=== PATIENT | female | born 1965 | race Caucasian/White ===

== ENCOUNTER 2017-09-26 12:26 | Day surgery (SDC) | payer MEDICARE, OTHER ==
[~2017-09-26 12:26] MED LIST: ACET325 PO; ALPR.25 PO; ALPR.5; ALPR.5 PO; ALPR1 PO; ARIP15; ARIP15 PO; ATEN50; ATOR10; ATOR10 PO; ATOR40TA PO; ATOR80 PO; Allegra-D 12 H1 EACH; Alprazolam0.5 MG PO; BUME2; BUME2 PO; BUTALB-ACETAMI1 EACH; CARV25 PO; CARV6.25 PO; CEFU500 PO; CETI5 PO; CLON.1 PO; CLON.2; CLON.2 PO; CLOP75 PO; CODBUTACEC PO; CROM10OPSO BOTHEYES; CRUTCH4 XX; Carisoprodol350 MG PO; Crestor20 MG; DIAZ10; DIGO.125 PO; DILT120 PO; DILT30; DILT30 PO; DOXY100 PO; DOXY100T53; Dilaudid 2 mg Ta2 MG; EDARBI40 MG; EDARBI40 MG PO; ELIQUIS5 MG PO; ESOM20 PO; Enulose 2020 G/30 ML PO; Esgic Tablet1 EACH PO; FENT100TP TOP; FENT50TP TOP; FENT75TP TOP; FIORICET 50-301 EACH PO; FLONASE ALLERG9.9 ML NS; FLUC150A PO; FLUSAL2505; FLUSAL5005; FLUSAL5005 INH; FLUT.05NI; FLUT220OIA; FURO100EL IV; FURO20; FURO40 PO; FURO80 PO; Flonase 0.05% N16 GM; HYDACE5 PO; HYDACE5325; HYDMOR4 PO; HYDPAM50; Humalog Mi100 UNIT/4; Humalog100 UNIT/1 SC; INSLI100I SC; INSUASPI; Isosorbide Mono30 MG PO; K-TAB ER20 MEQ PO; LEVA.63IS IH; LEVA.63IS INH; LIDO5TO; LISI5 PO; LORA.5 PO; Lasix 10 mg/10 MG/ML INJ; Lisinopril2.5 MG; Lisinopril2.5 MG PO; Lopressor 25 mg25 MG PO; MEDICAL MARIJUANA; METCAR500 PO; METCAR750 PO; METO10; METO10 PO; METO2.5; METO2.5 PO; METO25; METO25 PO; METO25ER PO; METO50 PO; MIGRANAL INH; Micro-K10 MEQ PO; NAC600 MG PO; NICO21TP; NITR.6SL SL; NYST100000; Nexium40 MG; Nexium40 MG PO; Nitrostat0.4 MG SL; OMEP20ER; ONDA4 PO; ONDA4ODT MM; ONDA8; ONDA8 PO; OXYACE5T PO; OXYC20ER PO; OXYC30; OXYC30 PO; OXYC30ER PO; OXYC5 PO; OXYC80ER PO; Oxycontin60 MG; PANT40 PO; PARI1 PO; PARICALCITOL2 MCG PO; PARO10; PARO20 PO; PARO25; PARO30; PIOG15; POTA10T PO; POTA8; POTCHL20ER; POTCHL20ER PO; PRED10 PO; PREG100; PREG100 PO; PREG200 PO; PROM25; PROM25 PO; PROM25S PR; PSEU120ER PO; Phenergan25 MG PR; Potassium Chlo10 ME1; RANI150; RANI150 PO; RANO500T PO; REGLAN; ROSU10TA PO; RXOXYACE PO; Ranitidine HCl300 MG; Robaxin750 MG; Roxicodone15 MG PO; SOLI5; SOLI5 PO; SOMA250 MG; SOMA350 MG PO; SPIR25 PO; SPIR50 PO; SUCR1 PO; SUMA20NI; TOPI100; TOPI100 PO; TOPI25 PO; TRIA50 PO; TRIHYD253B PO; Treximet 85-501 EACH; VALS80 PO; XARELTO15 MG PO; XARELTO20 MG PO; Xopenex Hfa15 GM INH; [UNRECOGNIZED DRUG - CODE]
[2018-01-04] MEDS ORDERED: MIDO2.5 PO (16:11)
[2018-05-13] MEDS ORDERED: ALPR.25 PO (23:34)
== END 2017-09-26 15:37 | disposition home or self-care (01) ==
LOC: ATC 12:26
DX: E87.79 Other fluid overload (principal)
CPT/HCPCS: 96374; J1940

== ENCOUNTER 2017-10-17 14:32 | Day surgery (SDC) | payer MEDICARE, OTHER ==
[2017-10-17] MEDS ORDERED: ENTRESTO 24 MG1 EACH PO (15:47)
[2018-01-04] MEDS ORDERED: MIDO2.5 PO (16:11)
[2018-05-13] MEDS ORDERED: ALPR.25 PO (23:34)
== END 2017-10-17 15:48 | disposition home or self-care (01) ==
LOC: ATC 14:32
DX: E87.79 Other fluid overload (principal)
CPT/HCPCS: 96374; J1940

== ENCOUNTER 2017-12-02 09:52 | Inpatient (IN) | payer MEDICARE, OTHER ==
[~2017-12-02] VITALS: Ht 167.6 cm; Wt 86.2 kg
[~2017-12-02 09:52] MED LIST changes: +ENTRESTO 24 MG1 EACH PO
[2017-12-02 10:36] LABS: PO2 Arterial 60.2 mmHg (80-100)
[2017-12-02 10:37] LABS: PCO2 Arterial 71.1 mmHg (35-45); pH Blood Arterial 7.12 (7.35-7.45)
[2017-12-02 10:46] LABS: BASOPHILS ABSOLUTE AUTO 0.05 K/mm3 (0.00-0.23); BASOPHILS PERCENT AUTO 0 % (0-2); EOSINOPHILS ABSOLUTE AUTO 0.11 K/mm3 (0.00-0.68); EOSINOPHILS PERCENT AUTO 1 % (0-6); Hematocrit 40.6 % (33.0-51.0); Hemoglobin 11.9 g/dL (11.5-16.0); Mean Corpuscular HGB 26.2 pg (26.0-34.0); Mean Corpuscular HGB Conc 29.3 g/dL (31.5-36.5); Mean Corpuscular Volume 89 fL (80-100); Mean Platelet Volume 10.6 fL (9.1-12.4); Platelet Count 159 K/mm3 (150-400); RDW Standard Deviation 59.3 fL (35.1-46.3); Red Blood Cell Count 4.55 M/mm3 (3.80-5.20); White Blood Cell Count 15.96 K/mm3 (4.00-11.30)
[2017-12-02 10:48] LABS: Bilirubin, Urine Neg (Neg); Blood, Urine 2+ (Neg); Glucose Qualitative, Urine 2+ (Neg); Ketones, Urine 1+ (Neg); Leukocyte Esterase, Urine Neg (Neg); Nitrite, Urine Neg (Neg); Protein, Urine 4+ (Neg); Urobilinogen, Urine NORM (Normal)
[2017-12-02 10:52] LABS: IMMATURE GRAN PERCENT AUTO 1 % (0-1); LYMPHOCYTES ABSOLUTE AUTO 2.47 K/mm3 (0.84-5.20); LYMPHOCYTES PERCENT AUTO 16 % (21-46); MONOCYTES ABSOLUTE AUTO 0.15 K/mm3 (0.16-1.47); MONOCYTES PERCENT AUTO 1 % (4-13); NEUTROPHILS ABSOLUTE AUTO 12.98 K/mm3 (1.96-9.15); NEUTROPHILS PERCENT AUTO 81 % (41-73)
[2017-12-02 11:03] LABS: Troponin I <0.015 ng/mL (0.000-0.040)
[2017-12-02 11:05] LABS: Alanine Aminotransfer (ALT/SGP 83 U/L (12-78); Albumin, Blood 2.5 g/dL (3.4-5.0); Albumin/Globulin Ratio 0.7 (0.8-1.8); Alk Phos 151 U/L (50-136); Anion Gap 9 mmol/L (6-16); Aspartate Aminotrans (AST/SGOT 105 U/L (12-37); Bilirubin, Total 0.4 mg/dL (0.1-1.0); Blood Urea Nitrogen 15 mg/dL (8-24); Bun/Creatinine Ratio 16.7 (12.0-20.0); CO2, Blood 23 mmol/L (21-32); Calcium, Blood 9.3 mg/dL (8.5-10.1); Chloride, Blood 109 mmol/L (98-108); Globulin, Blood 3.4 g/dL (2.2-4.0); Glomerular Filtration Rate >60 (60-); Glucose, Blood 414 mg/dL (70-99); Potassium, Blood 5.1 mmol/L (3.5-5.5); Sodium, Blood 141 mmol/L (136-145); Total Protein, Blood 5.9 g/dL (6.4-8.2)
[2017-12-02 11:05] LABS: U Amphetamine Screen Not Detected; U Barbituate Screen DETECTED; U Methamphetamine Screen Not Detected
[2017-12-02 11:06] LABS: Appearance, Urine Cloudy (Clear); Color, Urine Yellow (P-Yellow); U Benzodiazapine Screen DETECTED; U Buprenorphine Screen Not Detected; U Cannabinoids Screen DETECTED; U Cocaine Screen Not Detected; U Methadone Screen Not Detected; U Opiates Screen Not Detected; U Oxycodone Screen DETECTED; U Phencyclidine Screen Not Detected; U Propoxyphene Screen Not Detected
[2017-12-02 11:07] LABS: Hyaline Casts 0-2 /lpf (0-2)
[2017-12-02 11:08] LABS: Amorphous Light (0-Heavy); Bacteria Few /hpf; Squamous Epithelial Cells Few /hpf (Few)
[2017-12-02 11:08] LABS: International Normalized Ratio 1.21; Prothrombin Time Results 12.7 Sec (9.7-11.5)
[2017-12-02 12:08] LABS: pH Blood Arterial 7.25 (7.35-7.45)
[2017-12-02 14:44] LABS: Creatine Kinase MB 1.5 ng/mL (0.0-3.6); Creatine Kinase MB Index 2.5 (0.0-4.0); Magnesium, Blood 1.9 mg/dL (1.6-2.4)
[2017-12-02 14:53] LABS: Phosphorus, Blood 3.7 mg/dL (2.5-4.9); Troponin I 0.073 ng/mL (0.000-0.040)
[2017-12-03 00:47] LABS: BASOPHILS ABSOLUTE AUTO 0.01 K/mm3 (0.00-0.23); BASOPHILS PERCENT AUTO 0 % (0-2); EOSINOPHILS ABSOLUTE AUTO 0.01 K/mm3 (0.00-0.68); EOSINOPHILS PERCENT AUTO 0 % (0-6); Hemoglobin 13.2 g/dL (11.5-16.0); IMMATURE GRAN ABSOLUTE AUTO 0.04 K/mm3 (0.00-0.10); IMMATURE GRAN PERCENT AUTO 0 % (0-1); LYMPHOCYTES ABSOLUTE AUTO 1.69 K/mm3 (0.84-5.20); LYMPHOCYTES PERCENT AUTO 15 % (21-46); MONOCYTES ABSOLUTE AUTO 1.07 K/mm3 (0.16-1.47); MONOCYTES PERCENT AUTO 9 % (4-13); Mean Corpuscular HGB 26.1 pg (26.0-34.0); Mean Corpuscular HGB Conc 30.7 g/dL (31.5-36.5); Mean Platelet Volume 11.6 fL (9.1-12.4); NEUTROPHILS ABSOLUTE AUTO 8.62 K/mm3 (1.96-9.15); NEUTROPHILS PERCENT AUTO 75 % (41-73); Platelet Count 165 K/mm3 (150-400); RDW Coefficient Variation 18.4 % (11.7-14.2); RDW Standard Deviation 57.1 fL (35.1-46.3); Red Blood Cell Count 5.06 M/mm3 (3.80-5.20); White Blood Cell Count 11.44 K/mm3 (4.00-11.30)
[2017-12-03 00:49] LABS: Mean Corpuscular Volume 85 fL (80-100)
[2017-12-03 01:07] LABS: Creatine Kinase MB 2.8 ng/mL (0.0-3.6); Creatine Kinase MB Index 4.2 (0.0-4.0); Troponin I 0.145 ng/mL (0.000-0.040)
[2017-12-03 01:10] LABS: Alanine Aminotransfer (ALT/SGP 96 U/L (12-78); Albumin/Globulin Ratio 0.9 (0.8-1.8); Alk Phos 151 U/L (50-136); Anion Gap 8 mmol/L (6-16); Aspartate Aminotrans (AST/SGOT 70 U/L (12-37); Bilirubin, Total 0.7 mg/dL (0.1-1.0); Blood Urea Nitrogen 22 mg/dL (8-24); Bun/Creatinine Ratio 22.9 (12.0-20.0); CO2, Blood 22 mmol/L (21-32); Calcium, Blood 8.7 mg/dL (8.5-10.1); Chloride, Blood 113 mmol/L (98-108); Creatinine, Blood 0.96 mg/dL (0.40-1.00); Globulin, Blood 3.5 g/dL (2.2-4.0); Glomerular Filtration Rate >60 (60-); Glucose, Blood 133 mg/dL (70-99); Potassium, Blood 4.4 mmol/L (3.5-5.5); Sodium, Blood 143 mmol/L (136-145); Total Protein, Blood 6.5 g/dL (6.4-8.2)
[2017-12-03 05:33] LABS: PCO2 Arterial 32.8 mmHg (35-45); PO2 Arterial 95.1 mmHg (80-100); pH Blood Arterial 7.44 (7.35-7.45)
[2017-12-03 14:14] LABS: Hematocrit 41.3 % (33.0-51.0)
[2017-12-04 04:00] LABS: BASOPHILS ABSOLUTE AUTO 0.01 K/mm3 (0.00-0.23); BASOPHILS PERCENT AUTO 0 % (0-2); EOSINOPHILS ABSOLUTE AUTO 0.02 K/mm3 (0.00-0.68); EOSINOPHILS PERCENT AUTO 0 % (0-6); Hematocrit 37.3 % (33.0-51.0); IMMATURE GRAN ABSOLUTE AUTO 0.04 K/mm3 (0.00-0.10); IMMATURE GRAN PERCENT AUTO 0 % (0-1); LYMPHOCYTES ABSOLUTE AUTO 1.92 K/mm3 (0.84-5.20); LYMPHOCYTES PERCENT AUTO 14 % (21-46); MONOCYTES ABSOLUTE AUTO 1.09 K/mm3 (0.16-1.47); MONOCYTES PERCENT AUTO 8 % (4-13); Mean Corpuscular HGB 26.4 pg (26.0-34.0); Mean Corpuscular HGB Conc 32.2 g/dL (31.5-36.5); NEUTROPHILS ABSOLUTE AUTO 10.38 K/mm3 (1.96-9.15); NEUTROPHILS PERCENT AUTO 77 % (41-73); Platelet Count 140 K/mm3 (150-400); RDW Coefficient Variation 18.8 % (11.7-14.2); RDW Standard Deviation 56.6 fL (35.1-46.3); Red Blood Cell Count 4.55 M/mm3 (3.80-5.20); White Blood Cell Count 13.46 K/mm3 (4.00-11.30)
[2017-12-04 04:07] LABS: Mean Corpuscular Volume 82 fL (80-100)
[2017-12-04 04:19] LABS: Alanine Aminotransfer (ALT/SGP 62 U/L (12-78); Albumin, Blood 2.8 g/dL (3.4-5.0); Albumin/Globulin Ratio 0.8 (0.8-1.8); Alk Phos 115 U/L (50-136); Anion Gap 8 mmol/L (6-16); Aspartate Aminotrans (AST/SGOT 25 U/L (12-37); Bilirubin, Total 0.4 mg/dL (0.1-1.0); Blood Urea Nitrogen 20 mg/dL (8-24); Bun/Creatinine Ratio 23.7 (12.0-20.0); CO2, Blood 27 mmol/L (21-32); Chloride, Blood 108 mmol/L (98-108); Creatinine, Blood 0.84 mg/dL (0.40-1.00); Globulin, Blood 3.3 g/dL (2.2-4.0); Glomerular Filtration Rate >60 (60-); Glucose, Blood 135 mg/dL (70-99); Magnesium, Blood 1.6 mg/dL (1.6-2.4); Phosphorus, Blood 2.5 mg/dL (2.5-4.9); Sodium, Blood 143 mmol/L (136-145); Total Protein, Blood 6.1 g/dL (6.4-8.2)
[2017-12-04 06:01] LABS: PCO2 Arterial 33.6 mmHg (35-45); PO2 Arterial 58.4 mmHg (80-100); pH Blood Arterial 7.54 (7.35-7.45)
[2017-12-05 05:17] LABS: BASOPHILS ABSOLUTE AUTO 0.03 K/mm3 (0.00-0.23); BASOPHILS PERCENT AUTO 0 % (0-2); EOSINOPHILS ABSOLUTE AUTO 0.12 K/mm3 (0.00-0.68); EOSINOPHILS PERCENT AUTO 2 % (0-6); Hematocrit 32.8 % (33.0-51.0); Hemoglobin 10.2 g/dL (11.5-16.0); IMMATURE GRAN ABSOLUTE AUTO 0.03 K/mm3 (0.00-0.10); IMMATURE GRAN PERCENT AUTO 0 % (0-1); LYMPHOCYTES ABSOLUTE AUTO 2.58 K/mm3 (0.84-5.20); LYMPHOCYTES PERCENT AUTO 31 % (21-46); MONOCYTES ABSOLUTE AUTO 0.72 K/mm3 (0.16-1.47); MONOCYTES PERCENT AUTO 9 % (4-13); Mean Corpuscular HGB 26.3 pg (26.0-34.0); Mean Corpuscular HGB Conc 31.1 g/dL (31.5-36.5); Mean Platelet Volume 11.2 fL (9.1-12.4); NEUTROPHILS ABSOLUTE AUTO 4.77 K/mm3 (1.96-9.15); NEUTROPHILS PERCENT AUTO 58 % (41-73); Platelet Count 107 K/mm3 (150-400); RDW Coefficient Variation 18.6 % (11.7-14.2); RDW Standard Deviation 57.1 fL (35.1-46.3); Red Blood Cell Count 3.88 M/mm3 (3.80-5.20); White Blood Cell Count 8.25 K/mm3 (4.00-11.30)
[2017-12-05 05:24] LABS: Mean Corpuscular Volume 85 fL (80-100)
[2017-12-05 05:40] LABS: Magnesium, Blood 1.6 mg/dL (1.6-2.4)
[2017-12-05 05:41] LABS: Anion Gap 7 mmol/L (6-16); Blood Urea Nitrogen 18 mg/dL (8-24); Bun/Creatinine Ratio 23.3 (12.0-20.0); CO2, Blood 29 mmol/L (21-32); Calcium, Blood 7.8 mg/dL (8.5-10.1); Chloride, Blood 105 mmol/L (98-108); Creatinine, Blood 0.77 mg/dL (0.40-1.00); Glomerular Filtration Rate >60 (60-); Glucose, Blood 90 mg/dL (70-99); Phosphorus, Blood 3.2 mg/dL (2.5-4.9); Potassium, Blood 3.1 mmol/L (3.5-5.5); Sodium, Blood 141 mmol/L (136-145)
[2017-12-05 06:18] LABS: PCO2 Arterial 47.9 mmHg (35-45); pH Blood Arterial 7.42 (7.35-7.45)
[2017-12-06 04:40] LABS: BASOPHILS ABSOLUTE AUTO 0.03 K/mm3 (0.00-0.23); BASOPHILS PERCENT AUTO 0 % (0-2); EOSINOPHILS ABSOLUTE AUTO 0.16 K/mm3 (0.00-0.68); EOSINOPHILS PERCENT AUTO 2 % (0-6); Hematocrit 36.9 % (33.0-51.0); Hemoglobin 11.5 g/dL (11.5-16.0); IMMATURE GRAN ABSOLUTE AUTO 0.02 K/mm3 (0.00-0.10); IMMATURE GRAN PERCENT AUTO 0 % (0-1); LYMPHOCYTES ABSOLUTE AUTO 2.38 K/mm3 (0.84-5.20); LYMPHOCYTES PERCENT AUTO 30 % (21-46); MONOCYTES ABSOLUTE AUTO 0.69 K/mm3 (0.16-1.47); MONOCYTES PERCENT AUTO 9 % (4-13); Mean Corpuscular HGB 26.3 pg (26.0-34.0); Mean Corpuscular HGB Conc 31.2 g/dL (31.5-36.5); Mean Corpuscular Volume 84 fL (80-100); Mean Platelet Volume 11.3 fL (9.1-12.4); NEUTROPHILS ABSOLUTE AUTO 4.62 K/mm3 (1.96-9.15); NEUTROPHILS PERCENT AUTO 59 % (41-73); Platelet Count 124 K/mm3 (150-400); RDW Coefficient Variation 17.5 % (11.7-14.2); RDW Standard Deviation 54.1 fL (35.1-46.3); Red Blood Cell Count 4.37 M/mm3 (3.80-5.20)
[2017-12-06 04:54] LABS: Anion Gap 7 mmol/L (6-16); Blood Urea Nitrogen 15 mg/dL (8-24); CO2, Blood 31 mmol/L (21-32); Calcium, Blood 8.2 mg/dL (8.5-10.1); Chloride, Blood 100 mmol/L (98-108); Creatinine, Blood 0.83 mg/dL (0.40-1.00); Glomerular Filtration Rate >60 (60-); Glucose, Blood 88 mg/dL (70-99); Magnesium, Blood 1.6 mg/dL (1.6-2.4); Potassium, Blood 3.2 mmol/L (3.5-5.5); Sodium, Blood 138 mmol/L (136-145)
[2017-12-06] MEDS ORDERED: DOXY100 PO (12:09)
[2018-01-04] MEDS ORDERED: MIDO2.5 PO (16:11)
[2018-05-13] MEDS ORDERED: ALPR.25 PO (23:34)
== END 2017-12-06 19:48 | disposition home or self-care (01) | DRG 208 ==
LOC: ER 09:52 → ICUE 12:10 → ICUW 12:10 → PCU 12:10 → ICUE 13:26 → PCU 12-05 18:22
PROVIDERS: Family Medicine; Internal Medicine; Internal Medicine Critical Care Medicine
PROC: 5A1945Z Respiratory Ventilation, 24-96 Consecutive Hours (ICD-10-PCS; principal; 2017-12-02)
PROC: 30233N1 Transfusion of Nonautologous Red Blood Cells into Peripheral Vein, Percutaneous Approach (ICD-10-PCS; 2017-12-04)
DX: J96.01 Acute respiratory failure with hypoxia (principal); I46.9 Cardiac arrest, cause unspecified; J69.0 Pneumonitis due to inhalation of food and vomit; G92 Toxic encephalopathy; I50.23 Acute on chronic systolic (congestive) heart failure; J18.9 Pneumonia, unspecified organism; K92.2 Gastrointestinal hemorrhage, unspecified; R55 Syncope and collapse; I48.0 Paroxysmal atrial fibrillation; E11.9 Type 2 diabetes mellitus without complications; T40.605A Adverse effect of unspecified narcotics, initial encounter; J44.9 Chronic obstructive pulmonary disease, unspecified; R53.81 Other malaise; G89.29 Other chronic pain; Z79.4 Long term (current) use of insulin; Z79.01 Long term (current) use of anticoagulants; R41.89 Other symptoms and signs involving cognitive functions and awareness
CPT/HCPCS: 31720; 36415; 36600; 51702; 71045; 71046; 80048; 80053; 81001; 82550; 82553; 82803; 82947; 83605; 83735; 84100; 84484; 85014; 85018; 85025; 85610; 87040; 87070; 87086; 87205; 92950; 93005; 93010; 93306; 94002; 94003; 94640; 94667; 94760; 96365; 96375; 97116; 97162; 97530; 99291; C9113; G8978; G8979; J0696; J1815; J1940; J2060; J3010; J3475; J3480; J7030; J7060

== ENCOUNTER 2017-12-10 09:00 | Day surgery (SDC) | payer MEDICARE, OTHER ==
[2018-01-04] MEDS ORDERED: MIDO2.5 PO (16:11)
[2018-05-13] MEDS ORDERED: ALPR.25 PO (23:34)
== END 2017-12-10 11:00 | disposition home or self-care (01) ==
LOC: ATC 09:00
DX: E87.79 Other fluid overload (principal); Z88.8 Allergy status to other drugs, medicaments and biological substances
CPT/HCPCS: 96374; J1940

== ENCOUNTER 2017-12-11 15:55 | Emergency (ER) | payer MEDICARE, OTHER ==
[~2017-12-11] VITALS: Ht 160 cm; Wt 77.1 kg
[2018-01-04] MEDS ORDERED: MIDO2.5 PO (16:11)
[2018-05-13] MEDS ORDERED: ALPR.25 PO (23:34)
== END 2017-12-11 18:09 | disposition home or self-care (01) ==
LOC: ER 15:55
DX: M79.662 Pain in left lower leg (principal); I50.9 Heart failure, unspecified; J44.9 Chronic obstructive pulmonary disease, unspecified; E11.22 Type 2 diabetes mellitus with diabetic chronic kidney disease; N18.9 Chronic kidney disease, unspecified; F17.210 Nicotine dependence, cigarettes, uncomplicated; Z88.5 Allergy status to narcotic agent; Z91.013 Allergy to seafood; Z88.8 Allergy status to other drugs, medicaments and biological substances; Z88.0 Allergy status to penicillin; Z88.2 Allergy status to sulfonamides; Z88.6 Allergy status to analgesic agent; Z88.1 Allergy status to other antibiotic agents; Z91.018 Allergy to other foods; Z79.899 Other long term (current) drug therapy; Z86.73 Personal history of transient ischemic attack (TIA), and cerebral infarction without residual deficits; Z79.01 Long term (current) use of anticoagulants
CPT/HCPCS: 99282

== ENCOUNTER 2017-12-30 16:20 | Inpatient (IN) | payer MEDICARE, OTHER ==
[~2017-12-30] VITALS: Ht 162.6 cm; Wt 72.5 kg
[2017-12-30 18:33] LABS: BASOPHILS ABSOLUTE AUTO 0.03 K/mm3 (0.00-0.23); BASOPHILS PERCENT AUTO 0 % (0-2); EOSINOPHILS ABSOLUTE AUTO 0.18 K/mm3 (0.00-0.68); EOSINOPHILS PERCENT AUTO 2 % (0-6); Hematocrit 38.3 % (33.0-51.0); Hemoglobin 11.7 g/dL (11.5-16.0); IMMATURE GRAN ABSOLUTE AUTO 0.02 K/mm3 (0.00-0.10); IMMATURE GRAN PERCENT AUTO 0 % (0-1); LYMPHOCYTES ABSOLUTE AUTO 2.95 K/mm3 (0.84-5.20); LYMPHOCYTES PERCENT AUTO 29 % (21-46); MONOCYTES ABSOLUTE AUTO 0.76 K/mm3 (0.16-1.47); MONOCYTES PERCENT AUTO 7 % (4-13); Mean Corpuscular HGB 25.8 pg (26.0-34.0); Mean Corpuscular HGB Conc 30.5 g/dL (31.5-36.5); Mean Corpuscular Volume 85 fL (80-100); Mean Platelet Volume 10.4 fL (9.1-12.4); NEUTROPHILS ABSOLUTE AUTO 6.32 K/mm3 (1.96-9.15); NEUTROPHILS PERCENT AUTO 62 % (41-73); Platelet Count 224 K/mm3 (150-400); RDW Coefficient Variation 16.1 % (11.7-14.2); RDW Standard Deviation 50.4 fL (35.1-46.3); Red Blood Cell Count 4.53 M/mm3 (3.80-5.20); White Blood Cell Count 10.26 K/mm3 (4.00-11.30)
[2017-12-30 18:44] LABS: International Normalized Ratio 1.23; Prothrombin Time Results 12.9 Sec (9.7-11.5)
[2017-12-30 18:52] LABS: Alanine Aminotransfer (ALT/SGP 17 U/L (12-78); Albumin, Blood 3.1 g/dL (3.4-5.0); Albumin/Globulin Ratio 0.8 (0.8-1.8); Alk Phos 104 U/L (50-136); Anion Gap 6 mmol/L (6-16); Aspartate Aminotrans (AST/SGOT 12 U/L (12-37); Bilirubin, Total 0.3 mg/dL (0.1-1.0); Blood Urea Nitrogen 8 mg/dL (8-24); Bun/Creatinine Ratio 10.6 (12.0-20.0); CO2, Blood 30 mmol/L (21-32); Calcium, Blood 8.9 mg/dL (8.5-10.1); Chloride, Blood 106 mmol/L (98-108); Creatinine, Blood 0.76 mg/dL (0.40-1.00); Glomerular Filtration Rate >60 (60-); Glucose, Blood 114 mg/dL (70-99); Potassium, Blood 3.3 mmol/L (3.5-5.5); Sodium, Blood 142 mmol/L (136-145); Total Protein, Blood 7.1 g/dL (6.4-8.2); Troponin I <0.015 ng/mL (0.000-0.040)
[2017-12-30] MEDS ORDERED: BUME2 PO (22:52)
[2017-12-30] MEDS ORDERED: METO2.5 PO (22:53)
[2017-12-31 00:14] LABS: Source, Urine Catheter
[2017-12-31 00:17] LABS: Bilirubin, Urine Neg (Neg); Blood, Urine Neg (Neg); Glucose Qualitative, Urine Neg (Neg); Ketones, Urine 1+ (Neg); Leukocyte Esterase, Urine 1+ (Neg); Nitrite, Urine Neg (Neg); Protein, Urine 1+ (Neg); Specific Gravity, Urine 1.015 (1.003-1.022); Urobilinogen, Urine NORM (Normal); pH, Urine 6.5 (5.0-8.0)
[2017-12-31 00:22] LABS: Amorphous Light (0-Heavy); Appearance, Urine Hazy (Clear); Bacteria Few /hpf; Color, Urine Amber (P-Yellow); Mucus Light (0-Heavy); Red Blood Cells, Urine Not Seen /hpf (0-2); Squamous Epithelial Cells Few /hpf (Few)
[2017-12-31 00:23] LABS: Transitional Epithelial Cells Few /hpf (0-Rare); WBC Cast 0-2 /lpf (0)
[2017-12-31 16:23] LABS: Albumin, Blood 3.2 g/dL (3.4-5.0); Anion Gap 4 mmol/L (6-16); Blood Urea Nitrogen 15 mg/dL (8-24); Bun/Creatinine Ratio 11.7 (12.0-20.0); CO2, Blood 33 mmol/L (21-32); Chloride, Blood 99 mmol/L (98-108); Creatinine, Blood 1.28 mg/dL (0.40-1.00); Glomerular Filtration Rate 47 (60-); Glucose, Blood 111 mg/dL (70-99); Phosphorus, Blood 5.2 mg/dL (2.5-4.9); Sodium, Blood 136 mmol/L (136-145)
== END 2017-12-31 19:05 | disposition home or self-care (01) | DRG 291 ==
LOC: ER 16:20 → PCU 20:50
PROVIDERS: Internal Medicine; Physician Assistant Medical
DX: I13.0 Hypertensive heart and chronic kidney disease with heart failure and stage 1 through stage 4 chronic kidney disease, or unspecified chronic kidney disease (principal); I50.23 Acute on chronic systolic (congestive) heart failure; J96.21 Acute and chronic respiratory failure with hypoxia; J44.1 Chronic obstructive pulmonary disease with (acute) exacerbation; F11.20 Opioid dependence, uncomplicated; E11.22 Type 2 diabetes mellitus with diabetic chronic kidney disease; N18.9 Chronic kidney disease, unspecified; I48.0 Paroxysmal atrial fibrillation; E11.42 Type 2 diabetes mellitus with diabetic polyneuropathy; I25.10 Atherosclerotic heart disease of native coronary artery without angina pectoris; G47.33 Obstructive sleep apnea (adult) (pediatric); F17.210 Nicotine dependence, cigarettes, uncomplicated; E87.6 Hypokalemia; F32.9 Major depressive disorder, single episode, unspecified; F41.9 Anxiety disorder, unspecified; K21.9 Gastro-esophageal reflux disease without esophagitis; M79.7 Fibromyalgia; Z91.14 Patient's other noncompliance with medication regimen; Z79.01 Long term (current) use of anticoagulants; Z79.02 Long term (current) use of antithrombotics/antiplatelets; Z86.73 Personal history of transient ischemic attack (TIA), and cerebral infarction without residual deficits; Z79.84 Long term (current) use of oral hypoglycemic drugs; I25.2 Old myocardial infarction; Z98.1 Arthrodesis status; Z88.0 Allergy status to penicillin; Z71.6 Tobacco abuse counseling; Z88.8 Allergy status to other drugs, medicaments and biological substances
CPT/HCPCS: 36415; 51702; 71045; 80053; 80069; 81001; 82947; 83880; 84484; 85025; 85610; 93005; 93010; 94640; 96365; 96367; 96375; 99285; J0692; J1940; J2930; J3010; J3370; J7030

== ENCOUNTER → 2018-02-08 | Outpatient (CLI) | payer MEDICARE, OTHER ==
[~2018-02-08] MED LIST changes: +MIDO2.5 PO
[2018-02-08 19:31] LABS: Alanine Aminotransfer (ALT/SGP 21 U/L (12-78); Albumin, Blood 3.5 g/dL (3.4-5.0); Albumin/Globulin Ratio 1.2 (0.8-1.8); Alk Phos 97 U/L (50-136); Anion Gap 8 mmol/L (6-16); Aspartate Aminotrans (AST/SGOT 19 U/L (12-37); Bilirubin, Total 0.4 mg/dL (0.1-1.0); Blood Urea Nitrogen 13 mg/dL (8-24); Bun/Creatinine Ratio 14.1 (12.0-20.0); CO2, Blood 30 mmol/L (21-32); Calcium, Blood 8.5 mg/dL (8.5-10.1); Chloride, Blood 101 mmol/L (98-108); Creatinine, Blood 0.92 mg/dL (0.40-1.00); Glomerular Filtration Rate >60 (60-); Glucose, Blood 87 mg/dL (70-99); Magnesium, Blood 1.7 mg/dL (1.6-2.4); Sodium, Blood 139 mmol/L (136-145); Total Protein, Blood 6.5 g/dL (6.4-8.2)
== END | disposition home or self-care (01) ==
LOC: LAB 12:00 → LAB SHORT 12:00
PROVIDERS: Internal Medicine Hematology & Oncology
DX: K31.84 Gastroparesis (principal); I51.89 Other ill-defined heart diseases; R06.00 Dyspnea, unspecified
CPT/HCPCS: 80053; 83735

== ENCOUNTER 2018-02-20 06:20 | Day surgery (SDC) | payer MEDICARE, OTHER ==
[~2018-02-20] VITALS: Ht 160 cm; Wt 78.9 kg
[2018-02-20] MEDS ORDERED: METO50 PO (07:02)
[2018-02-20] MEDS ORDERED: Amiodarone HCl200 MG PO (07:09)
== END 2018-02-20 22:53 | disposition home or self-care (01) ==
LOC: ORSCMMR 06:20 → ORD 07:30 → ORSCMMR 22:53
PROVIDERS: Surgery
PROC: 0JH60WZ Insertion of Totally Implantable Vascular Access Device into Chest Subcutaneous Tissue and Fascia, Open Approach (ICD-10-PCS; principal; 2018-02-20 07:30)
PROC: 0JPV0WZ Removal of Totally Implantable Vascular Access Device from Upper Extremity Subcutaneous Tissue and Fascia, Open Approach (ICD-10-PCS; principal; 2018-02-20 07:30)
DX: T82.524A Displacement of infusion catheter, initial encounter (principal); Z45.2 Encounter for adjustment and management of vascular access device; E87.79 Other fluid overload; J81.1 Chronic pulmonary edema; Z86.74 Personal history of sudden cardiac arrest; I25.10 Atherosclerotic heart disease of native coronary artery without angina pectoris; F17.210 Nicotine dependence, cigarettes, uncomplicated; F41.8 Other specified anxiety disorders; J44.9 Chronic obstructive pulmonary disease, unspecified; K21.9 Gastro-esophageal reflux disease without esophagitis; E11.9 Type 2 diabetes mellitus without complications; I10 Essential (primary) hypertension; E78.00 Pure hypercholesterolemia, unspecified; G47.33 Obstructive sleep apnea (adult) (pediatric); Z79.01 Long term (current) use of anticoagulants; Z79.4 Long term (current) use of insulin; Z79.899 Other long term (current) drug therapy
CPT/HCPCS: 77001; 82947; C1788; J0690; J1642; J2001; J2250; J3010; J7120

== ENCOUNTER 2018-04-04 02:52 | Inpatient (IN) | payer MEDICARE, OTHER ==
[~2018-04-04] VITALS: Ht 162.6 cm; Wt 74.4 kg
[~2018-04-04 02:52] MED LIST changes: +Amiodarone HCl200 MG PO
[2018-04-04 03:06] LABS: BASOPHILS ABSOLUTE AUTO 0.06 K/mm3 (0.00-0.23); BASOPHILS PERCENT AUTO 0 % (0-2); EOSINOPHILS ABSOLUTE AUTO 0.09 K/mm3 (0.00-0.68); EOSINOPHILS PERCENT AUTO 1 % (0-6); Hematocrit 44.6 % (33.0-51.0); IMMATURE GRAN ABSOLUTE AUTO 0.08 K/mm3 (0.00-0.10); IMMATURE GRAN PERCENT AUTO 1 % (0-1); LYMPHOCYTES ABSOLUTE AUTO 3.16 K/mm3 (0.84-5.20); LYMPHOCYTES PERCENT AUTO 21 % (21-46); MONOCYTES ABSOLUTE AUTO 1.01 K/mm3 (0.16-1.47); MONOCYTES PERCENT AUTO 7 % (4-13); Mean Corpuscular HGB 22.6 pg (26.0-34.0); Mean Corpuscular HGB Conc 29.1 g/dL (31.5-36.5); Mean Corpuscular Volume 78 fL (80-100); Mean Platelet Volume 11.2 fL (9.1-12.4); NEUTROPHILS PERCENT AUTO 71 % (41-73); Platelet Count 228 K/mm3 (150-400); RDW Coefficient Variation 19.9 % (11.7-14.2); RDW Standard Deviation 53.5 fL (35.1-46.3); Red Blood Cell Count 5.74 M/mm3 (3.80-5.20)
[2018-04-04 03:24] LABS: PCO2 Venous 53.7 mmHg (38-42); PO2 Venous 38.4 mmHg (38-42); pH Blood Venous 7.27 (7.34-7.37)
[2018-04-04 03:24] LABS: Alanine Aminotransfer (ALT/SGP 22 U/L (12-78); Albumin, Blood 3.5 g/dL (3.4-5.0); Albumin/Globulin Ratio 0.9 (0.8-1.8); Alk Phos 112 U/L (50-136); Anion Gap 11 mmol/L (6-16); Aspartate Aminotrans (AST/SGOT 18 U/L (12-37); Bilirubin, Total 0.5 mg/dL (0.1-1.0); Blood Urea Nitrogen 11 mg/dL (8-24); Bun/Creatinine Ratio 13.2 (12.0-20.0); CO2, Blood 26 mmol/L (21-32); Calcium, Blood 8.9 mg/dL (8.5-10.1); Chloride, Blood 100 mmol/L (98-108); Creatinine, Blood 0.83 mg/dL (0.40-1.00); Globulin, Blood 4.1 g/dL (2.2-4.0); Glomerular Filtration Rate >60 (60-); Glucose, Blood 293 mg/dL (70-99); Potassium, Blood 4.1 mmol/L (3.5-5.5); Sodium, Blood 137 mmol/L (136-145); Total Protein, Blood 7.6 g/dL (6.4-8.2); Troponin I <0.015 ng/mL (0.000-0.040)
[2018-04-04 03:25] LABS: Base Excess Venous -1.9 mmol/L; Bicarbonate Venous 21.5 mmol/L (24.0-30.0)
[2018-04-04 04:08] LABS: Base Excess Venous -1.7 mmol/L; Bicarbonate Venous 22.2 mmol/L (24.0-30.0); PCO2 Venous 51.8 mmHg (38-42); PO2 Venous 55.1 mmHg (38-42); pH Blood Venous 7.29 (7.34-7.37)
[2018-04-04 04:22] LABS: Source, Urine Catheter
[2018-04-04 04:24] LABS: Bilirubin, Urine Neg (Neg); Blood, Urine 1+ (Neg); Glucose Qualitative, Urine 1+ (Neg); Ketones, Urine 2+ (Neg); Leukocyte Esterase, Urine 1+ (Neg); Nitrite, Urine Neg (Neg); Protein, Urine 3+ (Neg); Urobilinogen, Urine NORM (Normal)
[2018-04-04 04:31] LABS: Appearance, Urine Hazy (Clear); Color, Urine Yellow (P-Yellow)
[2018-04-04 04:32] LABS: Amorphous Mod (0-Heavy); Bacteria Few /hpf; Red Blood Cells, Urine Rare /hpf (0-2); Squamous Epithelial Cells Few /hpf (Few); WBC Cast 0-2 /lpf (0)
[2018-04-04 15:05] LABS: Hematocrit 42.5 % (33.0-51.0); Hemoglobin 12.7 g/dL (11.5-16.0); Mean Corpuscular HGB 22.2 pg (26.0-34.0); Mean Corpuscular HGB Conc 29.9 g/dL (31.5-36.5); Platelet Count 234 K/mm3 (150-400); RDW Coefficient Variation 19.9 % (11.7-14.2); Red Blood Cell Count 5.73 M/mm3 (3.80-5.20); White Blood Cell Count 16.44 K/mm3 (4.00-11.30)
[2018-04-04 15:08] LABS: Mean Corpuscular Volume 74 fL (80-100); Mean Platelet Volume 10.5 fL (9.1-12.4)
[2018-04-04 15:21] LABS: Anion Gap 13 mmol/L (6-16); Blood Urea Nitrogen 17 mg/dL (8-24); Bun/Creatinine Ratio 19.9 (12.0-20.0); CO2, Blood 25 mmol/L (21-32); Chloride, Blood 99 mmol/L (98-108); Creatinine, Blood 0.86 mg/dL (0.40-1.00); Glomerular Filtration Rate >60 (60-); Glucose, Blood 249 mg/dL (70-99); Potassium, Blood 3.2 mmol/L (3.5-5.5); Sodium, Blood 137 mmol/L (136-145)
[2018-04-06 03:56] LABS: BASOPHILS ABSOLUTE AUTO 0.01 K/mm3 (0.00-0.23); BASOPHILS PERCENT AUTO 0 % (0-2); EOSINOPHILS PERCENT AUTO 0 % (0-6); Hematocrit 35.8 % (33.0-51.0); IMMATURE GRAN ABSOLUTE AUTO 0.11 K/mm3 (0.00-0.10); IMMATURE GRAN PERCENT AUTO 1 % (0-1); LYMPHOCYTES ABSOLUTE AUTO 1.05 K/mm3 (0.84-5.20); LYMPHOCYTES PERCENT AUTO 7 % (21-46); MONOCYTES ABSOLUTE AUTO 0.32 K/mm3 (0.16-1.47); MONOCYTES PERCENT AUTO 2 % (4-13); Mean Corpuscular HGB 22.1 pg (26.0-34.0); Mean Corpuscular HGB Conc 30.7 g/dL (31.5-36.5); Mean Corpuscular Volume 72 fL (80-100); NEUTROPHILS ABSOLUTE AUTO 13.51 K/mm3 (1.96-9.15); NEUTROPHILS PERCENT AUTO 90 % (41-73); Platelet Count 154 K/mm3 (150-400); RDW Coefficient Variation 19.9 % (11.7-14.2); RDW Standard Deviation 49.9 fL (35.1-46.3); Red Blood Cell Count 4.98 M/mm3 (3.80-5.20)
[2018-04-06 04:16] LABS: Anion Gap 8 mmol/L (6-16); Blood Urea Nitrogen 23 mg/dL (8-24); Bun/Creatinine Ratio 27.8 (12.0-20.0); CO2, Blood 33 mmol/L (21-32); Calcium, Blood 8.6 mg/dL (8.5-10.1); Chloride, Blood 97 mmol/L (98-108); Creatinine, Blood 0.83 mg/dL (0.40-1.00); Glomerular Filtration Rate >60 (60-); Glucose, Blood 144 mg/dL (70-99); Magnesium, Blood 1.7 mg/dL (1.6-2.4); Potassium, Blood 3.5 mmol/L (3.5-5.5); Sodium, Blood 138 mmol/L (136-145)
[2018-04-07 04:17] LABS: BASOPHILS ABSOLUTE AUTO 0.01 K/mm3 (0.00-0.23); BASOPHILS PERCENT AUTO 0 % (0-2); EOSINOPHILS PERCENT AUTO 0 % (0-6); Hemoglobin 10.5 g/dL (11.5-16.0); IMMATURE GRAN ABSOLUTE AUTO 0.09 K/mm3 (0.00-0.10); IMMATURE GRAN PERCENT AUTO 1 % (0-1); LYMPHOCYTES ABSOLUTE AUTO 0.87 K/mm3 (0.84-5.20); LYMPHOCYTES PERCENT AUTO 6 % (21-46); MONOCYTES ABSOLUTE AUTO 0.57 K/mm3 (0.16-1.47); MONOCYTES PERCENT AUTO 4 % (4-13); Mean Corpuscular HGB 22.6 pg (26.0-34.0); Mean Corpuscular HGB Conc 30.9 g/dL (31.5-36.5); Mean Corpuscular Volume 73 fL (80-100); NEUTROPHILS ABSOLUTE AUTO 12.13 K/mm3 (1.96-9.15); NEUTROPHILS PERCENT AUTO 89 % (41-73); Platelet Count 151 K/mm3 (150-400); RDW Coefficient Variation 19.7 % (11.7-14.2); RDW Standard Deviation 51.8 fL (35.1-46.3); Red Blood Cell Count 4.65 M/mm3 (3.80-5.20); White Blood Cell Count 13.67 K/mm3 (4.00-11.30)
[2018-04-07 04:25] LABS: Mean Platelet Volume 10.6 fL (9.1-12.4)
[2018-04-07 04:38] LABS: Anion Gap 5 mmol/L (6-16); Blood Urea Nitrogen 39 mg/dL (8-24); Bun/Creatinine Ratio 39.7 (12.0-20.0); CO2, Blood 35 mmol/L (21-32); Calcium, Blood 8.5 mg/dL (8.5-10.1); Chloride, Blood 97 mmol/L (98-108); Creatinine, Blood 0.98 mg/dL (0.40-1.00); Glomerular Filtration Rate >60 (60-); Glucose, Blood 157 mg/dL (70-99); Potassium, Blood 4.2 mmol/L (3.5-5.5); Sodium, Blood 137 mmol/L (136-145)
[2018-04-07] MEDS ORDERED: SERT25 PO (12:36)
[2018-04-07] MEDS ORDERED: PRED20 (12:40)
[2018-04-07] MEDS ORDERED: ALPR.5 PO (12:45)
[2018-04-07] MEDS ORDERED: OXYC10TA19 PO (13:00)
[2018-04-07] MEDS ORDERED: K-TAB ER20 MEQ PO (13:03)
== END 2018-04-07 14:30 | disposition home or self-care (01) | DRG 291 ==
LOC: ER 02:52 → ICUW 04:33 → ICUE 04:33
PROVIDERS: Emergency Medicine; Internal Medicine
PROC: 5A09357 Assistance with Respiratory Ventilation, Less than 24 Consecutive Hours, Continuous Positive Airway Pressure (ICD-10-PCS; principal; 2018-04-04)
DX: I13.0 Hypertensive heart and chronic kidney disease with heart failure and stage 1 through stage 4 chronic kidney disease, or unspecified chronic kidney disease (principal); J96.21 Acute and chronic respiratory failure with hypoxia; I50.23 Acute on chronic systolic (congestive) heart failure; I25.5 Ischemic cardiomyopathy; I25.10 Atherosclerotic heart disease of native coronary artery without angina pectoris; E78.00 Pure hypercholesterolemia, unspecified; Z86.73 Personal history of transient ischemic attack (TIA), and cerebral infarction without residual deficits; G47.33 Obstructive sleep apnea (adult) (pediatric); J44.9 Chronic obstructive pulmonary disease, unspecified; G89.4 Chronic pain syndrome; M79.7 Fibromyalgia; M19.90 Unspecified osteoarthritis, unspecified site; G43.909 Migraine, unspecified, not intractable, without status migrainosus; Z98.1 Arthrodesis status; I48.91 Unspecified atrial fibrillation; E11.9 Type 2 diabetes mellitus without complications; E87.6 Hypokalemia; Z99.81 Dependence on supplemental oxygen; Z91.89 Other specified personal risk factors, not elsewhere classified; F11.10 Opioid abuse, uncomplicated; F41.9 Anxiety disorder, unspecified; F60.3 Borderline personality disorder; N18.9 Chronic kidney disease, unspecified
CPT/HCPCS: 51702; 71045; 80048; 80053; 81001; 82803; 82947; 83735; 83880; 84484; 85025; 85027; 87086; 93005; 93010; 94640; 94660; 96365; 96366; 96372; 96375; 99291-25; 99292; J0696; J1815; J1940; J2060; J2405; J2550; J2920; J2930; J3010; J3105; J3475

== ENCOUNTER 2018-04-23 09:45 | Day surgery (SDC) | payer MEDICARE, OTHER ==
[~2018-04-23 09:45] MED LIST changes: +OXYC10TA19 PO; +PRED20; +SERT25 PO
== END 2018-04-23 14:55 | disposition home or self-care (01) ==
LOC: ATC 09:45
DX: E87.79 Other fluid overload (principal); I25.5 Ischemic cardiomyopathy; J44.9 Chronic obstructive pulmonary disease, unspecified; E11.9 Type 2 diabetes mellitus without complications; F17.210 Nicotine dependence, cigarettes, uncomplicated; I50.40 Unspecified combined systolic (congestive) and diastolic (congestive) heart failure; I25.10 Atherosclerotic heart disease of native coronary artery without angina pectoris; E87.5 Hyperkalemia
CPT/HCPCS: 96374; J1940

== ENCOUNTER 2018-04-25 00:10 | Day surgery (SDC) | payer MEDICARE, OTHER | END 2018-04-25 16:25 | disposition home or self-care (01) | LOC: ATC 00:10 | DX: E87.79 Other fluid overload (principal); I50.40 Unspecified combined systolic (congestive) and diastolic (congestive) heart failure; Z82.49 Family history of ischemic heart disease and other diseases of the circulatory system; E87.5 Hyperkalemia; E11.9 Type 2 diabetes mellitus without complications; I25.10 Atherosclerotic heart disease of native coronary artery without angina pectoris | CPT/HCPCS: 96374; J1940 ==

== ENCOUNTER 2018-04-27 00:24 | Day surgery (SDC) | payer MEDICARE, OTHER | END 2018-04-28 22:43 | disposition home or self-care (01) | LOC: ATC 00:24 | DX: E87.79 Other fluid overload (principal); I50.40 Unspecified combined systolic (congestive) and diastolic (congestive) heart failure; I25.5 Ischemic cardiomyopathy; F17.210 Nicotine dependence, cigarettes, uncomplicated; Z82.49 Family history of ischemic heart disease and other diseases of the circulatory system; E87.5 Hyperkalemia; E11.9 Type 2 diabetes mellitus without complications | CPT/HCPCS: J1940 ==

== ENCOUNTER 2018-05-06 10:20 | Day surgery (SDC) | payer MEDICARE, OTHER ==
[2018-05-06] MEDS ORDERED: CLIN300 PO (15:52)
== END 2018-05-06 15:42 | disposition home or self-care (01) ==
LOC: ATC 10:20
DX: E87.79 Other fluid overload (principal); I25.5 Ischemic cardiomyopathy; E11.22 Type 2 diabetes mellitus with diabetic chronic kidney disease; Z82.49 Family history of ischemic heart disease and other diseases of the circulatory system; N18.9 Chronic kidney disease, unspecified
CPT/HCPCS: 96374; J1940

== ENCOUNTER 2018-05-09 07:26 | Day surgery (SDC) | payer MEDICARE, OTHER ==
[~2018-05-09 07:26] MED LIST changes: +CLIN300 PO
== END 2018-05-09 16:20 | disposition home or self-care (01) ==
LOC: ATC 07:26
DX: E87.79 Other fluid overload (principal); I25.5 Ischemic cardiomyopathy; F17.210 Nicotine dependence, cigarettes, uncomplicated; E11.9 Type 2 diabetes mellitus without complications; I50.9 Heart failure, unspecified; E87.5 Hyperkalemia
CPT/HCPCS: 36593; 96374; J1940; J2997

== ENCOUNTER 2018-05-12 04:26 | Inpatient (IN) | payer MEDICARE, OTHER ==
[~2018-05-12] VITALS: Ht 160 cm; Wt 78.1 kg
[2018-05-12 04:47] LABS: Source, Urine Catheter
[2018-05-12 04:50] LABS: Appearance, Urine Hazy (Clear); Bilirubin, Urine Neg (Neg); Blood, Urine 1+ (Neg); Color, Urine Yellow (P-Yellow); Glucose Qualitative, Urine Neg (Neg); Ketones, Urine Neg (Neg); Leukocyte Esterase, Urine 1+ (Neg); Nitrite, Urine Neg (Neg); Protein, Urine 3+ (Neg); Specific Gravity, Urine 1.025 (1.003-1.022); Urobilinogen, Urine NORM (Normal)
[2018-05-12 04:51] LABS: PCO2 Arterial 68.9 mmHg (35-45); PO2 Arterial 166 mmHg (80-100)
[2018-05-12 04:52] LABS: pH Blood Arterial 7.24 (7.35-7.45)
[2018-05-12 04:57] LABS: Bacteria Few /hpf; Red Blood Cells, Urine 0-2 /hpf (0-2); Squamous Epithelial Cells Few /hpf (Few)
[2018-05-12 04:57] LABS: BASOPHILS ABSOLUTE AUTO 0.09 K/mm3 (0.00-0.23); BASOPHILS PERCENT AUTO 1 % (0-2); EOSINOPHILS ABSOLUTE AUTO 0.19 K/mm3 (0.00-0.68); EOSINOPHILS PERCENT AUTO 1 % (0-6); Hematocrit 38.9 % (33.0-51.0); IMMATURE GRAN ABSOLUTE AUTO 0.07 K/mm3 (0.00-0.10); IMMATURE GRAN PERCENT AUTO 1 % (0-1); LYMPHOCYTES ABSOLUTE AUTO 3.65 K/mm3 (0.84-5.20); LYMPHOCYTES PERCENT AUTO 27 % (21-46); MONOCYTES PERCENT AUTO 8 % (4-13); Mean Corpuscular HGB Conc 28.3 g/dL (31.5-36.5); Mean Corpuscular Volume 78 fL (80-100); Mean Platelet Volume 10.4 fL (9.1-12.4); NEUTROPHILS ABSOLUTE AUTO 8.54 K/mm3 (1.96-9.15); NEUTROPHILS PERCENT AUTO 63 % (41-73); NRBC ABSOLUTE 0.03 K/mm3 (0.00-0.02); NRBC Auto 0.2 /100 WBC (0.0-0.2); Platelet Count 282 K/mm3 (150-400); RDW Coefficient Variation 23.1 % (11.7-14.2); RDW Standard Deviation 64.3 fL (35.1-46.3); Red Blood Cell Count 5.01 M/mm3 (3.80-5.20); White Blood Cell Count 13.64 K/mm3 (4.00-11.30)
[2018-05-12 04:58] LABS: Amorphous Light ([, 0-Heavy]); Mucus Mod ([, 0-Heavy])
[2018-05-12 04:59] LABS: U Amphetamine Screen Not Detected; U Barbituate Screen Not Detected; U Benzodiazapine Screen DETECTED; U Buprenorphine Screen Not Detected; U Cannabinoids Screen DETECTED; U Cocaine Screen Not Detected; U Methadone Screen Not Detected; U Methamphetamine Screen DETECTED; U Opiates Screen Not Detected; U Oxycodone Screen DETECTED; U Phencyclidine Screen Not Detected; U Propoxyphene Screen Not Detected
[2018-05-12 05:11] LABS: International Normalized Ratio 1.26; Prothrombin Time Results 12.8 Sec (9.7-11.5)
[2018-05-12 05:17] LABS: Alanine Aminotransfer (ALT/SGP 24 U/L (12-78); Albumin, Blood 2.9 g/dL (3.4-5.0); Albumin/Globulin Ratio 0.8 (0.8-1.8); Alk Phos 107 U/L (50-136); Anion Gap 7 mmol/L (6-16); Aspartate Aminotrans (AST/SGOT 22 U/L (12-37); Bilirubin, Total 0.2 mg/dL (0.1-1.0); Blood Urea Nitrogen 28 mg/dL (8-24); Bun/Creatinine Ratio 23.3 (12.0-20.0); CO2, Blood 29 mmol/L (21-32); Calcium, Blood 8.3 mg/dL (8.5-10.1); Chloride, Blood 107 mmol/L (98-108); Ethanol (Alcohol), Blood, Med <3 mg/dL; Globulin, Blood 3.5 g/dL (2.2-4.0); Glomerular Filtration Rate 42 (60-); Glucose, Blood 166 mg/dL (70-99); Potassium, Blood 3.4 mmol/L (3.5-5.5); Sodium, Blood 143 mmol/L (136-145); Total Protein, Blood 6.4 g/dL (6.4-8.2); Troponin I <0.015 ng/mL (0.000-0.040)
[2018-05-12 13:39] LABS: Troponin I 0.208 ng/mL (0.000-0.040)
[2018-05-12] MEDS ORDERED: ELIQUIS5 MG PO (14:31)
[2018-05-12] MEDS ORDERED: Amiodarone HCl200 MG PO (14:31)
[2018-05-12] MEDS ORDERED: FURO80 PO (14:32)
[2018-05-12] MEDS ORDERED: CLOP75 PO (14:32)
[2018-05-12] MEDS ORDERED: LEVA.63IS INH (14:33)
[2018-05-12] MEDS ORDERED: METO50ER PO (14:42)
[2018-05-12] MEDS ORDERED: PREG200 PO (14:43)
[2018-05-12] MEDS ORDERED: OXYC10TA19 PO (14:43)
[2018-05-12] MEDS ORDERED: RANO500T PO (14:44)
[2018-05-12] MEDS ORDERED: PROM25 PO (14:44)
[2018-05-12] MEDS ORDERED: ROSU10TA PO (14:44)
[2018-05-12] MEDS ORDERED: SERT25 PO (14:44)
[2018-05-12] MEDS ORDERED: SPIR25 PO (14:45)
[2018-05-12 16:13] LABS: Hematocrit 36.7 % (33.0-51.0); Hemoglobin 10.9 g/dL (11.5-16.0)
[2018-05-12 16:25] LABS: Magnesium, Blood 1.5 mg/dL (1.6-2.4); Phosphorus, Blood 2.7 mg/dL (2.5-4.9)
[2018-05-13 04:47] LABS: Hematocrit 36.2 % (33.0-51.0); Hemoglobin 10.8 g/dL (11.5-16.0); Mean Corpuscular HGB 21.8 pg (26.0-34.0); Mean Corpuscular HGB Conc 29.8 g/dL (31.5-36.5); Mean Corpuscular Volume 73 fL (80-100); Mean Platelet Volume 9.7 fL (9.1-12.4); Platelet Count 241 K/mm3 (150-400); RDW Coefficient Variation 23.1 % (11.7-14.2); RDW Standard Deviation 59.2 fL (35.1-46.3); Red Blood Cell Count 4.96 M/mm3 (3.80-5.20); White Blood Cell Count 14.59 K/mm3 (4.00-11.30)
[2018-05-13 05:08] LABS: Alanine Aminotransfer (ALT/SGP 17 U/L (12-78); Albumin, Blood 2.8 g/dL (3.4-5.0); Albumin/Globulin Ratio 0.8 (0.8-1.8); Alk Phos 73 U/L (50-136); Anion Gap 6 mmol/L (6-16); Aspartate Aminotrans (AST/SGOT 12 U/L (12-37); Bilirubin, Total 0.6 mg/dL (0.1-1.0); Blood Urea Nitrogen 18 mg/dL (8-24); Bun/Creatinine Ratio 25.4 (12.0-20.0); CO2, Blood 37 mmol/L (21-32); Calcium, Blood 8.1 mg/dL (8.5-10.1); Chloride, Blood 102 mmol/L (98-108); Creatinine, Blood 0.71 mg/dL (0.40-1.00); Globulin, Blood 3.4 g/dL (2.2-4.0); Glomerular Filtration Rate >60 (60-); Glucose, Blood 138 mg/dL (70-99); Magnesium, Blood 2.2 mg/dL (1.6-2.4); Phosphorus, Blood 2.3 mg/dL (2.5-4.9); Potassium, Blood 2.8 mmol/L (3.5-5.5); Sodium, Blood 145 mmol/L (136-145); Total Protein, Blood 6.2 g/dL (6.4-8.2); Troponin I 0.158 ng/mL (0.000-0.040)
[2018-05-13 05:57] LABS: PCO2 Arterial 52 mmHg (35-45); PO2 Arterial 54.8 mmHg (80-100); pH Blood Arterial 7.48 (7.35-7.45)
[2018-05-13] MEDS ORDERED: RANI150EL PO (23:28)
[2018-05-13] MEDS ORDERED: BUME2 PO (23:30)
[2018-05-13] MEDS ORDERED: ALPR1 PO (23:34)
[2018-05-13] MEDS ORDERED: CARV25 PO (23:39)
[2018-05-14 03:50] LABS: BASOPHILS ABSOLUTE AUTO 0.07 K/mm3 (0.00-0.23); BASOPHILS PERCENT AUTO 0 % (0-2); EOSINOPHILS ABSOLUTE AUTO 0.02 K/mm3 (0.00-0.68); EOSINOPHILS PERCENT AUTO 0 % (0-6); Hematocrit 29.9 % (33.0-51.0); IMMATURE GRAN ABSOLUTE AUTO 0.09 K/mm3 (0.00-0.10); IMMATURE GRAN PERCENT AUTO 1 % (0-1); LYMPHOCYTES PERCENT AUTO 16 % (21-46); MONOCYTES ABSOLUTE AUTO 1.42 K/mm3 (0.16-1.47); MONOCYTES PERCENT AUTO 8 % (4-13); Mean Corpuscular HGB 22.2 pg (26.0-34.0); Mean Corpuscular HGB Conc 30.1 g/dL (31.5-36.5); Mean Corpuscular Volume 74 fL (80-100); Mean Platelet Volume 9.8 fL (9.1-12.4); NEUTROPHILS ABSOLUTE AUTO 13.24 K/mm3 (1.96-9.15); NEUTROPHILS PERCENT AUTO 75 % (41-73); Platelet Count 181 K/mm3 (150-400); RDW Coefficient Variation 22.6 % (11.7-14.2); RDW Standard Deviation 59.5 fL (35.1-46.3); Red Blood Cell Count 4.06 M/mm3 (3.80-5.20); White Blood Cell Count 17.64 K/mm3 (4.00-11.30)
[2018-05-14 04:07] LABS: Alanine Aminotransfer (ALT/SGP 15 U/L (12-78); Albumin, Blood 2.6 g/dL (3.4-5.0); Albumin/Globulin Ratio 0.8 (0.8-1.8); Alk Phos 63 U/L (50-136); Anion Gap 6 mmol/L (6-16); Aspartate Aminotrans (AST/SGOT 16 U/L (12-37); Bilirubin, Total 0.8 mg/dL (0.1-1.0); Blood Urea Nitrogen 15 mg/dL (8-24); Bun/Creatinine Ratio 21.6 (12.0-20.0); CO2, Blood 37 mmol/L (21-32); Calcium, Blood 7.7 mg/dL (8.5-10.1); Chloride, Blood 101 mmol/L (98-108); Globulin, Blood 3.4 g/dL (2.2-4.0); Glomerular Filtration Rate >60 (60-); Glucose, Blood 136 mg/dL (70-99); Magnesium, Blood 1.7 mg/dL (1.6-2.4); Phosphorus, Blood 2.8 mg/dL (2.5-4.9); Potassium, Blood 2.8 mmol/L (3.5-5.5); Sodium, Blood 144 mmol/L (136-145)
[2018-05-14 05:13] LABS: PCO2 Arterial 51.1 mmHg (35-45); PO2 Arterial 89.5 mmHg (80-100); pH Blood Arterial 7.49 (7.35-7.45)
[2018-05-14] MEDS ORDERED: METO50 PO (11:25)
[2018-05-14] MEDS ORDERED: Robaxin750 MG PO (11:32)
[2018-05-14] MEDS ORDERED: SPIR50 PO (11:37)
[2018-05-14] MEDS ORDERED: Potassium Chlo20 ME1 PO (11:39)
[2018-05-14] MEDS ORDERED: Esgic Tablet1 EACH PO (12:18)
[2018-05-14 21:18] LABS: Vancomycin, Trough 11.6 ug/mL (5.0-10.0)
[2018-05-15 04:35] LABS: BASOPHILS ABSOLUTE AUTO 0.07 K/mm3 (0.00-0.23); BASOPHILS PERCENT AUTO 1 % (0-2); EOSINOPHILS ABSOLUTE AUTO 0.18 K/mm3 (0.00-0.68); EOSINOPHILS PERCENT AUTO 2 % (0-6); Hematocrit 26.8 % (33.0-51.0); Hemoglobin 7.8 g/dL (11.5-16.0); IMMATURE GRAN ABSOLUTE AUTO 0.06 K/mm3 (0.00-0.10); IMMATURE GRAN PERCENT AUTO 1 % (0-1); LYMPHOCYTES ABSOLUTE AUTO 2.39 K/mm3 (0.84-5.20); LYMPHOCYTES PERCENT AUTO 22 % (21-46); MONOCYTES ABSOLUTE AUTO 0.85 K/mm3 (0.16-1.47); MONOCYTES PERCENT AUTO 8 % (4-13); Mean Corpuscular HGB 21.9 pg (26.0-34.0); Mean Corpuscular HGB Conc 29.1 g/dL (31.5-36.5); Mean Corpuscular Volume 75 fL (80-100); NEUTROPHILS ABSOLUTE AUTO 7.56 K/mm3 (1.96-9.15); NEUTROPHILS PERCENT AUTO 68 % (41-73); Platelet Count 135 K/mm3 (150-400); RDW Coefficient Variation 22.5 % (11.7-14.2); RDW Standard Deviation 60.4 fL (35.1-46.3); Red Blood Cell Count 3.56 M/mm3 (3.80-5.20); White Blood Cell Count 11.11 K/mm3 (4.00-11.30)
[2018-05-15 04:37] LABS: Mean Platelet Volume 10.7 fL (9.1-12.4)
[2018-05-15 04:49] LABS: Anion Gap 6 mmol/L (6-16); Blood Urea Nitrogen 13 mg/dL (8-24); Bun/Creatinine Ratio 17.7 (12.0-20.0); CO2, Blood 36 mmol/L (21-32); Calcium, Blood 7.9 mg/dL (8.5-10.1); Chloride, Blood 100 mmol/L (98-108); Creatinine, Blood 0.74 mg/dL (0.40-1.00); Glomerular Filtration Rate >60 (60-); Glucose, Blood 96 mg/dL (70-99); Potassium, Blood 3.1 mmol/L (3.5-5.5); Sodium, Blood 142 mmol/L (136-145)
[2018-05-15 10:38] LABS: Hematocrit 29.2 % (33.0-51.0); Hemoglobin 8.4 g/dL (11.5-16.0)
[2018-05-15 10:49] LABS: Percent Saturation 5.8 % (15.0-50.0)
[2018-05-15 15:34] LABS: Hematocrit 27.4 % (33.0-51.0)
[2018-05-15 21:30] LABS: Hematocrit 26.7 % (33.0-51.0); Hemoglobin 7.7 g/dL (11.5-16.0)
[2018-05-16 05:32] LABS: BASOPHILS ABSOLUTE AUTO 0.07 K/mm3 (0.00-0.23); BASOPHILS PERCENT AUTO 1 % (0-2); EOSINOPHILS PERCENT AUTO 2 % (0-6); Hematocrit 27.2 % (33.0-51.0); Hemoglobin 7.8 g/dL (11.5-16.0); IMMATURE GRAN ABSOLUTE AUTO 0.04 K/mm3 (0.00-0.10); IMMATURE GRAN PERCENT AUTO 1 % (0-1); LYMPHOCYTES ABSOLUTE AUTO 2.53 K/mm3 (0.84-5.20); LYMPHOCYTES PERCENT AUTO 29 % (21-46); MONOCYTES ABSOLUTE AUTO 0.58 K/mm3 (0.16-1.47); MONOCYTES PERCENT AUTO 7 % (4-13); Mean Corpuscular HGB 21.5 pg (26.0-34.0); Mean Corpuscular HGB Conc 28.7 g/dL (31.5-36.5); Mean Corpuscular Volume 75 fL (80-100); NEUTROPHILS ABSOLUTE AUTO 5.41 K/mm3 (1.96-9.15); NEUTROPHILS PERCENT AUTO 61 % (41-73); Platelet Count 139 K/mm3 (150-400); RDW Coefficient Variation 22.8 % (11.7-14.2); RDW Standard Deviation 61.2 fL (35.1-46.3); Red Blood Cell Count 3.62 M/mm3 (3.80-5.20); White Blood Cell Count 8.83 K/mm3 (4.00-11.30)
[2018-05-16 05:50] LABS: Alanine Aminotransfer (ALT/SGP 17 U/L (12-78); Albumin, Blood 2.4 g/dL (3.4-5.0); Albumin/Globulin Ratio 0.7 (0.8-1.8); Alk Phos 56 U/L (50-136); Anion Gap 3 mmol/L (6-16); Aspartate Aminotrans (AST/SGOT 15 U/L (12-37); Bilirubin, Total 0.5 mg/dL (0.1-1.0); Blood Urea Nitrogen 16 mg/dL (8-24); Bun/Creatinine Ratio 19.4 (12.0-20.0); CO2, Blood 36 mmol/L (21-32); Chloride, Blood 102 mmol/L (98-108); Creatinine, Blood 0.82 mg/dL (0.40-1.00); Globulin, Blood 3.3 g/dL (2.2-4.0); Glomerular Filtration Rate >60 (60-); Glucose, Blood 96 mg/dL (70-99); Potassium, Blood 3.6 mmol/L (3.5-5.5); Sodium, Blood 141 mmol/L (136-145); Total Protein, Blood 5.7 g/dL (6.4-8.2)
[2018-05-16 21:47] LABS: Vancomycin, Trough 18.2 ug/mL (5.0-10.0)
[2018-05-17 06:34] LABS: Anion Gap 4 mmol/L (6-16); Blood Urea Nitrogen 13 mg/dL (8-24); CO2, Blood 33 mmol/L (21-32); Chloride, Blood 103 mmol/L (98-108); Creatinine, Blood 0.77 mg/dL (0.40-1.00); Glomerular Filtration Rate >60 (60-); Glucose, Blood 93 mg/dL (70-99); Potassium, Blood 3.6 mmol/L (3.5-5.5); Sodium, Blood 140 mmol/L (136-145)
[2018-05-17 12:13] LABS: BASOPHILS ABSOLUTE AUTO 0.06 K/mm3 (0.00-0.23); BASOPHILS PERCENT AUTO 1 % (0-2); EOSINOPHILS ABSOLUTE AUTO 0.18 K/mm3 (0.00-0.68); EOSINOPHILS PERCENT AUTO 2 % (0-6); Hematocrit 27.5 % (33.0-51.0); IMMATURE GRAN ABSOLUTE AUTO 0.06 K/mm3 (0.00-0.10); IMMATURE GRAN PERCENT AUTO 1 % (0-1); LYMPHOCYTES ABSOLUTE AUTO 2.03 K/mm3 (0.84-5.20); LYMPHOCYTES PERCENT AUTO 21 % (21-46); MONOCYTES ABSOLUTE AUTO 0.69 K/mm3 (0.16-1.47); MONOCYTES PERCENT AUTO 7 % (4-13); Mean Corpuscular HGB 22.3 pg (26.0-34.0); Mean Corpuscular HGB Conc 29.1 g/dL (31.5-36.5); Mean Corpuscular Volume 77 fL (80-100); NEUTROPHILS ABSOLUTE AUTO 6.73 K/mm3 (1.96-9.15); NEUTROPHILS PERCENT AUTO 69 % (41-73); Platelet Count 145 K/mm3 (150-400); RDW Coefficient Variation 23.3 % (11.7-14.2); RDW Standard Deviation 63.3 fL (35.1-46.3); Red Blood Cell Count 3.59 M/mm3 (3.80-5.20); White Blood Cell Count 9.75 K/mm3 (4.00-11.30)
[2018-05-18 07:13] LABS: Alanine Aminotransfer (ALT/SGP 18 U/L (12-78); Albumin, Blood 2.4 g/dL (3.4-5.0); Albumin/Globulin Ratio 0.8 (0.8-1.8); Alk Phos 61 U/L (50-136); Anion Gap 4 mmol/L (6-16); Aspartate Aminotrans (AST/SGOT 11 U/L (12-37); Bilirubin, Total 0.3 mg/dL (0.1-1.0); Blood Urea Nitrogen 13 mg/dL (8-24); Bun/Creatinine Ratio 13.2 (12.0-20.0); CO2, Blood 31 mmol/L (21-32); Chloride, Blood 105 mmol/L (98-108); Creatinine, Blood 0.98 mg/dL (0.40-1.00); Globulin, Blood 3.2 g/dL (2.2-4.0); Glomerular Filtration Rate >60 (60-); Glucose, Blood 90 mg/dL (70-99); Potassium, Blood 4.1 mmol/L (3.5-5.5); Sodium, Blood 140 mmol/L (136-145); Total Protein, Blood 5.6 g/dL (6.4-8.2)
[2018-05-18 07:16] LABS: BASOPHILS ABSOLUTE AUTO 0.04 K/mm3 (0.00-0.23); BASOPHILS PERCENT AUTO 0 % (0-2); EOSINOPHILS ABSOLUTE AUTO 0.17 K/mm3 (0.00-0.68); EOSINOPHILS PERCENT AUTO 2 % (0-6); Hematocrit 25.7 % (33.0-51.0); Hemoglobin 7.6 g/dL (11.5-16.0); IMMATURE GRAN ABSOLUTE AUTO 0.05 K/mm3 (0.00-0.10); IMMATURE GRAN PERCENT AUTO 1 % (0-1); LYMPHOCYTES ABSOLUTE AUTO 2.38 K/mm3 (0.84-5.20); LYMPHOCYTES PERCENT AUTO 22 % (21-46); MONOCYTES ABSOLUTE AUTO 0.74 K/mm3 (0.16-1.47); MONOCYTES PERCENT AUTO 7 % (4-13); Mean Corpuscular HGB 22.4 pg (26.0-34.0); Mean Corpuscular HGB Conc 29.6 g/dL (31.5-36.5); Mean Corpuscular Volume 76 fL (80-100); NEUTROPHILS ABSOLUTE AUTO 7.38 K/mm3 (1.96-9.15); NEUTROPHILS PERCENT AUTO 69 % (41-73); NRBC ABSOLUTE 0.02 K/mm3 (0.00-0.02); NRBC Auto 0.2 /100 WBC (0.0-0.2); Platelet Count 144 K/mm3 (150-400); RDW Coefficient Variation 23.9 % (11.7-14.2); Red Blood Cell Count 3.39 M/mm3 (3.80-5.20); White Blood Cell Count 10.76 K/mm3 (4.00-11.30)
[2018-05-19 05:42] LABS: Hematocrit 27.7 % (33.0-51.0); Hemoglobin 7.9 g/dL (11.5-16.0)
[2018-05-19 06:03] LABS: Anion Gap 7 mmol/L (6-16); Blood Urea Nitrogen 11 mg/dL (8-24); Bun/Creatinine Ratio 12.3 (12.0-20.0); CO2, Blood 28 mmol/L (21-32); Calcium, Blood 8.5 mg/dL (8.5-10.1); Chloride, Blood 103 mmol/L (98-108); Creatinine, Blood 0.89 mg/dL (0.40-1.00); Glomerular Filtration Rate >60 (60-); Glucose, Blood 102 mg/dL (70-99); Potassium, Blood 4.4 mmol/L (3.5-5.5); Sodium, Blood 138 mmol/L (136-145)
[2018-05-19] MEDS ORDERED: BENZ100A PO (11:37)
[2018-05-19] MEDS ORDERED: DEXT30SU PO (11:40)
[2018-05-19] MEDS ORDERED: DOCU100 PO (11:41)
[2018-05-19] MEDS ORDERED: BUDESONIDE1 MG/2 ML INH (11:41)
[2018-05-19] MEDS ORDERED: Mucinex600 MG PO (11:42)
[2018-05-19] MEDS ORDERED: Ferrous Sulfat325 MG PO (11:43)
[2018-05-19] MEDS ORDERED: PANT40 PO (11:44)
[2018-05-19 13:16] LABS: PCO2 Arterial 69.3 mmHg (35-45); PO2 Arterial 189 mmHg (80-100)
[2018-05-19 14:11] LABS: U Amphetamine Screen Not Detected; U Barbituate Screen DETECTED; U Benzodiazapine Screen DETECTED; U Buprenorphine Screen Not Detected; U Cannabinoids Screen DETECTED; U Cocaine Screen Not Detected; U Methadone Screen Not Detected; U Methamphetamine Screen Not Detected; U Opiates Screen Not Detected; U Oxycodone Screen DETECTED; U Phencyclidine Screen Not Detected; U Propoxyphene Screen Not Detected
[2018-05-19 15:17] LABS: Hematocrit 35.3 % (33.0-51.0); Hemoglobin 9.9 g/dL (11.5-16.0)
[2018-05-19 15:31] LABS: CPK Creatine Kinase 37 U/L (26-193); Troponin I <0.015 ng/mL (0.000-0.040)
[2018-05-19 15:43] LABS: Creatine Kinase MB < 1.0 ng/mL (0.0-3.6); Creatine Kinase MB Index 2.7 (0.0-4.0)
[2018-05-19 18:08] LABS: Source, Urine Catheter
[2018-05-19 18:13] LABS: Appearance, Urine Hazy (Clear); Bilirubin, Urine Neg (Neg); Blood, Urine 5+ (Neg); Color, Urine Yellow (P-Yellow); Glucose Qualitative, Urine Neg (Neg); Ketones, Urine Neg (Neg); Leukocyte Esterase, Urine 3+ (Neg); Nitrite, Urine Neg (Neg); Protein, Urine Neg (Neg); Urobilinogen, Urine NORM (Normal)
[2018-05-19 18:30] LABS: Red Blood Cells, Urine 50-100 /hpf (0-2); White Blood Cells, Urine 25-50 /hpf (0-5)
[2018-05-19 18:31] LABS: Bacteria Many /hpf; Squamous Epithelial Cells Rare /hpf (Few)
[2018-05-20 04:03] LABS: BASOPHILS ABSOLUTE AUTO 0.07 K/mm3 (0.00-0.23); BASOPHILS PERCENT AUTO 1 % (0-2); EOSINOPHILS PERCENT AUTO 1 % (0-6); Hematocrit 30.4 % (33.0-51.0); Hemoglobin 8.9 g/dL (11.5-16.0); IMMATURE GRAN ABSOLUTE AUTO 0.07 K/mm3 (0.00-0.10); IMMATURE GRAN PERCENT AUTO 1 % (0-1); LYMPHOCYTES ABSOLUTE AUTO 2.26 K/mm3 (0.84-5.20); LYMPHOCYTES PERCENT AUTO 15 % (21-46); MONOCYTES ABSOLUTE AUTO 1.02 K/mm3 (0.16-1.47); MONOCYTES PERCENT AUTO 7 % (4-13); Mean Corpuscular HGB 22.6 pg (26.0-34.0); Mean Corpuscular HGB Conc 29.3 g/dL (31.5-36.5); Mean Corpuscular Volume 77 fL (80-100); NEUTROPHILS ABSOLUTE AUTO 11.88 K/mm3 (1.96-9.15); NEUTROPHILS PERCENT AUTO 77 % (41-73); Platelet Count 169 K/mm3 (150-400); RDW Coefficient Variation 24.9 % (11.7-14.2); RDW Standard Deviation 64.1 fL (35.1-46.3); Red Blood Cell Count 3.93 M/mm3 (3.80-5.20)
[2018-05-20 04:19] LABS: PCO2 Arterial 41.1 mmHg (35-45); PO2 Arterial 55.3 mmHg (80-100)
[2018-05-20 04:37] LABS: Anion Gap 8 mmol/L (6-16); Blood Urea Nitrogen 12 mg/dL (8-24); Bun/Creatinine Ratio 14.5 (12.0-20.0); CO2, Blood 31 mmol/L (21-32); Calcium, Blood 8.4 mg/dL (8.5-10.1); Chloride, Blood 103 mmol/L (98-108); Creatinine, Blood 0.83 mg/dL (0.40-1.00); Glomerular Filtration Rate >60 (60-); Glucose, Blood 89 mg/dL (70-99); Magnesium, Blood 1.6 mg/dL (1.6-2.4); Potassium, Blood 3.4 mmol/L (3.5-5.5); Sodium, Blood 142 mmol/L (136-145)
[2018-05-21 05:28] LABS: BASOPHILS ABSOLUTE AUTO 0.06 K/mm3 (0.00-0.23); BASOPHILS PERCENT AUTO 1 % (0-2); EOSINOPHILS ABSOLUTE AUTO 0.22 K/mm3 (0.00-0.68); EOSINOPHILS PERCENT AUTO 2 % (0-6); Hematocrit 30.9 % (33.0-51.0); IMMATURE GRAN ABSOLUTE AUTO 0.06 K/mm3 (0.00-0.10); IMMATURE GRAN PERCENT AUTO 1 % (0-1); LYMPHOCYTES ABSOLUTE AUTO 2.74 K/mm3 (0.84-5.20); LYMPHOCYTES PERCENT AUTO 24 % (21-46); MONOCYTES ABSOLUTE AUTO 1.04 K/mm3 (0.16-1.47); MONOCYTES PERCENT AUTO 9 % (4-13); Mean Corpuscular HGB 21.9 pg (26.0-34.0); Mean Corpuscular HGB Conc 29.1 g/dL (31.5-36.5); Mean Corpuscular Volume 75 fL (80-100); NEUTROPHILS ABSOLUTE AUTO 7.37 K/mm3 (1.96-9.15); NEUTROPHILS PERCENT AUTO 64 % (41-73); Platelet Count 183 K/mm3 (150-400); RDW Coefficient Variation 25.6 % (11.7-14.2); Red Blood Cell Count 4.11 M/mm3 (3.80-5.20); White Blood Cell Count 11.49 K/mm3 (4.00-11.30)
[2018-05-21 05:47] LABS: Albumin, Blood 2.4 g/dL (3.4-5.0); Anion Gap 5 mmol/L (6-16); Blood Urea Nitrogen 12 mg/dL (8-24); Bun/Creatinine Ratio 13.5 (12.0-20.0); CO2, Blood 32 mmol/L (21-32); Chloride, Blood 102 mmol/L (98-108); Creatinine, Blood 0.89 mg/dL (0.40-1.00); Glomerular Filtration Rate >60 (60-); Glucose, Blood 92 mg/dL (70-99); Magnesium, Blood 1.7 mg/dL (1.6-2.4); Potassium, Blood 3.4 mmol/L (3.5-5.5); Sodium, Blood 139 mmol/L (136-145)
[2018-05-22 05:43] LABS: BASOPHILS ABSOLUTE AUTO 0.05 K/mm3 (0.00-0.23); BASOPHILS PERCENT AUTO 1 % (0-2); EOSINOPHILS ABSOLUTE AUTO 0.19 K/mm3 (0.00-0.68); EOSINOPHILS PERCENT AUTO 2 % (0-6); Hematocrit 30.7 % (33.0-51.0); Hemoglobin 8.9 g/dL (11.5-16.0); IMMATURE GRAN ABSOLUTE AUTO 0.04 K/mm3 (0.00-0.10); IMMATURE GRAN PERCENT AUTO 1 % (0-1); LYMPHOCYTES ABSOLUTE AUTO 1.93 K/mm3 (0.84-5.20); LYMPHOCYTES PERCENT AUTO 23 % (21-46); MONOCYTES ABSOLUTE AUTO 0.78 K/mm3 (0.16-1.47); MONOCYTES PERCENT AUTO 9 % (4-13); Mean Corpuscular HGB 22.5 pg (26.0-34.0); NEUTROPHILS ABSOLUTE AUTO 5.59 K/mm3 (1.96-9.15); NEUTROPHILS PERCENT AUTO 65 % (41-73); Platelet Count 187 K/mm3 (150-400); RDW Coefficient Variation 25.7 % (11.7-14.2); RDW Standard Deviation 71.5 fL (35.1-46.3); Red Blood Cell Count 3.96 M/mm3 (3.80-5.20); White Blood Cell Count 8.58 K/mm3 (4.00-11.30)
[2018-05-22 05:52] LABS: Mean Corpuscular Volume 78 fL (80-100)
[2018-05-22 06:01] LABS: Anion Gap 5 mmol/L (6-16); Blood Urea Nitrogen 11 mg/dL (8-24); Bun/Creatinine Ratio 11.2 (12.0-20.0); CO2, Blood 30 mmol/L (21-32); Calcium, Blood 8.2 mg/dL (8.5-10.1); Chloride, Blood 103 mmol/L (98-108); Creatinine, Blood 0.98 mg/dL (0.40-1.00); Glomerular Filtration Rate >60 (60-); Glucose, Blood 98 mg/dL (70-99); Sodium, Blood 138 mmol/L (136-145)
[2018-05-22] MEDS ORDERED: LIDO700A20 TOP (11:31)
[2018-05-22] MEDS ORDERED: METO25ER PO (11:35)
[2018-05-22] MEDS ORDERED: TORSE20 PO (11:39)
[2018-05-22] MEDS ORDERED: XARELTO20 MG PO (11:47)
== END 2018-05-22 14:46 | disposition home or self-care (01) | DRG 291 ==
LOC: ICUE → ER 04:26 → MEDS 05:32 → ICUW 05:32 → EDBD 05:32 → ICUE 05:32 → PCU 05-14 16:00 → MEDS 05-16 15:59 → ENPENDDIS 05-19 08:24 → ICUE 05-19 13:02 → MEDS 05-20 11:04 → EDPENDDISDT 05-22 10:14 → EDPENDDISTM 05-22 10:14 → MEDS 05-22 14:46
PROVIDERS: Emergency Medicine; Internal Medicine; Internal Medicine Cardiovascular Disease; Internal Medicine Critical Care Medicine
DX: I13.0 Hypertensive heart and chronic kidney disease with heart failure and stage 1 through stage 4 chronic kidney disease, or unspecified chronic kidney disease (principal); J69.0 Pneumonitis due to inhalation of food and vomit; I50.23 Acute on chronic systolic (congestive) heart failure; G93.40 Encephalopathy, unspecified; J15.211 Pneumonia due to Methicillin susceptible Staphylococcus aureus; N17.9 Acute kidney failure, unspecified; N39.0 Urinary tract infection, site not specified; N18.9 Chronic kidney disease, unspecified; I25.5 Ischemic cardiomyopathy; J44.9 Chronic obstructive pulmonary disease, unspecified; I48.91 Unspecified atrial fibrillation; Z79.01 Long term (current) use of anticoagulants; G47.33 Obstructive sleep apnea (adult) (pediatric); M79.7 Fibromyalgia; M54.9 Dorsalgia, unspecified; B96.1 Klebsiella pneumoniae [K. pneumoniae] as the cause of diseases classified elsewhere; I48.0 Paroxysmal atrial fibrillation; I25.10 Atherosclerotic heart disease of native coronary artery without angina pectoris; E11.22 Type 2 diabetes mellitus with diabetic chronic kidney disease; F19.10 Other psychoactive substance abuse, uncomplicated; D50.9 Iron deficiency anemia, unspecified; F17.210 Nicotine dependence, cigarettes, uncomplicated; E78.5 Hyperlipidemia, unspecified
CPT/HCPCS: 31720; 36415; 36569; 36593; 36600; 51702; 70450; 71045; 74230; 80048; 80053; 80069; 80202; 81001; 82330; 82550; 82553; 82728; 82803; 82947; 83540; 83550; 83605; 83735; 83880; 84100; 84484; 85014; 85018; 85025; 85027; 85610; 86850; 86900; 86901; 87040; 87070; 87077; 87086; 87186; 87205; 92610; 92611; 93005; 93010; 93306; 93975; 94002; 94003; 94640; 94660; 94760; 94762; 97110; 97116; 97162; 97530; 99291-25; 99292; C1751; C9113; G0480; G8978; G8979; G8996; G8997; G8998; J1650; J1815; J1940; J2060; J2405; J2765; J2916; J2997; J3010; J3370; J3475; J3480; J7030; J7060; J7626

== ENCOUNTER 2018-06-04 13:50 | Inpatient (IN) | payer MEDICARE, OTHER ==
[~2018-06-04] VITALS: Ht 160 cm; Wt 77.7 kg
[~2018-06-04 13:50] MED LIST changes: +BENZ100A PO; +BUDESONIDE1 MG/2 ML INH; +DEXT30SU PO; +DOCU100 PO; +Ferrous Sulfat325 MG PO; +LIDO700A20 TOP; +METO50ER PO; +Mucinex600 MG PO; +Potassium Chlo20 ME1 PO; +RANI150EL PO; +Robaxin750 MG PO; +TORSE20 PO
[2018-06-04 14:23] LABS: PCO2 Arterial 62.4 mmHg (35-45); PO2 Arterial 70.6 mmHg (80-100); pH Blood Arterial 7.21 (7.35-7.45)
[2018-06-04 15:15] LABS: Source, Urine Catheter
[2018-06-04 15:21] LABS: Appearance, Urine Clear (Clear); Bilirubin, Urine Neg (Neg); Blood, Urine 2+ (Neg); Color, Urine Yellow (P-Yellow); Glucose Qualitative, Urine Neg (Neg); Ketones, Urine Neg (Neg); Leukocyte Esterase, Urine 1+ (Neg); Nitrite, Urine Neg (Neg); Protein, Urine 2+ (Neg); Urobilinogen, Urine NORM (Normal)
[2018-06-04 15:22] LABS: BASOPHILS ABSOLUTE AUTO 0.05 K/mm3 (0.00-0.23); BASOPHILS PERCENT AUTO 0 % (0-2); EOSINOPHILS ABSOLUTE AUTO 0.03 K/mm3 (0.00-0.68); EOSINOPHILS PERCENT AUTO 0 % (0-6); Hematocrit 31.7 % (33.0-51.0); Hemoglobin 8.7 g/dL (11.5-16.0); IMMATURE GRAN ABSOLUTE AUTO 0.55 K/mm3 (0.00-0.10); IMMATURE GRAN PERCENT AUTO 3 % (0-1); LYMPHOCYTES ABSOLUTE AUTO 1.67 K/mm3 (0.84-5.20); LYMPHOCYTES PERCENT AUTO 9 % (21-46); MONOCYTES ABSOLUTE AUTO 0.88 K/mm3 (0.16-1.47); MONOCYTES PERCENT AUTO 5 % (4-13); Mean Corpuscular HGB 22.3 pg (26.0-34.0); Mean Corpuscular HGB Conc 27.4 g/dL (31.5-36.5); NEUTROPHILS ABSOLUTE AUTO 15.28 K/mm3 (1.96-9.15); NEUTROPHILS PERCENT AUTO 83 % (41-73); NRBC ABSOLUTE 0.16 K/mm3 (0.00-0.02); NRBC Auto 0.9 /100 WBC (0.0-0.2); Platelet Count 195 K/mm3 (150-400); RDW Coefficient Variation 25.1 % (11.7-14.2); RDW Standard Deviation 73.1 fL (35.1-46.3); Red Blood Cell Count 3.91 M/mm3 (3.80-5.20); White Blood Cell Count 18.46 K/mm3 (4.00-11.30)
[2018-06-04 15:37] LABS: Mean Corpuscular Volume 81 fL (80-100); Mean Platelet Volume 10.9 fL (9.1-12.4)
[2018-06-04 15:46] LABS: Alanine Aminotransfer (ALT/SGP 190 U/L (12-78); Albumin, Blood 2.8 g/dL (3.4-5.0); Albumin/Globulin Ratio 0.6 (0.8-1.8); Alk Phos 132 U/L (50-136); Anion Gap 8 mmol/L (6-16); Aspartate Aminotrans (AST/SGOT 34 U/L (12-37); Bilirubin, Total 0.4 mg/dL (0.1-1.0); Blood Urea Nitrogen 27 mg/dL (8-24); Bun/Creatinine Ratio 18.1 (12.0-20.0); CO2, Blood 24 mmol/L (21-32); Calcium, Blood 8.6 mg/dL (8.5-10.1); Chloride, Blood 98 mmol/L (98-108); Creatinine, Blood 1.49 mg/dL (0.40-1.00); Globulin, Blood 4.5 g/dL (2.2-4.0); Glomerular Filtration Rate 39 (60-); Glucose, Blood 105 mg/dL (70-99); Magnesium, Blood 1.7 mg/dL (1.6-2.4); Sodium, Blood 130 mmol/L (136-145); Total Protein, Blood 7.3 g/dL (6.4-8.2); Troponin I <0.015 ng/mL (0.000-0.040)
[2018-06-04 15:48] LABS: Bacteria Many /hpf; Squamous Epithelial Cells Few /hpf (Few); Transitional Epithelial Cells Few /hpf (0-Rare)
[2018-06-04 16:34] LABS: PO2 Arterial 96.5 mmHg (80-100); pH Blood Arterial 7.21 (7.35-7.45)
[2018-06-04 20:16] LABS: PCO2 Arterial 56.9 mmHg (35-45); PO2 Arterial 75.1 mmHg (80-100)
[2018-06-04 20:17] LABS: pH Blood Arterial 7.27 (7.35-7.45)
[2018-06-04 23:15] LABS: U Amphetamine Screen Not Detected; U Barbituate Screen DETECTED; U Benzodiazapine Screen DETECTED; U Buprenorphine Screen Not Detected; U Cannabinoids Screen Not Detected; U Cocaine Screen Not Detected; U Methadone Screen Not Detected; U Methamphetamine Screen Not Detected; U Opiates Screen Not Detected; U Oxycodone Screen DETECTED; U Phencyclidine Screen Not Detected; U Propoxyphene Screen Not Detected
[2018-06-05 04:49] LABS: BASOPHILS ABSOLUTE AUTO 0.06 K/mm3 (0.00-0.23); BASOPHILS PERCENT AUTO 1 % (0-2); EOSINOPHILS ABSOLUTE AUTO 0.08 K/mm3 (0.00-0.68); EOSINOPHILS PERCENT AUTO 1 % (0-6); Hematocrit 28.8 % (33.0-51.0); Hemoglobin 8.2 g/dL (11.5-16.0); IMMATURE GRAN ABSOLUTE AUTO 0.12 K/mm3 (0.00-0.10); IMMATURE GRAN PERCENT AUTO 1 % (0-1); LYMPHOCYTES PERCENT AUTO 10 % (21-46); MONOCYTES ABSOLUTE AUTO 0.52 K/mm3 (0.16-1.47); MONOCYTES PERCENT AUTO 4 % (4-13); Mean Corpuscular HGB Conc 28.5 g/dL (31.5-36.5); NEUTROPHILS ABSOLUTE AUTO 9.78 K/mm3 (1.96-9.15); NEUTROPHILS PERCENT AUTO 83 % (41-73); NRBC ABSOLUTE 0.05 K/mm3 (0.00-0.02); NRBC Auto 0.4 /100 WBC (0.0-0.2); Platelet Count 170 K/mm3 (150-400); RDW Coefficient Variation 25.2 % (11.7-14.2); RDW Standard Deviation 70.3 fL (35.1-46.3); Red Blood Cell Count 3.72 M/mm3 (3.80-5.20); White Blood Cell Count 11.76 K/mm3 (4.00-11.30)
[2018-06-05 04:53] LABS: PCO2 Arterial 46.6 mmHg (35-45); PO2 Arterial 86.4 mmHg (80-100); pH Blood Arterial 7.41 (7.35-7.45)
[2018-06-05 04:54] LABS: Mean Corpuscular Volume 77 fL (80-100); Mean Platelet Volume 10.7 fL (9.1-12.4)
[2018-06-05 05:03] LABS: Anion Gap 8 mmol/L (6-16); Blood Urea Nitrogen 19 mg/dL (8-24); Bun/Creatinine Ratio 19.1 (12.0-20.0); CO2, Blood 29 mmol/L (21-32); Calcium, Blood 8.3 mg/dL (8.5-10.1); Chloride, Blood 102 mmol/L (98-108); Glomerular Filtration Rate >60 (60-); Glucose, Blood 96 mg/dL (70-99); Potassium, Blood 3.4 mmol/L (3.5-5.5); Sodium, Blood 139 mmol/L (136-145)
[2018-06-06 04:39] LABS: BASOPHILS ABSOLUTE AUTO 0.05 K/mm3 (0.00-0.23); BASOPHILS PERCENT AUTO 1 % (0-2); EOSINOPHILS ABSOLUTE AUTO 0.09 K/mm3 (0.00-0.68); EOSINOPHILS PERCENT AUTO 1 % (0-6); Hematocrit 26.8 % (33.0-51.0); Hemoglobin 7.8 g/dL (11.5-16.0); IMMATURE GRAN ABSOLUTE AUTO 0.05 K/mm3 (0.00-0.10); IMMATURE GRAN PERCENT AUTO 1 % (0-1); LYMPHOCYTES ABSOLUTE AUTO 1.76 K/mm3 (0.84-5.20); LYMPHOCYTES PERCENT AUTO 17 % (21-46); MONOCYTES ABSOLUTE AUTO 0.66 K/mm3 (0.16-1.47); MONOCYTES PERCENT AUTO 6 % (4-13); Mean Corpuscular HGB 22.2 pg (26.0-34.0); Mean Corpuscular HGB Conc 29.1 g/dL (31.5-36.5); Mean Corpuscular Volume 76 fL (80-100); NEUTROPHILS ABSOLUTE AUTO 7.68 K/mm3 (1.96-9.15); NEUTROPHILS PERCENT AUTO 75 % (41-73); NRBC ABSOLUTE 0.02 K/mm3 (0.00-0.02); NRBC Auto 0.2 /100 WBC (0.0-0.2); Platelet Count 153 K/mm3 (150-400); RDW Coefficient Variation 25.1 % (11.7-14.2); RDW Standard Deviation 68.7 fL (35.1-46.3); Red Blood Cell Count 3.51 M/mm3 (3.80-5.20); White Blood Cell Count 10.29 K/mm3 (4.00-11.30)
[2018-06-06 04:41] LABS: Mean Platelet Volume 10.1 fL (9.1-12.4)
[2018-06-06 04:56] LABS: Anion Gap 7 mmol/L (6-16); Blood Urea Nitrogen 8 mg/dL (8-24); Bun/Creatinine Ratio 10.9 (12.0-20.0); CO2, Blood 33 mmol/L (21-32); Calcium, Blood 7.5 mg/dL (8.5-10.1); Chloride, Blood 102 mmol/L (98-108); Creatinine, Blood 0.74 mg/dL (0.40-1.00); Glomerular Filtration Rate >60 (60-); Glucose, Blood 94 mg/dL (70-99); Potassium, Blood 2.6 mmol/L (3.5-5.5); Sodium, Blood 142 mmol/L (136-145)
[2018-06-06 04:57] LABS: Vancomycin, Trough 18.4 ug/mL (5.0-10.0)
[2018-06-06 05:47] LABS: PCO2 Arterial 44.3 mmHg (35-45); PO2 Arterial 78.9 mmHg (80-100); pH Blood Arterial 7.51 (7.35-7.45)
[2018-06-07 05:45] LABS: Hematocrit 29.6 % (33.0-51.0); Hemoglobin 8.6 g/dL (11.5-16.0); Mean Corpuscular HGB 22.4 pg (26.0-34.0); Mean Corpuscular HGB Conc 29.1 g/dL (31.5-36.5); Mean Corpuscular Volume 77 fL (80-100); Platelet Count 176 K/mm3 (150-400); RDW Coefficient Variation 25.2 % (11.7-14.2); RDW Standard Deviation 70.3 fL (35.1-46.3); Red Blood Cell Count 3.84 M/mm3 (3.80-5.20); White Blood Cell Count 10.06 K/mm3 (4.00-11.30)
[2018-06-07 05:59] LABS: Albumin, Blood 2.3 g/dL (3.4-5.0); Anion Gap 8 mmol/L (6-16); Blood Urea Nitrogen 8 mg/dL (8-24); Bun/Creatinine Ratio 11.6 (12.0-20.0); CO2, Blood 29 mmol/L (21-32); Calcium, Blood 7.7 mg/dL (8.5-10.1); Chloride, Blood 104 mmol/L (98-108); Creatinine, Blood 0.69 mg/dL (0.40-1.00); Glomerular Filtration Rate >60 (60-); Glucose, Blood 101 mg/dL (70-99); Magnesium, Blood 1.3 mg/dL (1.6-2.4); Phosphorus, Blood 2.3 mg/dL (2.5-4.9); Potassium, Blood 3.2 mmol/L (3.5-5.5); Sodium, Blood 141 mmol/L (136-145)
[2018-06-09 05:39] LABS: Hematocrit 32.3 % (33.0-51.0); Hemoglobin 9.2 g/dL (11.5-16.0); Mean Corpuscular HGB 22.2 pg (26.0-34.0); Mean Corpuscular HGB Conc 28.5 g/dL (31.5-36.5); Mean Corpuscular Volume 78 fL (80-100); Platelet Count 190 K/mm3 (150-400); RDW Coefficient Variation 24.7 % (11.7-14.2); RDW Standard Deviation 69.6 fL (35.1-46.3); Red Blood Cell Count 4.15 M/mm3 (3.80-5.20); White Blood Cell Count 7.92 K/mm3 (4.00-11.30)
[2018-06-09 05:41] LABS: Mean Platelet Volume 10.5 fL (9.1-12.4)
[2018-06-09 05:50] LABS: Albumin, Blood 2.2 g/dL (3.4-5.0); Anion Gap 9 mmol/L (6-16); Blood Urea Nitrogen 11 mg/dL (8-24); Bun/Creatinine Ratio 16.7 (12.0-20.0); CO2, Blood 27 mmol/L (21-32); Calcium, Blood 8.1 mg/dL (8.5-10.1); Chloride, Blood 103 mmol/L (98-108); Creatinine, Blood 0.66 mg/dL (0.40-1.00); Glomerular Filtration Rate >60 (60-); Glucose, Blood 90 mg/dL (70-99); Magnesium, Blood 1.6 mg/dL (1.6-2.4); Phosphorus, Blood 4.2 mg/dL (2.5-4.9); Potassium, Blood 3.4 mmol/L (3.5-5.5); Sodium, Blood 139 mmol/L (136-145)
[2018-06-10 06:35] LABS: Hematocrit 30.2 % (33.0-51.0); Hemoglobin 8.6 g/dL (11.5-16.0); Mean Corpuscular HGB 22.3 pg (26.0-34.0); Mean Corpuscular HGB Conc 28.5 g/dL (31.5-36.5); Mean Corpuscular Volume 78 fL (80-100); Platelet Count 167 K/mm3 (150-400); RDW Coefficient Variation 24.5 % (11.7-14.2); RDW Standard Deviation 69.8 fL (35.1-46.3); Red Blood Cell Count 3.85 M/mm3 (3.80-5.20); White Blood Cell Count 7.42 K/mm3 (4.00-11.30)
[2018-06-10 06:54] LABS: Albumin, Blood 2.2 g/dL (3.4-5.0); Anion Gap 7 mmol/L (6-16); Blood Urea Nitrogen 15 mg/dL (8-24); Bun/Creatinine Ratio 20.1 (12.0-20.0); CO2, Blood 28 mmol/L (21-32); Calcium, Blood 7.8 mg/dL (8.5-10.1); Chloride, Blood 104 mmol/L (98-108); Creatinine, Blood 0.75 mg/dL (0.40-1.00); Glomerular Filtration Rate >60 (60-); Glucose, Blood 80 mg/dL (70-99); Magnesium, Blood 1.7 mg/dL (1.6-2.4); Phosphorus, Blood 4.2 mg/dL (2.5-4.9); Potassium, Blood 3.7 mmol/L (3.5-5.5); Sodium, Blood 139 mmol/L (136-145)
[2018-06-11 05:43] LABS: Hematocrit 29.5 % (33.0-51.0); Hemoglobin 8.3 g/dL (11.5-16.0); Mean Corpuscular HGB 21.9 pg (26.0-34.0); Mean Corpuscular HGB Conc 28.1 g/dL (31.5-36.5); Mean Corpuscular Volume 78 fL (80-100); Platelet Count 194 K/mm3 (150-400); RDW Coefficient Variation 24.4 % (11.7-14.2); RDW Standard Deviation 69.4 fL (35.1-46.3); Red Blood Cell Count 3.79 M/mm3 (3.80-5.20); White Blood Cell Count 6.73 K/mm3 (4.00-11.30)
[2018-06-11 05:47] LABS: Anion Gap 7 mmol/L (6-16); Blood Urea Nitrogen 11 mg/dL (8-24); CO2, Blood 28 mmol/L (21-32); Calcium, Blood 8.1 mg/dL (8.5-10.1); Chloride, Blood 106 mmol/L (98-108); Creatinine, Blood 0.79 mg/dL (0.40-1.00); Glomerular Filtration Rate >60 (60-); Glucose, Blood 80 mg/dL (70-99); Sodium, Blood 141 mmol/L (136-145)
[2018-06-12 06:51] LABS: Hematocrit 29.7 % (33.0-51.0); Hemoglobin 8.5 g/dL (11.5-16.0); Mean Corpuscular HGB 22.3 pg (26.0-34.0); Mean Corpuscular HGB Conc 28.6 g/dL (31.5-36.5); Mean Corpuscular Volume 78 fL (80-100); Platelet Count 187 K/mm3 (150-400); RDW Coefficient Variation 23.8 % (11.7-14.2); RDW Standard Deviation 67.7 fL (35.1-46.3); Red Blood Cell Count 3.81 M/mm3 (3.80-5.20); White Blood Cell Count 6.15 K/mm3 (4.00-11.30)
[2018-06-12 07:03] LABS: Albumin, Blood 2.5 g/dL (3.4-5.0); Anion Gap 6 mmol/L (6-16); Blood Urea Nitrogen 13 mg/dL (8-24); Bun/Creatinine Ratio 15.7 (12.0-20.0); CO2, Blood 26 mmol/L (21-32); Calcium, Blood 8.1 mg/dL (8.5-10.1); Chloride, Blood 106 mmol/L (98-108); Creatinine, Blood 0.83 mg/dL (0.40-1.00); Glomerular Filtration Rate >60 (60-); Glucose, Blood 75 mg/dL (70-99); Phosphorus, Blood 3.4 mg/dL (2.5-4.9); Potassium, Blood 4.3 mmol/L (3.5-5.5); Sodium, Blood 138 mmol/L (136-145)
[2018-06-12 07:09] LABS: Mean Platelet Volume 10.6 fL (9.1-12.4)
[2018-06-13 05:46] LABS: BASOPHILS ABSOLUTE AUTO 0.09 K/mm3 (0.00-0.23); BASOPHILS PERCENT AUTO 2 % (0-2); EOSINOPHILS ABSOLUTE AUTO 0.17 K/mm3 (0.00-0.68); EOSINOPHILS PERCENT AUTO 3 % (0-6); Hematocrit 31.2 % (33.0-51.0); IMMATURE GRAN ABSOLUTE AUTO 0.01 K/mm3 (0.00-0.10); IMMATURE GRAN PERCENT AUTO 0 % (0-1); LYMPHOCYTES ABSOLUTE AUTO 2.14 K/mm3 (0.84-5.20); LYMPHOCYTES PERCENT AUTO 36 % (21-46); MONOCYTES ABSOLUTE AUTO 0.45 K/mm3 (0.16-1.47); MONOCYTES PERCENT AUTO 8 % (4-13); Mean Corpuscular HGB 22.4 pg (26.0-34.0); Mean Corpuscular HGB Conc 28.8 g/dL (31.5-36.5); Mean Corpuscular Volume 78 fL (80-100); NEUTROPHILS ABSOLUTE AUTO 3.12 K/mm3 (1.96-9.15); NEUTROPHILS PERCENT AUTO 52 % (41-73); Platelet Count 193 K/mm3 (150-400); RDW Coefficient Variation 23.9 % (11.7-14.2); RDW Standard Deviation 66.8 fL (35.1-46.3); Red Blood Cell Count 4.01 M/mm3 (3.80-5.20); White Blood Cell Count 5.98 K/mm3 (4.00-11.30)
[2018-06-13 06:17] LABS: Anion Gap 7 mmol/L (6-16); Blood Urea Nitrogen 17 mg/dL (8-24); Bun/Creatinine Ratio 21.1 (12.0-20.0); C-REACTIVE PROTEIN, EXT RANGE 0.495 mg/dL (0.000-0.300); CO2, Blood 26 mmol/L (21-32); Calcium, Blood 8.2 mg/dL (8.5-10.1); Chloride, Blood 105 mmol/L (98-108); Creatinine, Blood 0.81 mg/dL (0.40-1.00); Glomerular Filtration Rate >60 (60-); Glucose, Blood 80 mg/dL (70-99); Potassium, Blood 4.4 mmol/L (3.5-5.5); Sodium, Blood 138 mmol/L (136-145)
[2018-06-14 05:10] LABS: BASOPHILS ABSOLUTE AUTO 0.07 K/mm3 (0.00-0.23); BASOPHILS PERCENT AUTO 1 % (0-2); EOSINOPHILS ABSOLUTE AUTO 0.17 K/mm3 (0.00-0.68); EOSINOPHILS PERCENT AUTO 3 % (0-6); Hematocrit 27.8 % (33.0-51.0); Hemoglobin 7.9 g/dL (11.5-16.0); IMMATURE GRAN ABSOLUTE AUTO 0.01 K/mm3 (0.00-0.10); IMMATURE GRAN PERCENT AUTO 0 % (0-1); LYMPHOCYTES ABSOLUTE AUTO 2.11 K/mm3 (0.84-5.20); LYMPHOCYTES PERCENT AUTO 36 % (21-46); MONOCYTES ABSOLUTE AUTO 0.43 K/mm3 (0.16-1.47); MONOCYTES PERCENT AUTO 7 % (4-13); Mean Corpuscular HGB 22.3 pg (26.0-34.0); Mean Corpuscular HGB Conc 28.4 g/dL (31.5-36.5); Mean Corpuscular Volume 78 fL (80-100); Mean Platelet Volume 10.3 fL (9.1-12.4); NEUTROPHILS ABSOLUTE AUTO 3.08 K/mm3 (1.96-9.15); NEUTROPHILS PERCENT AUTO 53 % (41-73); Platelet Count 180 K/mm3 (150-400); RDW Coefficient Variation 23.2 % (11.7-14.2); RDW Standard Deviation 66.2 fL (35.1-46.3); Red Blood Cell Count 3.55 M/mm3 (3.80-5.20); White Blood Cell Count 5.87 K/mm3 (4.00-11.30)
[2018-06-14] MEDS ORDERED: FURO40 PO (12:43)
[2018-06-14] MEDS ORDERED: Acetaminophen325 M1 PO (12:45)
[2018-06-14] MEDS ORDERED: [UNRECOGNIZED DRUG - OTHER] IV (12:45)
[2018-06-14] MEDS ORDERED: ASCO500 PO (12:46)
[2018-06-14] MEDS ORDERED: Ceftriaxone2 G1 IV (12:47)
[2018-06-14] MEDS ORDERED: Ferrous Sulfat325 MG PO (12:48)
[2018-06-14] MEDS ORDERED: BISA10S PR (12:48)
[2018-06-14] MEDS ORDERED: ACIDOPHILUS1 EAC1 PO (12:49)
[2018-06-14] MEDS ORDERED: DOCU100 PO (12:49)
[2018-06-14] MEDS ORDERED: ONDA4ODT MM (12:50)
[2018-06-14] MEDS ORDERED: ALBU3IS INH (12:50)
[2018-06-14] MEDS ORDERED: Sodium Chlorid250 M1 IV (12:51)
== END 2018-06-14 15:10 | DRG 871 ==
LOC: ER 13:50 → MEDS 16:12 → ICUW 16:12 → MEDS 06-07 16:28
PROVIDERS: Emergency Medicine; Family Medicine; Internal Medicine; Internal Medicine Critical Care Medicine
DX: A41.9 Sepsis, unspecified organism (principal); I50.43 Acute on chronic combined systolic (congestive) and diastolic (congestive) heart failure; J96.22 Acute and chronic respiratory failure with hypercapnia; J96.21 Acute and chronic respiratory failure with hypoxia; J69.0 Pneumonitis due to inhalation of food and vomit; G93.41 Metabolic encephalopathy; I13.0 Hypertensive heart and chronic kidney disease with heart failure and stage 1 through stage 4 chronic kidney disease, or unspecified chronic kidney disease; N17.9 Acute kidney failure, unspecified; I42.9 Cardiomyopathy, unspecified; R65.20 Severe sepsis without septic shock; N18.9 Chronic kidney disease, unspecified; E11.22 Type 2 diabetes mellitus with diabetic chronic kidney disease; D64.9 Anemia, unspecified; J44.9 Chronic obstructive pulmonary disease, unspecified; Z79.01 Long term (current) use of anticoagulants; G89.4 Chronic pain syndrome; F17.210 Nicotine dependence, cigarettes, uncomplicated; G47.33 Obstructive sleep apnea (adult) (pediatric); I48.0 Paroxysmal atrial fibrillation; Z91.19 Patient's noncompliance with other medical treatment and regimen; B96.1 Klebsiella pneumoniae [K. pneumoniae] as the cause of diseases classified elsewhere; I25.10 Atherosclerotic heart disease of native coronary artery without angina pectoris; E78.5 Hyperlipidemia, unspecified
CPT/HCPCS: 36415; 36416; 36600; 51702; 71045; 71046; 80048; 80053; 80069; 80202; 81001; 82803; 82947; 83036; 83605; 83735; 83880; 84100; 84132; 84484; 85025; 85027; 86140; 87040; 87070; 87077; 87086; 87147; 87186; 87205; 87493; 90686; 92610; 93005; 93010; 93306; 94640; 94660; 94760; 97110; 97116; 97162; 97166; 97530; 97535; 99285-25; G0008; G0480; G8978; G8979; G8980; G8987; G8988; G8996; G8997; G8998; J0290; J0696; J1940; J2405; J2543; J3370; J3475; J3480; J7050; J7060

== ENCOUNTER 2018-11-28 09:02 | Observation (INO) | payer MEDICARE, OTHER ==
[~2018-11-28] VITALS: Ht 167.6 cm; Wt 99.8 kg
[~2018-11-28 09:02] MED LIST changes: +ACIDOPHILUS1 EAC1 PO; +ALBU3IS INH; +ASCO500 PO; +Acetaminophen325 M1 PO; +BISA10S PR; +Ceftriaxone2 G1 IV; +Oxycodone HCl20 M1 PO; -Robaxin750 MG PO; +Sodium Chlorid250 M1 IV; +[UNRECOGNIZED DRUG - OTHER] IV
[2018-11-28 09:23] LABS: BASOPHILS ABSOLUTE AUTO 0.04 K/mm3 (0.00-0.23); BASOPHILS PERCENT AUTO 0 % (0-2); EOSINOPHILS ABSOLUTE AUTO 0.04 K/mm3 (0.00-0.68); EOSINOPHILS PERCENT AUTO 0 % (0-6); Hematocrit 49.4 % (33.0-51.0); Hemoglobin 15.2 g/dL (11.5-16.0); IMMATURE GRAN ABSOLUTE AUTO 0.06 K/mm3 (0.00-0.10); IMMATURE GRAN PERCENT AUTO 0 % (0-1); LYMPHOCYTES ABSOLUTE AUTO 2.02 K/mm3 (0.84-5.20); LYMPHOCYTES PERCENT AUTO 13 % (21-46); MONOCYTES ABSOLUTE AUTO 0.64 K/mm3 (0.16-1.47); MONOCYTES PERCENT AUTO 4 % (4-13); Mean Corpuscular HGB 29.5 pg (26.0-34.0); Mean Corpuscular HGB Conc 30.8 g/dL (31.5-36.5); Mean Corpuscular Volume 96 fL (80-100); Mean Platelet Volume 12.2 fL (9.1-12.4); NEUTROPHILS ABSOLUTE AUTO 12.92 K/mm3 (1.96-9.15); NEUTROPHILS PERCENT AUTO 82 % (41-73); Platelet Count 185 K/mm3 (150-400); RDW Coefficient Variation 16.6 % (11.7-14.2); RDW Standard Deviation 58.4 fL (35.1-46.3); Red Blood Cell Count 5.16 M/mm3 (3.80-5.20); White Blood Cell Count 15.72 K/mm3 (4.00-11.30)
[2018-11-28 09:56] LABS: Alanine Aminotransfer (ALT/SGP 26 U/L (12-78); Albumin, Blood 3.7 g/dL (3.4-5.0); Albumin/Globulin Ratio 0.9 (0.8-1.8); Alk Phos 101 U/L (50-136); Anion Gap 13 mmol/L (6-16); Aspartate Aminotrans (AST/SGOT 25 U/L (12-37); Bilirubin, Total 0.6 mg/dL (0.1-1.0); Blood Urea Nitrogen 14 mg/dL (8-24); Bun/Creatinine Ratio 26.7 (12.0-20.0); CO2, Blood 18 mmol/L (21-32); Calcium, Blood 8.7 mg/dL (8.5-10.1); Chloride, Blood 107 mmol/L (98-108); Creatinine, Blood 0.53 mg/dL (0.40-1.00); Globulin, Blood 4.1 g/dL (2.2-4.0); Glomerular Filtration Rate >60 (60-); Glucose, Blood 299 mg/dL (70-99); Potassium, Blood 3.9 mmol/L (3.5-5.5); Sodium, Blood 138 mmol/L (136-145); Total Protein, Blood 7.8 g/dL (6.4-8.2); Troponin I <0.015 ng/mL (0.000-0.040)
[2018-11-28 10:20] LABS: PCO2 Arterial 40.3 mmHg (35-45); PO2 Arterial 64.2 mmHg (80-100); pH Blood Arterial 7.34 (7.35-7.45)
[2018-11-28] MEDS ORDERED: OXYC30 PO (12:12)
[2018-11-28] MEDS ORDERED: BUME2 PO (12:19)
[2018-11-28] MEDS ORDERED: Humalog100 UNIT/3 SC (12:20)
[2018-11-28] MEDS ORDERED: NITR.4SL SL (12:22)
[2018-11-28] MEDS ORDERED: Alprazolam2 MG PO (13:09)
[2018-11-28] MEDS ORDERED: Robaxin750 MG PO (13:10)
[2018-11-28] MEDS ORDERED: Ranitidine HCl300 MG PO (13:11)
[2018-11-28] MEDS ORDERED: Xopenex Hfa15 GM INH (13:22)
--- NOTE | 2018-11-28 15:54 | NUR ---
ARRIVES FROM E.R. STAT BREATHING TREAMENT. RESPIRATIONS 30'S. SPEAKS IN ONE WORK SENTENCES. GIVEN ANTI NAUSEA, PAIN MEDS AND ANTI ANXIETY. IV PATENT. OXYGEN ON AT 3 LPM VIA N/C W/SATS HIGH 90'S. HYPERTENSIVE, GIVEN P.O. MED SCHEDULED. DR. KAUR AWARE OF ALL AND STS "PATIENT IS NEAR BASELINE." CALL LIGHT WITHIN REACH. WILL CONTINUE TO MONITOR.
--- NOTE | 2018-11-28 16:56 | NUR ---
STILL SPEAKS IN ONE WORK SENTENCES, BUT APPEARS MORE COMFORTABLE. WILL CONTINUETO MONITOR.
--- NOTE | 2018-11-28 17:30 | NUR ---
LEFT MESSAGE ON VOICE MAIL; DOES HE WANT PATIENT ON TELE AND DOES HE WANT HER ON DIABETIC DIET. AWAITING ORDERS.
--- NOTE | 2018-11-28 17:45 | NUR ---
NOTIFIES POUNCER MACHINE NO TO TELE.
--- NOTE | 2018-11-28 18:15 | NUR ---
called [facility] to fax over current med list.
[2018-11-29 06:15] LABS: Anion Gap 10 mmol/L (6-16); Blood Urea Nitrogen 16 mg/dL (8-24); Bun/Creatinine Ratio 21.7 (12.0-20.0); CO2, Blood 26 mmol/L (21-32); Chloride, Blood 103 mmol/L (98-108); Creatinine, Blood 0.74 mg/dL (0.40-1.00); Glomerular Filtration Rate >60 (60-); Glucose, Blood 150 mg/dL (70-99); Potassium, Blood 3.7 mmol/L (3.5-5.5); Sodium, Blood 139 mmol/L (136-145)
[2018-11-29 06:29] LABS: Hematocrit 49.5 % (33.0-51.0); Hemoglobin 15.8 g/dL (11.5-16.0); Mean Corpuscular HGB 29.2 pg (26.0-34.0); Mean Corpuscular HGB Conc 31.9 g/dL (31.5-36.5); NRBC ABSOLUTE 0.02 K/mm3 (0.00-0.02); NRBC Auto 0.1 /100 WBC (0.0-0.2); Platelet Count 165 K/mm3 (150-400); RDW Coefficient Variation 16.9 % (11.7-14.2); RDW Standard Deviation 56.2 fL (35.1-46.3); Red Blood Cell Count 5.41 M/mm3 (3.80-5.20); White Blood Cell Count 14.58 K/mm3 (4.00-11.30)
--- NOTE | 2018-11-29 06:29 | NUR ---
female PT with multiple medical problems who was recently evalulated for preop medical clearance for thoratic lumbar fusion and told she needs to have av/ node ablation and pacemaker placed prior to procedure due to cardiac risk hx of cardiac arrest several times and copd. PT uses benzodiapams xanax 2 mg po q 6 hours prn and oxycodone 30 mg po tid prn. both rx given x 2 with helpful effect. medicated with oral zofran 4 mg x 2 with helpful effect. up out of bed with 1 assist to bathroom. oxygen 3 l nc baseline smoker with home oxygen use. pt says she can use cpap but it is her fathers machine.
[2018-11-29 06:30] LABS: Mean Corpuscular Volume 92 fL (80-100)
--- NOTE | 2018-11-29 12:55 | NUR ---
REVIEW D'C INSTRUCTIONS. AWARE TO F/U CARDIAC REHAB 12/03 AND TO CALL IF CAN NOT MAKE IT. AWARE TO TALK TO HER CARDIAC SURGEON TO SEE WHEN RESCHEDULE FOR PACEMAKER AND THEN TO TALK TO CARDIAC MD TO SEE WHEN TO START AND STOP BLD THINNERS. ANSWER ALL QUESTIONS. AWARE CAN GO TO E.R. IF ANY PROBLEMS. WAITING FOR RIDE HOME.
== END 2018-11-29 13:10 | disposition home or self-care (01) ==
LOC: ER 09:02 → MEDS 09:03
PROVIDERS: Emergency Medicine; ADMIT Hospitalist
DX: I50.9 Heart failure, unspecified (principal); J96.01 Acute respiratory failure with hypoxia; J44.9 Chronic obstructive pulmonary disease, unspecified; F17.210 Nicotine dependence, cigarettes, uncomplicated; R11.2 Nausea with vomiting, unspecified; I10 Essential (primary) hypertension; I25.10 Atherosclerotic heart disease of native coronary artery without angina pectoris; F41.9 Anxiety disorder, unspecified; I11.9 Hypertensive heart disease without heart failure; G89.29 Other chronic pain; Z88.1 Allergy status to other antibiotic agents; Z88.0 Allergy status to penicillin; Z88.6 Allergy status to analgesic agent; Z88.8 Allergy status to other drugs, medicaments and biological substances
CPT/HCPCS: 36415; 36600; 71045; 80048; 80053; 82803; 82947; 83690; 83880; 84484; 85025; 85027; 93005; 93010; 94640; 94660; 94760; 96374; 96375; 96376; 99285-25; G0378; J0780; J1940; J2405; J2550; J2765; J2930

== ENCOUNTER 2018-12-18 13:18 | Day surgery (SDC) | payer MEDICARE, OTHER ==
[~2018-12-18 13:18] MED LIST changes: +Alprazolam2 MG PO; +Humalog100 UNIT/3 SC; +NITR.4SL SL; +Ranitidine HCl300 MG PO; +Robaxin750 MG PO
[2018-12-18 16:41] LABS: BASOPHILS ABSOLUTE AUTO 0.09 K/mm3 (0.00-0.23); BASOPHILS PERCENT AUTO 1 % (0-2); EOSINOPHILS ABSOLUTE AUTO 0.15 K/mm3 (0.00-0.68); EOSINOPHILS PERCENT AUTO 2 % (0-6); Hematocrit 42.4 % (33.0-51.0); Hemoglobin 13.1 g/dL (11.5-16.0); IMMATURE GRAN ABSOLUTE AUTO 0.02 K/mm3 (0.00-0.10); IMMATURE GRAN PERCENT AUTO 0 % (0-1); LYMPHOCYTES ABSOLUTE AUTO 2.36 K/mm3 (0.84-5.20); LYMPHOCYTES PERCENT AUTO 25 % (21-46); MONOCYTES ABSOLUTE AUTO 0.63 K/mm3 (0.16-1.47); MONOCYTES PERCENT AUTO 7 % (4-13); Mean Corpuscular HGB 29.4 pg (26.0-34.0); Mean Corpuscular HGB Conc 30.9 g/dL (31.5-36.5); Mean Corpuscular Volume 95 fL (80-100); NEUTROPHILS ABSOLUTE AUTO 6.03 K/mm3 (1.96-9.15); NEUTROPHILS PERCENT AUTO 65 % (41-73); Platelet Count 193 K/mm3 (150-400); RDW Coefficient Variation 15.2 % (11.7-14.2); RDW Standard Deviation 53.1 fL (35.1-46.3); Red Blood Cell Count 4.46 M/mm3 (3.80-5.20); White Blood Cell Count 9.28 K/mm3 (4.00-11.30)
[2018-12-18 16:56] LABS: International Normalized Ratio 1.08; Prothrombin Time Results 11.4 Sec (9.7-11.5)
[2018-12-18 17:05] LABS: Anion Gap 4 mmol/L (6-16); Blood Urea Nitrogen 21 mg/dL (8-24); CO2, Blood 31 mmol/L (21-32); Calcium, Blood 8.7 mg/dL (8.5-10.1); Chloride, Blood 104 mmol/L (98-108); Creatinine, Blood 0.96 mg/dL (0.40-1.00); Glomerular Filtration Rate >60 (60-); Glucose, Blood 137 mg/dL (70-99); Potassium, Blood 3.7 mmol/L (3.5-5.5); Sodium, Blood 139 mmol/L (136-145)
== END 2018-12-18 14:20 | disposition home or self-care (01) ==
LOC: ATC 13:18
PROVIDERS: Internal Medicine Clinical Cardiac Electrophysiology
DX: E87.79 Other fluid overload (principal); I11.0 Hypertensive heart disease with heart failure; I50.9 Heart failure, unspecified; E11.9 Type 2 diabetes mellitus without complications; I48.91 Unspecified atrial fibrillation; I25.2 Old myocardial infarction; F32.9 Major depressive disorder, single episode, unspecified; F41.9 Anxiety disorder, unspecified; K21.9 Gastro-esophageal reflux disease without esophagitis; J44.9 Chronic obstructive pulmonary disease, unspecified; E78.5 Hyperlipidemia, unspecified; E78.00 Pure hypercholesterolemia, unspecified; G47.33 Obstructive sleep apnea (adult) (pediatric); E66.9 Obesity, unspecified; F17.210 Nicotine dependence, cigarettes, uncomplicated; Z87.442 Personal history of urinary calculi; Z88.8 Allergy status to other drugs, medicaments and biological substances; Z88.2 Allergy status to sulfonamides; Z88.0 Allergy status to penicillin; Z88.1 Allergy status to other antibiotic agents; Z79.899 Other long term (current) drug therapy; Z79.02 Long term (current) use of antithrombotics/antiplatelets
CPT/HCPCS: 80048; 85025; 85610; 96374; J1940

== ENCOUNTER 2019-01-11 13:31 | Day surgery (SDC) | payer MEDICARE, OTHER | END 2019-01-11 23:30 | disposition home or self-care (01) | LOC: ATC 13:31 | DX: E87.79 Other fluid overload (principal); I10 Essential (primary) hypertension; J45.909 Unspecified asthma, uncomplicated; K21.9 Gastro-esophageal reflux disease without esophagitis; E78.00 Pure hypercholesterolemia, unspecified; I11.0 Hypertensive heart disease with heart failure; G47.33 Obstructive sleep apnea (adult) (pediatric); Z88.8 Allergy status to other drugs, medicaments and biological substances | CPT/HCPCS: 96374; J1940 ==

== ENCOUNTER 2019-03-08 00:12 | Day surgery (SDC) | payer MEDICARE, OTHER ==
--- NOTE | 2019-03-08 10:00 | NUR ---
PT CALLED TO CANCEL HER APPOINTMENT TODAY. OFFERED TO RESCHEDULE HER FOR LATER TODAY AND SHE DECLINED. SHE REPORTS THAT SHE JUST WOKE UP AND WANTS TO TAKE HER LASIX PO TODAY. ENCOURAGED HER TO CALL MEL RN TOMORROW TO MAKE AN APPOINTMENT IF SHE DECIDES SHE WANTS TO GET THE IV LASIX TOMORROW. CURRENT STANDING ORDER IN PT'S CHART FOR HER TO RECEIVE IV LASIX 2-3 TIMES A WEEK.
== END 2019-03-08 23:11 | disposition home or self-care (01) ==
LOC: ATC 00:12
DX: E87.79 Other fluid overload (principal); I13.0 Hypertensive heart and chronic kidney disease with heart failure and stage 1 through stage 4 chronic kidney disease, or unspecified chronic kidney disease; I50.9 Heart failure, unspecified; N18.9 Chronic kidney disease, unspecified; E11.22 Type 2 diabetes mellitus with diabetic chronic kidney disease; I25.2 Old myocardial infarction; Z86.73 Personal history of transient ischemic attack (TIA), and cerebral infarction without residual deficits; I48.91 Unspecified atrial fibrillation; I25.10 Atherosclerotic heart disease of native coronary artery without angina pectoris; J44.9 Chronic obstructive pulmonary disease, unspecified; E11.43 Type 2 diabetes mellitus with diabetic autonomic (poly)neuropathy; K31.84 Gastroparesis; F41.8 Other specified anxiety disorders; E66.9 Obesity, unspecified; F17.200 Nicotine dependence, unspecified, uncomplicated; K21.9 Gastro-esophageal reflux disease without esophagitis; E78.5 Hyperlipidemia, unspecified; G47.33 Obstructive sleep apnea (adult) (pediatric); N39.46 Mixed incontinence; Z88.8 Allergy status to other drugs, medicaments and biological substances; Z79.899 Other long term (current) drug therapy; Z79.01 Long term (current) use of anticoagulants; Z79.891 Long term (current) use of opiate analgesic; Z79.4 Long term (current) use of insulin
CPT/HCPCS: J1940

== ENCOUNTER 2019-05-24 11:00 | Day surgery (SDC) | payer MEDICARE, OTHER ==
[2019-05-24] MEDS ORDERED: VARE1 PO (11:16)
== END 2019-05-24 11:41 | disposition home or self-care (01) ==
LOC: ATC 11:00
DX: E87.79 Other fluid overload (principal); E11.9 Type 2 diabetes mellitus without complications; I11.0 Hypertensive heart disease with heart failure; E78.00 Pure hypercholesterolemia, unspecified; I50.9 Heart failure, unspecified
CPT/HCPCS: 96374; J1940

== ENCOUNTER 2019-07-29 09:18 | Day surgery (SDC) | payer MEDICARE, OTHER ==
[~2019-07-29] VITALS: Ht 152.4 cm; Wt 79.5 kg
[~2019-07-29 09:18] MED LIST changes: +VARE1 PO
[2019-07-29] MEDS ORDERED: ELIQUIS5 MG PO (10:20)
[2019-07-29] MEDS ORDERED: Aldactone100 MG PO (10:20)
[2019-07-29] MEDS ORDERED: POTA10T PO (10:21)
[2019-07-29] MEDS ORDERED: NITR.4SL SL (10:22)
[2019-07-29] MEDS ORDERED: METO50 PO (10:22)
[2019-07-29] MEDS ORDERED: Robaxin-750750 MG PO (10:25)
[2019-07-29] MEDS ORDERED: PREG200 PO (10:26)
[2019-07-29] MEDS ORDERED: Humalog100 UNIT/1 SC (10:27)
[2019-07-29] MEDS ORDERED: Xopenex Hfa15 GM INH (10:27)
[2019-07-29] MEDS ORDERED: RANEXA500 MG PO (10:28)
[2019-07-29] MEDS ORDERED: Zofran8 MG PO (10:29)
[2019-07-29] MEDS ORDERED: Flonase 0.05% N16 GM (10:29)
[2019-07-29] MEDS ORDERED: Crestor20 MG PO (10:29)
[2019-07-29] MEDS ORDERED: SERT100 PO (10:30)
[2019-07-29] MEDS ORDERED: Ranitidine HCl300 M1 PO (10:31)
[2019-07-29] MEDS ORDERED: CLOP75 PO (10:31)
[2019-07-29] MEDS ORDERED: LACT PO (10:31)
[2019-07-29] MEDS ORDERED: METO5 PO (10:32)
--- NOTE | 2019-07-29 10:41 | NUR ---
[facility] ACCESSED BY JIMMIE AGUERO RN. 20GX3/4 INCH HU NEEDLE USED. RIGHT SIDE OF CHEST. FLUSHED WITH 10CC NS, PT TOLERTATED WELL.
[2019-07-29] MEDS ORDERED: FURO80 PO (10:46)
--- NOTE | 2019-07-29 18:29 | NUR ---
PT HAS NOT BEEN FULLY AROUSABLE AND COHERENT SINCE I ENTERED ROOM ABOUT 1400. WAS ABLE TO GET UP TO THE BATHROOM WITH WALKER AND ASSIST OF 1 AROUND 1700. BACK INTO THE BED, R FEM SITE STABLE AT THAT TIME. SEE VS FLOW SHEET FOR VS. PT CONTINUES TO BE GROGGY. DR IN TO SEE PT SHORTLY AFTER PT BACK FROM BATHROOM AND SUGGESTS TO KEEP FOR ANOTHER HOUR AND THEN SEND HOME. WHEN TRYING TO GET PT DRESSED AROUND 1800 PT BECAME NAUSEATED AND THROWING UP. R FEM SITE WITH SMALL HEMATOMA, PRESSURE APPLIED AND AREA BECAME SOFT AGAIN. PT IS STILL DIFFICULT TO AROUSE. DR AWARE OF PT STATUS. PT RIDE IS PRESENT AND STATES HE WILL TAKE PT HOME AND TAKE CARE OF HER T/O THE NIGHT BECAUSE SHE WANTS TO GO HOME. AT THIS TIME UNABLE TO GO OVER DISCHARGE WITH PT BECAUSE OF HER SEDATED STATUS. THERE IS CONCERN OF SENDING PT HOME IN HER CURRENT CONDITION. SEDATION SCOR IS 8/10 AT THIS TIME.
--- NOTE | 2019-07-29 19:26 | NUR ---
PT UP TO BATHROOM AGAIN WITH FWW AND ASSIST OF 1. DR IN TO SEE PT, PT BECOMING NAUSEATED AGAIN AND VOMITED 200 ML'S EMESIS. PT R FEM SITE SOFT AND STABLE AT THIS TIME. BECAUSE OF PT SEDATION LEVEL, NAUSEA AND VOMITING, AND SMALL HEMATOMA AT FEM SITE WITH VOMITING PT WILL BE STAYING IN EXT RECOVERY T/O THE NIGHT.
--- NOTE | 2019-07-29 19:41 | NUR ---
ASSUMED CARE OF PT, REPORT FROM VINNIE BRIONES RN. PT AT THIS TIME LAYING AT 45 DEGREES SUPINE. MINIMAL RESPONSE TO VERBAL COMMAND. PT APPEARS DROWSY, SPEAKING IN SHORT WHISPERING 1-3 WORD SENTENCES. PLAN AT THIS TIME IS TO HAVE PT STAY OVER NIGHT FOR EXTENDED RECOVERY PER DR GARCIA. PT IS NOT ACTIVE WITH VOMITING AT THIS TIME. RIGHT GROIN SITE STABLE.
--- NOTE | 2019-07-29 20:22 | NUR ---
Assumed care: Pt transported from [facility] with [facility] RN at bedside to PCU 3. Report given from Laurie Lancaster RN to this RN at bedside. Pt transferred via slider sheet, difficult to arrouse at time of arrival, VSS, RA, opens eyes to pressure and answers only name and location correctly. Mumbling speech at time of arrival. Per RN report, pt has been nauseated. Pt in position, lying on right side. Pt with mediport that was accessed prior to arrival on PCU; s/l. (pt with severe allergy to heprin). Rgroin access site with hematoma present upon arrival, scan blood present on R groin dressing visualized with heart center RNs. Will continue to monitor and provide care per orders.
--- NOTE | 2019-07-29 21:13 | NUR ---
PROVIDER CALLED This RN notified provider at approx 2100 of pt's continued somnolence. Provider also notified by this RN of pt's inability to safely have PO medications at this time. Per provider, hold all PO medications this night. Orders reclieved for IV hydralazine if pt's SBP >[address] Pereyra. Will continue to monitor closely and provide care.
--- NOTE | 2019-07-29 22:59 | NUR ---
PT WITH CONTINUED LETHARGY; COMPLETELY SATURATED PANTS WITH URINE AND FECES. PT WITH FULL BODY WEAKNESS THROUGHOUT AND COMPLAINTS OF "SPLITTING HEADACHE" AND NAUESEA. MEDICATED FOR NAUSEA PER ORDERS. FULL NEURO ASSESSMENT COMPLETED AND CHANGES NOTED FROM INITIAL ASSESSMENT INCLUDE: SLUGGISH RIGHT PUPIL, DULLNESS NOTED ON LEFT SIDE PER PT, CONTINUED BLE WEAKNESS. DR GARCIA CALLED AND NOTIFIED OF FINDINGS; STAT CT OF HEAD ORDERED. AWAITING IMAGING AT THIS TIME. WILL CONTINUE TO MONITOR.
--- NOTE | 2019-07-30 03:32 | NUR ---
Pt with continued nausea and vomiting. VS continue to trend unstable with hypertension, tachycardia, tachypnea, low grade temp, and trending down on oxygen saturations. Lungs sounds becoming coarse which is change from initial assessment. Dr Pereyra called and notified of all above findings. Consult for Hospitalist recieved per Dr. Pereyra. Dr. Hickey of Hospitalist called and notified of consult. Stat chest xray, stat ABG, stat Chem 8 and CBC to be done per Dr. Hickey orders. Dr. Hickey to assess pt. Will continue to monitor.
[2019-07-30 03:33] LABS: PO2 Arterial 54.6 mmHg (80-100); pH Blood Arterial 7.55 (7.35-7.45)
[2019-07-30 03:46] LABS: BASOPHILS ABSOLUTE AUTO 0.03 K/mm3 (0.00-0.23); BASOPHILS PERCENT AUTO 0 % (0-2); EOSINOPHILS PERCENT AUTO 0 % (0-6); Hematocrit 47.9 % (33.0-51.0); Hemoglobin 15.5 g/dL (11.5-16.0); IMMATURE GRAN ABSOLUTE AUTO 0.05 K/mm3 (0.00-0.10); IMMATURE GRAN PERCENT AUTO 0 % (0-1); LYMPHOCYTES ABSOLUTE AUTO 1.14 K/mm3 (0.84-5.20); LYMPHOCYTES PERCENT AUTO 7 % (21-46); MONOCYTES ABSOLUTE AUTO 0.52 K/mm3 (0.16-1.47); MONOCYTES PERCENT AUTO 3 % (4-13); Mean Corpuscular HGB 27.6 pg (26.0-34.0); Mean Corpuscular HGB Conc 32.4 g/dL (31.5-36.5); Mean Corpuscular Volume 85 fL (80-100); Mean Platelet Volume 10.8 fL (9.1-12.4); NEUTROPHILS ABSOLUTE AUTO 13.61 K/mm3 (1.96-9.15); NEUTROPHILS PERCENT AUTO 89 % (41-73); Platelet Count 169 K/mm3 (150-400); RDW Coefficient Variation 14.6 % (11.7-14.2); RDW Standard Deviation 45.7 fL (35.1-46.3); Red Blood Cell Count 5.61 M/mm3 (3.80-5.20); White Blood Cell Count 15.35 K/mm3 (4.00-11.30)
[2019-07-30 04:06] LABS: Anion Gap 11 mmol/L (6-16); Blood Urea Nitrogen 16 mg/dL (8-24); Bun/Creatinine Ratio 18.7 (12.0-20.0); CO2, Blood 27 mmol/L (21-32); Calcium, Blood 9.5 mg/dL (8.5-10.1); Chloride, Blood 101 mmol/L (98-108); Creatinine, Blood 0.86 mg/dL (0.40-1.00); Glomerular Filtration Rate >60 (60-); Glucose, Blood 192 mg/dL (70-99); Potassium, Blood 2.8 mmol/L (3.5-5.5); Sodium, Blood 139 mmol/L (136-145)
--- NOTE | 2019-07-30 06:01 | NUR ---
Shift Summary No acute concerns this shift. 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 Pt denies pain this shift and states that R arm pain from day shift 07/29 has since resolved. No declines to note and no changes from initial shift assessment. Will continue to monitor.
--- NOTE | 2019-07-30 06:19 | NUR ---
CRITICAL VALUE lactic acid 3.0; Dr. Hickey notified. Orders recieved.
--- NOTE | 2019-07-30 07:47 | NUR ---
Shift Summary Pt initially to PCU from [facility] as extended recovery for R groin access of L renal artery stents. Upon arrival to PCU, pt somnolent and unable to respond to basic questions. Provider was called and notified of pt initial presentation and VS. Overtime, pt improves from solmnolence and difficulty to arouse to lethargy. Pt with continuous nausea and vomiting thorughout shift. Pt complained of "dullness" to the left side and overall weakness throughout. MD notified and CT scan completed. Pt with continued nausea and vomiting and VS trending towards instability. MD notified and updated throughout shift of findings and ultimately hospitalist was consulted via Dr. Pereyra for admission. Dr. Hickey at bedside with assessment of pt. Chest Xray, CT of abdoment, Lactic acid, ABG ordered and obtained per orders. Pt with Crit high LA of 3.0; MD notified and orders recieved for abx and fluids. ABX infused per orders into mediport. Potassium of 2.8; 40meq IV K+ ordered and infused per orders. Handoff given to day RN who assumes care
[2019-07-30 15:30] LABS: Source, Urine Clean Catch
[2019-07-30 15:35] LABS: Appearance, Urine Clear (Clear); Bilirubin, Urine Neg (Neg); Blood, Urine 3+ (Neg); Color, Urine Yellow (P-Yellow); Glucose Qualitative, Urine Neg (Neg); Ketones, Urine 1+ (Neg); Leukocyte Esterase, Urine 1+ (Neg); Nitrite, Urine Neg (Neg); Protein, Urine 4+ (Neg); Urobilinogen, Urine NORM (Normal)
[2019-07-30 16:18] LABS: White Blood Cells, Urine 0-2 /hpf (0-5)
[2019-07-30 16:19] LABS: Bacteria Few /hpf; Squamous Epithelial Cells Rare /hpf (Few)
--- NOTE | 2019-07-30 19:27 | NUR ---
SHIFT SUMMARY PT RESPONDING TO VERBAL STIMULI THIS AM, MORE ALERT THIS AFTERNOON. ORIENTED X3. PT RESTING IN BED DURING SHIFT, REPOSITIONED SELF FOR COMFORT. PT REPORTING CHRONIC BACK PAIN, DENIES PAIN MEDICATIONS, USING REPOSITIONING AND HEATING PAD. PT NAUSEA AND VOMITING T/O SHIFT, MEDICATED x4 PER EMAR. PT STATES PHENERGAN WORKS BESTS. PT DIET ADVANCED TOLERATED, PT UNALBE TO TOLERATE SIPS OF WATER OR ICE AT THIS TIME. PT REPORTS ABD TENDERNESS. TELE A/FLUTTER. ON ON RA-2L O2 VIA NC, SPO2 >92% T/O SHIFT. RIGHT GROIN ACCESS, HEMATOMA NOTED, NO CHANGES FROM INITIAL ASSESSMENT. VSS. NO OTHER ACUTE CHANGES NOTED. REPORT GIVEN TO ONCOMING RN.
--- NOTE | 2019-07-31 05:27 | NUR ---
END OF SHIFT SUMMARY PT AXO THIS SHIFT BUT VERY TIRED AND SLEEPY R/T N/V. PT CONTINUES WITHNAUSEA BUT HAS LESSENED, SOME EPISODES OF EMESIS BUT THIS HAS ALSO SLOWED, POSSIBLY DUE TO PT SLEEPING, MEDS PER EMAR. REMAINS ON 2LNC. MEDIPORT CONTINUES TO HAVE THO FLUIDS THROUGH IT. PT HAS NOT HAD INSTANCE OF INCONTINECE TO THIS RN'S KNOWLEDGE. R GROIN SITE CONTINUES TO NOT SHOW ANY NEW DRAINAGE, SOMEWHAT TENDER TO PALPATION BUT NO NEW SWELLING/REDNESS NOTED. PT'S VSS EXCEPT HTN REQUIRING APRESOLINE. PT HAS BEEN RESTING T/O SHIFT. HAS BEEN ABLE TO EXPRESS NEEDS AND CALLS APPROPRIATELY. CALL LIGHT WITHIN REACH. WILL CONTINUE TO MONITOR UNTIL SHIFT CHANGE.
[2019-07-31 05:29] LABS: BASOPHILS ABSOLUTE AUTO 0.03 K/mm3 (0.00-0.23); BASOPHILS PERCENT AUTO 0 % (0-2); EOSINOPHILS ABSOLUTE AUTO 0.01 K/mm3 (0.00-0.68); EOSINOPHILS PERCENT AUTO 0 % (0-6); Hematocrit 45.4 % (33.0-51.0); Hemoglobin 14.3 g/dL (11.5-16.0); IMMATURE GRAN ABSOLUTE AUTO 0.11 K/mm3 (0.00-0.10); IMMATURE GRAN PERCENT AUTO 1 % (0-1); LYMPHOCYTES ABSOLUTE AUTO 2.86 K/mm3 (0.84-5.20); LYMPHOCYTES PERCENT AUTO 14 % (21-46); MONOCYTES ABSOLUTE AUTO 1.49 K/mm3 (0.16-1.47); MONOCYTES PERCENT AUTO 8 % (4-13); Mean Corpuscular HGB 27.7 pg (26.0-34.0); Mean Corpuscular HGB Conc 31.5 g/dL (31.5-36.5); Mean Platelet Volume 11.9 fL (9.1-12.4); NEUTROPHILS PERCENT AUTO 77 % (41-73); Platelet Count 182 K/mm3 (150-400); RDW Coefficient Variation 14.7 % (11.7-14.2); RDW Standard Deviation 47.3 fL (35.1-46.3); Red Blood Cell Count 5.17 M/mm3 (3.80-5.20)
[2019-07-31 05:30] LABS: Mean Corpuscular Volume 88 fL (80-100)
[2019-07-31 05:38] LABS: Anion Gap 6 mmol/L (6-16); Blood Urea Nitrogen 18 mg/dL (8-24); Bun/Creatinine Ratio 21.6 (12.0-20.0); CO2, Blood 28 mmol/L (21-32); Calcium, Blood 8.6 mg/dL (8.5-10.1); Chloride, Blood 108 mmol/L (98-108); Creatinine, Blood 0.84 mg/dL (0.40-1.00); Glomerular Filtration Rate >60 (60-); Glucose, Blood 150 mg/dL (70-99); Potassium, Blood 3.2 mmol/L (3.5-5.5); Sodium, Blood 142 mmol/L (136-145)
--- NOTE | 2019-07-31 09:15 | NUR ---
PATIENT TRANSFERRED FROM PCU 3 TO 331. PATIENT REMAINS NAUSEATED, BUT ABLE TO HOLD DOWN SOME OF HER MORNING MEDS. VSS, ON 2LO2 TO MAINTAIN SATS. A-FLUTTER IN THE 70'S ON TELE PER BEST LING IN PCU. PATIENT ORIENTED TO ROOM AND USE OF CALL LIGHT. DENIES ANY NEEDS AT THIS TIME.
--- NOTE | 2019-07-31 10:09 | NUR ---
The pt was given phenergan IV due to nausea and vomiting this morning after she was seen by both Dr. Hairston and Dr. Kitchen. She stated a few minutes later that she was feeling a little bit better, so most of her oral scheduled medications were administered before she was transferred to the medical floor. Spoke with No, the receiving RN, and explained that the pt had been able to tolerate the p.o. medications which had been given about 10 minutes prior to the transfer. Pt was transferred to room 331 in the bed.
--- NOTE | 2019-07-31 18:38 | NUR ---
PATIENT A/OX4, UP WITH FWW AND SBA TO RESTROOM. CONTINUES TO HAVE NAUSEA AND DIARRHEA, BUT NO VOMITING THIS SHIFT. MEDIPORT TO R CHEST WNL, NS RUNNING AT TKO. DRESSING TO R GROIN FROM RENAL ARTERY STENT PLACEMENT YESTERDAY WNL. TOLERATING CLEARS. VSS, ON RA THIS EVENING. CALM AND COOPERATIVE WITH CARE, CALLS APPROPRIATELY FOR ASSISTANCE.
--- NOTE | 2019-08-01 03:16 | NUR ---
07/31/19 2000 PT RESTING COMFORTABLY IN BED, DENIES NAUSEA OR EMESIS, RIGHT GROIN TEGADERM DRESSING DRY AND INTACT, HAPPY AND COOPERATIVE. 08/01/19 0300 PT RESTING COMFORTABLY IN BED.
[2019-08-01 05:34] LABS: BASOPHILS ABSOLUTE AUTO 0.04 K/mm3 (0.00-0.23); BASOPHILS PERCENT AUTO 0 % (0-2); EOSINOPHILS ABSOLUTE AUTO 0.14 K/mm3 (0.00-0.68); EOSINOPHILS PERCENT AUTO 1 % (0-6); Hematocrit 40.3 % (33.0-51.0); Hemoglobin 12.6 g/dL (11.5-16.0); IMMATURE GRAN ABSOLUTE AUTO 0.04 K/mm3 (0.00-0.10); IMMATURE GRAN PERCENT AUTO 0 % (0-1); LYMPHOCYTES ABSOLUTE AUTO 3.21 K/mm3 (0.84-5.20); LYMPHOCYTES PERCENT AUTO 27 % (21-46); MONOCYTES ABSOLUTE AUTO 0.81 K/mm3 (0.16-1.47); MONOCYTES PERCENT AUTO 7 % (4-13); Mean Corpuscular HGB 27.6 pg (26.0-34.0); Mean Corpuscular HGB Conc 31.3 g/dL (31.5-36.5); Mean Corpuscular Volume 88 fL (80-100); Mean Platelet Volume 11.6 fL (9.1-12.4); NEUTROPHILS ABSOLUTE AUTO 7.55 K/mm3 (1.96-9.15); NEUTROPHILS PERCENT AUTO 64 % (41-73); Platelet Count 124 K/mm3 (150-400); RDW Coefficient Variation 14.4 % (11.7-14.2); RDW Standard Deviation 46.1 fL (35.1-46.3); Red Blood Cell Count 4.56 M/mm3 (3.80-5.20); White Blood Cell Count 11.79 K/mm3 (4.00-11.30)
[2019-08-01 05:47] LABS: Anion Gap 4 mmol/L (6-16); Blood Urea Nitrogen 17 mg/dL (8-24); Bun/Creatinine Ratio 19.4 (12.0-20.0); CO2, Blood 29 mmol/L (21-32); Calcium, Blood 8.3 mg/dL (8.5-10.1); Chloride, Blood 109 mmol/L (98-108); Creatinine, Blood 0.88 mg/dL (0.40-1.00); Glomerular Filtration Rate >60 (60-); Glucose, Blood 96 mg/dL (70-99); Magnesium, Blood 1.7 mg/dL (1.6-2.4); Potassium, Blood 2.9 mmol/L (3.5-5.5); Sodium, Blood 142 mmol/L (136-145)
--- NOTE | 2019-08-01 06:37 | NUR ---
SHIFT SUMMARY: 53 Y/O FEMALE RESTED COMFORTABLY 3/4 SHIFT, PT CONTINUES TO HAVE ONGOING NAUSEA (PHENERGAN 25MG IVP GIVEN TWICE WITH RELIEF) AND CLEAR EMESIS X 2 25ML, C/O CHRONIC BACK PAIN 02/24 WITH OXYCODONE 30MG PO GIVEN WITH RELIEF FELT, PTS RIGHT GROIN DRESSING DRY AND INTACT WITH SURROUNDING SKIN REFLECTING NO HEMATOMA, CONTACT ISOLATION MAINTAINED, BED LOW POSITION WITH CALL LIGHT AT SIDE.
--- NOTE | 2019-08-01 14:52 | NUR ---
spoke with pharmacist bacilio, about the current potassium to hang and her antibiotics. he stated they are compatible but if needed to run the flagyl before the last bag of potassium.
--- NOTE | 2019-08-01 18:41 | NUR ---
SHIFT SUMMARY NO ACUTE CONCERNS AT THIS TIME. PATIENT IS PLEASANT, ALERT AND ORIENTED. SHE HAS DENIED NAUSEA AT THIS TIME. SHE HAS BEEN GIVEN 2 OF 3 PAIN MEDICATION DOSES TODAY. HER NAUSEA IS NOT GONE BUT HAS STARTED TO LET UP. SHE IS INDEPENDENT IN THE ROOM.
[2019-08-02 04:42] LABS: BASOPHILS ABSOLUTE AUTO 0.04 K/mm3 (0.00-0.23); BASOPHILS PERCENT AUTO 0 % (0-2); EOSINOPHILS ABSOLUTE AUTO 0.13 K/mm3 (0.00-0.68); EOSINOPHILS PERCENT AUTO 1 % (0-6); Hematocrit 43.6 % (33.0-51.0); Hemoglobin 13.7 g/dL (11.5-16.0); IMMATURE GRAN ABSOLUTE AUTO 0.08 K/mm3 (0.00-0.10); IMMATURE GRAN PERCENT AUTO 1 % (0-1); LYMPHOCYTES ABSOLUTE AUTO 2.19 K/mm3 (0.84-5.20); LYMPHOCYTES PERCENT AUTO 17 % (21-46); MONOCYTES ABSOLUTE AUTO 1.02 K/mm3 (0.16-1.47); MONOCYTES PERCENT AUTO 8 % (4-13); Mean Corpuscular HGB 27.7 pg (26.0-34.0); Mean Corpuscular HGB Conc 31.4 g/dL (31.5-36.5); Mean Corpuscular Volume 88 fL (80-100); Mean Platelet Volume 11.4 fL (9.1-12.4); NEUTROPHILS ABSOLUTE AUTO 9.67 K/mm3 (1.96-9.15); NEUTROPHILS PERCENT AUTO 74 % (41-73); Platelet Count 160 K/mm3 (150-400); RDW Coefficient Variation 14.2 % (11.7-14.2); RDW Standard Deviation 45.5 fL (35.1-46.3); Red Blood Cell Count 4.94 M/mm3 (3.80-5.20); White Blood Cell Count 13.13 K/mm3 (4.00-11.30)
[2019-08-02 04:58] LABS: Anion Gap 8 mmol/L (6-16); Blood Urea Nitrogen 14 mg/dL (8-24); Bun/Creatinine Ratio 16.4 (12.0-20.0); CO2, Blood 23 mmol/L (21-32); Calcium, Blood 8.5 mg/dL (8.5-10.1); Chloride, Blood 108 mmol/L (98-108); Creatinine, Blood 0.85 mg/dL (0.40-1.00); Glomerular Filtration Rate >60 (60-); Glucose, Blood 174 mg/dL (70-99); Sodium, Blood 139 mmol/L (136-145)
--- NOTE | 2019-08-02 06:17 | NUR ---
SHIFT SUMMARY: PT HAD RESTLESS SHIFT AT TIMES DURING NIGHT WITH TWO EPISODES HYPERTENSION WITH APPRESOLINE 10MG IVP GIVEN (BP PRIOR 170/104 AND 156/93 AFTERWARDS), PT ALSO CONTINUES TO HAVE ONGOING NAUSEA WITH NO EMESIS AND PHENERGAN 25MG IVP GIVEN TWICE WITH SLIGHT RELIEF VOICED, PT C/O CHRONIC BACK PAIN RATED 6/10 WITH OXYCODONE 30MG PO X 1 GIVEN TWICE WITH RELIEF FELT, RIGHT GROIN TEGADERM DRESSING DRY AND INTACT WITH SURROUNDING SKIN REFLECTING NO HEMATOMA, BED LOW POSITION WITH CALL LIGHT AT SIDE, DROPLET ISOLATION MAINTAINED.
--- NOTE | 2019-08-03 04:32 | NUR ---
SHIFT SUMMARY: 53 Y/O FEMALE RESTED COMFORTABLY ALL SHIFT, C/O BACK PAIN RATED 6/10 WITH OXYCODONE 5MG PO GIVEN TWICE WITH RELIEF FELT, DENIES EMESIS, C/O NAUSEA X 1 AT BEGINNING SHIFT WITH COMPAZINE 10MG IVP GIVEN WITH RELIEF FELT (NOTE: PT HAS CHRONIC NAUSEA AT HOME WITH PHENERGAN 25MG PO TAKEN), RIGHT GROIN DRESSING DRY AND INTACT, BED LOW POSITION WITH CALL LIGHT AT SIDE.
--- NOTE | 2019-08-03 15:33 | NUR ---
discharge summary patient given all discharge information. she is currently in the shower awaiting her ride to get here. she has been disconnected from her mediport. she is very pleasant and glad to be going home. no nausea, no concerns at this time.
== END 2019-08-03 17:47 | disposition home or self-care (01) ==
LOC: MHTC 09:18 → PCU 10:01 → MHTC 19:54 → PCU 07-30 05:33 → MEDS 07-30 16:29 → PCU 07-30 16:29 → MEDS 07-31 09:23 → MHTC 08-03 17:47 → MEDS 08-03 17:47
PROVIDERS: Family Medicine; Hospitalist; Radiology Diagnostic Radiology
DX: I70.1 Atherosclerosis of renal artery (principal); R41.82 Altered mental status, unspecified; R00.0 Tachycardia, unspecified; R11.2 Nausea with vomiting, unspecified; R10.9 Unspecified abdominal pain; E87.6 Hypokalemia; J96.01 Acute respiratory failure with hypoxia; G47.30 Sleep apnea, unspecified; I25.10 Atherosclerotic heart disease of native coronary artery without angina pectoris; E11.22 Type 2 diabetes mellitus with diabetic chronic kidney disease; I13.0 Hypertensive heart and chronic kidney disease with heart failure and stage 1 through stage 4 chronic kidney disease, or unspecified chronic kidney disease; N18.9 Chronic kidney disease, unspecified; I50.9 Heart failure, unspecified; F17.210 Nicotine dependence, cigarettes, uncomplicated; J44.9 Chronic obstructive pulmonary disease, unspecified; F41.9 Anxiety disorder, unspecified; Z79.01 Long term (current) use of anticoagulants; Z88.0 Allergy status to penicillin; Z88.8 Allergy status to other drugs, medicaments and biological substances; Z88.6 Allergy status to analgesic agent; Z88.2 Allergy status to sulfonamides; Z88.1 Allergy status to other antibiotic agents; Z88.5 Allergy status to narcotic agent; Z79.4 Long term (current) use of insulin; Z91.018 Allergy to other foods; Z95.828 Presence of other vascular implants and grafts
CPT/HCPCS: 36252; 36415; 36600; 37236; 70450; 71045; 74176; 80048; 81001; 82803; 82947; 83605; 83735; 83880; 84145; 85025; 87040; 87077; 87081; 87086; 87186; 93005; 93010; 96361; 96365; 96366; 96375; 96376; 99152; 99153; C1725; C1760; C1769; C1874; C1876; C1887; C1894; G0378; J0360; J0696; J0780; J2060; J2250; J2405; J2550; J2765; J2997; J3010; J3480; J7030; J7040; J7050; J7120; Q9967

== ENCOUNTER 2019-09-07 19:14 | Emergency (ER) | payer MEDICARE, OTHER ==
[~2019-09-07] VITALS: Ht 152.4 cm; Wt 67.1 kg
[~2019-09-07 19:14] MED LIST changes: +Aldactone100 MG PO; +Crestor20 MG PO; +LACT PO; +METO5 PO; +RANEXA500 MG PO; +Ranitidine HCl300 M1 PO; +Robaxin-750750 MG PO; +SERT100 PO; +Zofran8 MG PO
[2019-09-07 20:20] LABS: BASOPHILS ABSOLUTE AUTO 0.07 K/mm3 (0.00-0.23); BASOPHILS PERCENT AUTO 1 % (0-2); EOSINOPHILS ABSOLUTE AUTO 0.24 K/mm3 (0.00-0.68); EOSINOPHILS PERCENT AUTO 3 % (0-6); Hematocrit 37.4 % (33.0-51.0); Hemoglobin 11.2 g/dL (11.5-16.0); IMMATURE GRAN ABSOLUTE AUTO 0.02 K/mm3 (0.00-0.10); IMMATURE GRAN PERCENT AUTO 0 % (0-1); LYMPHOCYTES ABSOLUTE AUTO 2.91 K/mm3 (0.84-5.20); LYMPHOCYTES PERCENT AUTO 32 % (21-46); MONOCYTES ABSOLUTE AUTO 0.76 K/mm3 (0.16-1.47); MONOCYTES PERCENT AUTO 8 % (4-13); Mean Corpuscular HGB 26.4 pg (26.0-34.0); Mean Corpuscular HGB Conc 29.9 g/dL (31.5-36.5); Mean Corpuscular Volume 88 fL (80-100); Mean Platelet Volume 11.8 fL (9.1-12.4); NEUTROPHILS ABSOLUTE AUTO 5.05 K/mm3 (1.96-9.15); NEUTROPHILS PERCENT AUTO 56 % (41-73); Platelet Count 226 K/mm3 (150-400); RDW Coefficient Variation 16.2 % (11.7-14.2); Red Blood Cell Count 4.24 M/mm3 (3.80-5.20); White Blood Cell Count 9.05 K/mm3 (4.00-11.30)
[2019-09-07 20:39] LABS: Alanine Aminotransfer (ALT/SGP 24 U/L (12-78); Albumin, Blood 3.2 g/dL (3.4-5.0); Alk Phos 111 U/L (50-136); Anion Gap 6 mmol/L (6-16); Aspartate Aminotrans (AST/SGOT 16 U/L (12-37); Bilirubin, Total 0.1 mg/dL (0.1-1.0); Blood Urea Nitrogen 17 mg/dL (8-24); Bun/Creatinine Ratio 17.7 (12.0-20.0); CO2, Blood 24 mmol/L (21-32); Calcium, Blood 8.4 mg/dL (8.5-10.1); Chloride, Blood 112 mmol/L (98-108); Creatinine, Blood 0.96 mg/dL (0.40-1.00); Globulin, Blood 3.2 g/dL (2.2-4.0); Glomerular Filtration Rate >60 (60-); Glucose, Blood 112 mg/dL (70-99); Potassium, Blood 3.8 mmol/L (3.5-5.5); Sodium, Blood 142 mmol/L (136-145); Total Protein, Blood 6.4 g/dL (6.4-8.2)
[2019-09-07 21:35] LABS: Source, Urine Clean Catch
[2019-09-07 21:39] LABS: Bilirubin, Urine Neg (Neg); Blood, Urine 5+ (Neg); Glucose Qualitative, Urine Neg (Neg); Ketones, Urine 1+ (Neg); Leukocyte Esterase, Urine 1+ (Neg); Nitrite, Urine Neg (Neg); Protein, Urine 1+ (Neg); Urobilinogen, Urine NORM (Normal)
[2019-09-07 21:40] LABS: Appearance, Urine Hazy (Clear); Color, Urine Yellow (P-Yellow)
[2019-09-07 21:48] LABS: Bacteria Few /hpf; Red Blood Cells, Urine TNTC /hpf (0-2); Squamous Epithelial Cells Few /hpf (Few); White Blood Cells, Urine 0-2 /hpf (0-5)
== END 2019-09-07 22:28 | disposition home or self-care (01) ==
LOC: ER 19:14
PROVIDERS: Emergency Medicine
DX: N20.0 Calculus of kidney (principal); K29.70 Gastritis, unspecified, without bleeding; I13.0 Hypertensive heart and chronic kidney disease with heart failure and stage 1 through stage 4 chronic kidney disease, or unspecified chronic kidney disease; E11.22 Type 2 diabetes mellitus with diabetic chronic kidney disease; N18.9 Chronic kidney disease, unspecified; I50.9 Heart failure, unspecified; I25.10 Atherosclerotic heart disease of native coronary artery without angina pectoris; I48.91 Unspecified atrial fibrillation; J44.9 Chronic obstructive pulmonary disease, unspecified; F41.9 Anxiety disorder, unspecified; F17.200 Nicotine dependence, unspecified, uncomplicated; Z88.8 Allergy status to other drugs, medicaments and biological substances; Z91.018 Allergy to other foods; Z88.6 Allergy status to analgesic agent; Z88.2 Allergy status to sulfonamides; Z88.5 Allergy status to narcotic agent; Z88.1 Allergy status to other antibiotic agents; Z79.899 Other long term (current) drug therapy; Z79.01 Long term (current) use of anticoagulants; Z79.4 Long term (current) use of insulin; Z86.73 Personal history of transient ischemic attack (TIA), and cerebral infarction without residual deficits
CPT/HCPCS: 74176; 80053; 81001; 83690; 85025; 87077; 87086; 87186; 96374; 96375; 99284-25; J1170; J3010

== ENCOUNTER 2019-10-27 05:55 | Inpatient (IN) | payer MEDICARE, OTHER ==
[~2019-10-27] VITALS: Ht 165.1 cm; Wt 75.2 kg
[2019-10-27 06:53] LABS: BASOPHILS ABSOLUTE AUTO 0.09 K/mm3 (0.00-0.23); BASOPHILS PERCENT AUTO 1 % (0-2); EOSINOPHILS ABSOLUTE AUTO 0.33 K/mm3 (0.00-0.68); EOSINOPHILS PERCENT AUTO 2 % (0-6); Hematocrit 49.6 % (33.0-51.0); Hemoglobin 14.1 g/dL (11.5-16.0); IMMATURE GRAN ABSOLUTE AUTO 0.05 K/mm3 (0.00-0.10); IMMATURE GRAN PERCENT AUTO 0 % (0-1); LYMPHOCYTES PERCENT AUTO 31 % (21-46); MONOCYTES PERCENT AUTO 6 % (4-13); Mean Corpuscular HGB 25.6 pg (26.0-34.0); Mean Corpuscular HGB Conc 28.4 g/dL (31.5-36.5); Mean Corpuscular Volume 90 fL (80-100); Mean Platelet Volume 11.8 fL (9.1-12.4); NEUTROPHILS ABSOLUTE AUTO 10.29 K/mm3 (1.96-9.15); NEUTROPHILS PERCENT AUTO 61 % (41-73); Platelet Count 216 K/mm3 (150-400); RDW Standard Deviation 56.1 fL (35.1-46.3); Red Blood Cell Count 5.51 M/mm3 (3.80-5.20); White Blood Cell Count 16.96 K/mm3 (4.00-11.30)
[2019-10-27 06:58] LABS: Source, Urine Catheter
[2019-10-27 07:09] LABS: Bilirubin, Urine Neg (Neg); Blood, Urine 5+ (Neg); Glucose Qualitative, Urine 1+ (Neg); Ketones, Urine Neg (Neg); Leukocyte Esterase, Urine Neg (Neg); Nitrite, Urine Neg (Neg); Protein, Urine 3+ (Neg); Urobilinogen, Urine NORM (Normal)
[2019-10-27 07:16] LABS: Alanine Aminotransfer (ALT/SGP 46 U/L (12-78); Albumin, Blood 3.3 g/dL (3.4-5.0); Albumin/Globulin Ratio 0.9 (0.8-1.8); Anion Gap 8 mmol/L (6-16); Aspartate Aminotrans (AST/SGOT 73 U/L (12-37); Bilirubin, Total 0.3 mg/dL (0.1-1.0); Blood Urea Nitrogen 18 mg/dL (8-24); Bun/Creatinine Ratio 19.9 (12.0-20.0); CO2, Blood 21 mmol/L (21-32); Calcium, Blood 8.3 mg/dL (8.5-10.1); Chloride, Blood 115 mmol/L (98-108); Globulin, Blood 3.8 g/dL (2.2-4.0); Glomerular Filtration Rate >60 (60-); Glucose, Blood 255 mg/dL (70-99); Sodium, Blood 144 mmol/L (136-145); Total Protein, Blood 7.1 g/dL (6.4-8.2)
[2019-10-27 07:19] LABS: Alk Phos 142 U/L (50-136); Troponin I <0.015 ng/mL (0.000-0.040)
[2019-10-27 07:22] LABS: Appearance, Urine Hazy (Clear); Color, Urine Yellow (P-Yellow)
[2019-10-27 07:24] LABS: Bacteria Rare /hpf; Mucus Light (0-Heavy); Red Blood Cells, Urine TNTC /hpf (0-2); Squamous Epithelial Cells Rare /hpf (Few)
[2019-10-27 07:34] LABS: U Amphetamine Screen Not Detected; U Barbituate Screen DETECTED; U Benzodiazapine Screen DETECTED; U Cannabinoids Screen DETECTED; U Methamphetamine Screen Not Detected
[2019-10-27 07:36] LABS: U Buprenorphine Screen Not Detected; U Cocaine Screen Not Detected; U Methadone Screen Not Detected; U Opiates Screen Not Detected; U Oxycodone Screen Not Detected; U Propoxyphene Screen Not Detected
[2019-10-27 10:11] LABS: Bicarbonate Venous 20.5 mmol/L (24.0-30.0); PCO2 Venous 50.9 mmHg (38-42); PO2 Venous 30.7 mmHg (38-42); pH Blood Venous 7.27 (7.34-7.37)
[2019-10-27 10:12] LABS: Base Excess Venous -3.5 mmol/L
[2019-10-27 12:41] LABS: Adenovirus Not Detected (NOT DETECT); Bordetella pertussis Not Detected (NOT DETECT); Chlamydophila pneumoniae Not Detected (NOT DETECT); Coronavirus 229E Not Detected (NOT DETECT); Coronavirus HKU1 Not Detected (NOT DETECT); Coronavirus NL63 Not Detected (NOT DETECT); Coronavirus OC43 Not Detected (NOT DETECT); Human Metapneumovirus Not Detected (NOT DETECT); Human Rhinovirus/Enterovirus Not Detected (NOT DETECT); Influenza A Not Detected (NOT DETECT); Influenza A/2009-H1 Not Detected (NOT DETECT); Influenza A/H1 Not Detected (NOT DETECT); Influenza A/H3 Not Detected (NOT DETECT); Influenza B Not Detected (NOT DETECT); Mycoplasma pneumoniae Not Detected (NOT DETECT); Parainfluenza Virus 1 Not Detected (NOT DETECT); Parainfluenza Virus 2 Not Detected (NOT DETECT); Parainfluenza Virus 3 Not Detected (NOT DETECT); Parainfluenza Virus 4 Not Detected (NOT DETECT); Respiratory Syncytial Virus Not Detected (NOT DETECT)
--- NOTE | 2019-10-27 13:21 | NUR ---
DR SANDRA: PROVIDER AT BEDSIDE TO EVAL PT. FIO2 DECREASED TO 30% & PT PLACED ON SPONTANEOUS W/ PS 06/21. PT TOLERATING WELL, SEDATION DECREASED. PT CURRENTLY CALM & COOPERATIVE. PLAN IS FOR POSSIBLE EXTUBATION THIS AFTERNOON & PT IS ABLE TO WAKE & TOLERATE SPONTANEOUS MODE.
--- NOTE | 2019-10-27 14:45 | NUR ---
EXTUBATION: PT EXTUBATED & 2L NC PLACED AT 1437. RESTRAINTS REMOVED AT THIS TIME. PT IS A&O, FOLLOWING COMMANDS W/O DIFFICULTY. O2 SATS MAINTAINING > 90%.
--- NOTE | 2019-10-27 14:51 | NUR ---
PT EXTUBATED AT 1437 WITHOUT INCIDENT, PT WAS ALERT AND FOLLOWING COMMANDS, PT ORALLY AND ETT SX FOR COPIOUS THICK WHITE WITH BROWN FLAKES, PT EXTUBATED TO 2L SPO2 NOTED AT 97%. WILL CONTINUE TO MONITOR.
--- NOTE | 2019-10-27 17:09 | NUR ---
SHIFT SUMMARY: NO ACUTE CHANGES SINCE PRIOR UPDATES. PT CONTINUES ON 2L NC W/ O2 SATS > 90%. SHE IS TOELRATING THIS WELL W/ NO DYSPNEA NOTED. SHE HAS BEEN RESTING QUIETLY SINCE TIME OF EXTUBATION. MONITOR SHOWS SR W/ HR 70s, BP STABLE. PT HAS NO GI COMPLAINTS AFTER PRN ANTIEMETIC PER EMAR AT TIME OF EXTUBATION. TEMP DRAKE PATENT/ DRAINING. SKIN OVERALL CDI. WILL CONTINUE TO MONITOR & REPORT OFF TO ONCOMING RN.
--- NOTE | 2019-10-27 21:03 | NUR ---
PATIENT AWAKE AFTER TALKING TO RT REGARDING WEARING BIPAP TONIGHT, PATIENT BECOMING RESTLESS AND ANXIOUS, C/O BACK PAIN AND VERBALIZING "I CAN'T DO THIS" C/O CHRONIC BACK PAIN 05/27 RESISTING ATTEMPT TO ASSIST WITH REPOSITIONING. "I JUST WANT TO GO HOME" EXPLAINED TO PATIENT THAT WE ARE CONCERNED ABOUT HER BREATHING AND ARE WANTING TO KEEP A CLOSE EYE ON HER AT LEAST TONIGHT. PATIENTS DAUGHTER IN TO VISIT AND WAS ABLE TO ASSIST WITH CALMING AND REASSURING PATIENT. PATIENT MEDICATED WITH FENTANYL FOR HER BACK PAIN, ATIVAN FOR HER ANXIETY AND REASSURED THAT WE WILL NOT FORCE HER TO WEAR THE BIPAP LONG HER BREATHING IS OK. PATIENT ON 2L/NC WHICH SHE WEARS AT HOME, LUNG SOUNDS WITH EXPIRATORY WHEEZES. HARSH DRY COUGH WITH SMALL AMT OF THICK WHITE SPUTUM. MRSA CLEARING SWABS DONE. BEDSIDE SWALLOW EVAL DONE PATIENT HAD NO DIFFICULTY.
[2019-10-28 04:58] LABS: BASOPHILS ABSOLUTE AUTO 0.02 K/mm3 (0.00-0.23); BASOPHILS PERCENT AUTO 0 % (0-2); EOSINOPHILS PERCENT AUTO 0 % (0-6); Hematocrit 38.6 % (33.0-51.0); Hemoglobin 11.6 g/dL (11.5-16.0); IMMATURE GRAN ABSOLUTE AUTO 0.04 K/mm3 (0.00-0.10); IMMATURE GRAN PERCENT AUTO 0 % (0-1); LYMPHOCYTES ABSOLUTE AUTO 1.57 K/mm3 (0.84-5.20); LYMPHOCYTES PERCENT AUTO 14 % (21-46); MONOCYTES ABSOLUTE AUTO 0.38 K/mm3 (0.16-1.47); MONOCYTES PERCENT AUTO 3 % (4-13); Mean Corpuscular HGB 25.7 pg (26.0-34.0); Mean Corpuscular HGB Conc 30.1 g/dL (31.5-36.5); Mean Platelet Volume 12.3 fL (9.1-12.4); NEUTROPHILS ABSOLUTE AUTO 9.34 K/mm3 (1.96-9.15); NEUTROPHILS PERCENT AUTO 82 % (41-73); Platelet Count 163 K/mm3 (150-400); RDW Standard Deviation 53.4 fL (35.1-46.3); Red Blood Cell Count 4.51 M/mm3 (3.80-5.20); White Blood Cell Count 11.35 K/mm3 (4.00-11.30)
[2019-10-28 04:59] LABS: Mean Corpuscular Volume 86 fL (80-100)
[2019-10-28 05:26] LABS: Alanine Aminotransfer (ALT/SGP 36 U/L (12-78); Alk Phos 89 U/L (50-136); Anion Gap 7 mmol/L (6-16); Aspartate Aminotrans (AST/SGOT 26 U/L (12-37); Bilirubin, Total 0.4 mg/dL (0.1-1.0); Blood Urea Nitrogen 15 mg/dL (8-24); Bun/Creatinine Ratio 21.9 (12.0-20.0); CO2, Blood 20 mmol/L (21-32); Calcium, Blood 8.2 mg/dL (8.5-10.1); Chloride, Blood 118 mmol/L (98-108); Creatinine, Blood 0.69 mg/dL (0.40-1.00); Globulin, Blood 3.1 g/dL (2.2-4.0); Glomerular Filtration Rate >60 (60-); Glucose, Blood 126 mg/dL (70-99); Magnesium, Blood 1.7 mg/dL (1.6-2.4); Potassium, Blood 4.4 mmol/L (3.5-5.5); Sodium, Blood 145 mmol/L (136-145); Total Protein, Blood 6.1 g/dL (6.4-8.2)
--- NOTE | 2019-10-28 05:39 | NUR ---
SUMMARY PATIENT SLEEPING OFF AND ON T/O NIGHT. REMAINING ON 2L/NC T/O NIGHT. HARSH COUGH CONTINUES WITH SMALL AMT OF THICK WHITE SPUTUM. PATIENT C/O SEVER BACK PAIN AND LEG CRAMPS. MEDICATED WITH FENTANYL AND ATIVAN PRN. PATIENT CONTINUES TO HOPE TO GO HOME TODAY.
--- NOTE | 2019-10-28 13:01 | NUR ---
PT MEDICATED FOR COMPLAINT OF ANXIETY. CALL LIGHT REMAINS IN REACH.
--- NOTE | 2019-10-28 17:15 | NUR ---
TRANSFER NOTE RECEIVED REPORT FROM BEST TINOCO IN ICU. PT TO ROOM AT 1655, 3 PERSON TRANSFER TO WITH SLIDER SHEET TO BED. PT ORIENTED TO ROOM AND CALL LIGHT. PT A&Ox4; PT ANXIOUS BUT COOPERATIVE WITH CARE. PT RESTING IN BED. PT REPORTS PAIN IN BACK, MEDICATED PER EMAR. PT SOB WITH EXERTION; 1L O2 VIA NC; LS CLEAR DIM IN BASES. TELE NSR BBB IN 70'S. HYPERTENSION NOTED. MINIMAL APPETITE NOTED. OTHER VSS. NO OTHER ACUTE CHANGES NOTED DURING SHIFT. WILL CONTINUE TO MONITOR UNITL REPORT GIVEN TO ONCPATRICIO JEWELL..
--- NOTE | 2019-10-28 23:40 | NUR ---
PT REFUSING CBG AT THIS TIME.
--- NOTE | 2019-10-29 05:05 | NUR ---
SHIFT SUMMMARY PT SLEEPING IN ROOM COMFORTABLY AT THIS TIME. NO ACUTE CHANGES IN STATUS T/O NIGHT. PT SLEPT WELL. RESP EVEN UNLABORED ON 1L NC W/ SATS >92%. PT REFUSED TURNS SEVERAL TIMES DURING THE NIGHT. REPORTS IT HURT TOO MUCH TO MOVE. PT DID AGREE TO ELEVATE BUE ON PILLOWS TO REDUCE EDEMA. PT WAS MEDICATED FOR PAIN PER EMAR. DRAKE CATH IN PLACE DRAINING URINE TO GRAVITY. CALL LIGHT IN REACH.
--- NOTE | 2019-10-29 17:22 | NUR ---
SHIFT SUMMARY PT A&Ox3; ANXIOUS BUT COOPERATIVE WITH CARE. PT RESTING IN BED DURING SHIFT, REFUSING TURNS Q2H, RESPOITIONS SELF. 1 PERSON ASSIST. PT REPORTS BACK PAIN, MEDICATED x1 WITH OXYCODONE WITH POSITIVE RESULTS. PT ANXIOUS, MEDICATED x1 WITH ATIVAN THIS AM WITH POSITIVE RESULTS. PT SOB WITH EXERTION, SPO2 >90% ON 1L O2 VIA NC, CRACKLES NOTED IN BASES THIS AM, DR NOTIFIED, NEW ORDERS FOR BUMEX; PT OUTPUT OF 3900 OUT, DIM IN BASES WITH NON CRACKLES THIS AFTERNOON. DRAKE PATENT AND DRAINING. PT REPORTS NAUSEA, MEDICATED x1 WITH ZOFRAN WITH POSITIVE RESULTS. PT RECEIVING IV ANTIBIOTICS. VSS. NO OTHER ACUTE CHANGES NOTED DURING SHIFT. REPORT GIVEN TO ONCOMING RN.
[2019-10-30 06:21] LABS: BASOPHILS ABSOLUTE AUTO 0.01 K/mm3 (0.00-0.23); BASOPHILS PERCENT AUTO 0 % (0-2); EOSINOPHILS ABSOLUTE AUTO 0.01 K/mm3 (0.00-0.68); EOSINOPHILS PERCENT AUTO 0 % (0-6); Hematocrit 39.9 % (33.0-51.0); IMMATURE GRAN ABSOLUTE AUTO 0.05 K/mm3 (0.00-0.10); IMMATURE GRAN PERCENT AUTO 1 % (0-1); LYMPHOCYTES ABSOLUTE AUTO 0.91 K/mm3 (0.84-5.20); LYMPHOCYTES PERCENT AUTO 9 % (21-46); MONOCYTES ABSOLUTE AUTO 0.34 K/mm3 (0.16-1.47); MONOCYTES PERCENT AUTO 3 % (4-13); Mean Corpuscular HGB 25.3 pg (26.0-34.0); Mean Corpuscular HGB Conc 30.1 g/dL (31.5-36.5); Mean Corpuscular Volume 84 fL (80-100); Mean Platelet Volume 11.1 fL (9.1-12.4); NEUTROPHILS ABSOLUTE AUTO 9.13 K/mm3 (1.96-9.15); NEUTROPHILS PERCENT AUTO 87 % (41-73); Platelet Count 144 K/mm3 (150-400); RDW Coefficient Variation 16.5 % (11.7-14.2); RDW Standard Deviation 50.3 fL (35.1-46.3); Red Blood Cell Count 4.74 M/mm3 (3.80-5.20); White Blood Cell Count 10.45 K/mm3 (4.00-11.30)
[2019-10-30 06:37] LABS: Alanine Aminotransfer (ALT/SGP 23 U/L (12-78); Albumin/Globulin Ratio 0.9 (0.8-1.8); Alk Phos 84 U/L (50-136); Anion Gap 4 mmol/L (6-16); Aspartate Aminotrans (AST/SGOT 16 U/L (12-37); Bilirubin, Total 0.4 mg/dL (0.1-1.0); Blood Urea Nitrogen 17 mg/dL (8-24); Bun/Creatinine Ratio 27.5 (12.0-20.0); CO2, Blood 27 mmol/L (21-32); Calcium, Blood 8.3 mg/dL (8.5-10.1); Chloride, Blood 108 mmol/L (98-108); Creatinine, Blood 0.62 mg/dL (0.40-1.00); Globulin, Blood 3.2 g/dL (2.2-4.0); Glomerular Filtration Rate >60 (60-); Glucose, Blood 125 mg/dL (70-99); Potassium, Blood 3.8 mmol/L (3.5-5.5); Sodium, Blood 139 mmol/L (136-145); Total Protein, Blood 6.2 g/dL (6.4-8.2)
--- NOTE | 2019-10-30 07:34 | NUR ---
SHIFT SUMMARY PT A&O; UNMOTIVATED; FAMILY AT BEDSIDE IN EVENING; PT C/O MEDICATION SCHEDULE NOT BEING OFTEN ENOUGH FOR CHRONIC PAIN; HEATING PAD IN PLACE FOR COMFORT MEASURES; O2 SATS >93 ON 3L NC; DENIES CHEST PAIN; PROVIDER CALLED @ 0500; NEW ORDER GIVEN TO DRAW BLOOD FROM MEDIPORT; PT STATES SHE CAN NOT HAVE HEPARIN; PT CURRENTLY SLEEPING; CALL LIGHT IN REACH; BED IN LOWEST POSITION; REPORT GIVEN TO DAY RN;
--- NOTE | 2019-10-30 08:47 | NUR ---
AM NOTE... ASSUMED CARE OF PT APROX 0700. PT IS A&Ox4 AND WAS ADMITTED FOR RESP FAILURE. PT IS CURRENTLY ON HER HOME DOSE OF O2 AT 2L NC.PT'S VS STABLE. PT HAS SOME EDEMA IN THE LEFT ARM THAT SHE STATES IS NOT NORMAL. PT DENIES PAIN TO THIS ARM. PT IS VERY LETHARGIC AND SLEEPY. PT HAS TRACE EDEMA TO HER BLE. L/S COARSE T/O DIM IN THE BASES. BT PRESENT AND NORMOACTIVE. ABD IS SOFT AND NONTENDER TO PALP. PT HAS MADE MULTIPLE STATMENTS SUCH : "I DON'T KNOW WHY I AM HERE, YOU GUYS AREN'T GIVING ME MY MEDS RIGHT!" PT HAS VERBALIZED TO STAFF THAT SHE WANTS TO GO HOME SO SHE CAN "TAKE MY MEDS RIGHT." CALL LIGHT IN REACH WILL CONTINUE TO MONITOR
[2019-10-30] MEDS ORDERED: FURO40 PO (14:29)
[2019-10-30] MEDS ORDERED: Lisinopril2.5 MG PO (14:33)
== END 2019-10-30 18:29 | disposition home or self-care (01) | DRG 917 ==
LOC: ER 05:55 → ICUW 10:09 → ICUE 10:09 → PCU 10-28 17:11
PROVIDERS: Emergency Medicine; Internal Medicine; Nurse Practitioner Acute Care; ADMIT Internal Medicine
PROC: 0BH17EZ Insertion of Endotracheal Airway into Trachea, Via Natural or Artificial Opening (ICD-10-PCS; principal; 2019-10-27)
PROC: 5A1945Z Respiratory Ventilation, 24-96 Consecutive Hours (ICD-10-PCS; 2019-10-27)
DX: T42.71XA Poisoning by unspecified antiepileptic and sedative-hypnotic drugs, accidental (unintentional), initial encounter (principal); J96.21 Acute and chronic respiratory failure with hypoxia; I48.20 Chronic atrial fibrillation, unspecified; I50.22 Chronic systolic (congestive) heart failure; J44.1 Chronic obstructive pulmonary disease with (acute) exacerbation; I11.0 Hypertensive heart disease with heart failure; I70.1 Atherosclerosis of renal artery; I25.10 Atherosclerotic heart disease of native coronary artery without angina pectoris; I25.5 Ischemic cardiomyopathy; Z95.810 Presence of automatic (implantable) cardiac defibrillator; F17.210 Nicotine dependence, cigarettes, uncomplicated; F41.9 Anxiety disorder, unspecified; M79.7 Fibromyalgia; R41.89 Other symptoms and signs involving cognitive functions and awareness; Z86.73 Personal history of transient ischemic attack (TIA), and cerebral infarction without residual deficits; G89.29 Other chronic pain; E11.9 Type 2 diabetes mellitus without complications; Z79.4 Long term (current) use of insulin
CPT/HCPCS: 0099U; 31500; 36415; 36680; 51702; 70450; 71045; 80053; 81001; 82803; 82947; 83605; 83735; 83880; 84145; 84484; 85025; 87040; 87070; 87081; 87205; 93005; 93010; 94002; 94640; 94760; 94762; 96361-59; 96365-59; 96366-59; 96367-59; 96375-59; 97162; 97166; 97535; 99291-25; 99292; A9270-GY; C9113; G0480; J0330; J0696; J2060; J2310; J2405; J2704; J2920; J3010; J7030; J7512

== ENCOUNTER 2019-11-20 00:06 | Day surgery (SDC) | payer MEDICARE, OTHER ==
[2019-11-20] MEDS ORDERED: [UNRECOGNIZED DRUG - OTHER] INH (16:47)
[2019-11-20] MEDS ORDERED: ALPR1 PO (16:48)
== END 2019-11-20 15:29 | disposition home or self-care (01) ==
LOC: ATC 00:06
DX: E87.79 Other fluid overload (principal); I11.0 Hypertensive heart disease with heart failure; E11.51 Type 2 diabetes mellitus with diabetic peripheral angiopathy without gangrene; I50.9 Heart failure, unspecified; J44.9 Chronic obstructive pulmonary disease, unspecified; I27.81 Cor pulmonale (chronic); I48.91 Unspecified atrial fibrillation; Z79.01 Long term (current) use of anticoagulants; I25.10 Atherosclerotic heart disease of native coronary artery without angina pectoris; E78.00 Pure hypercholesterolemia, unspecified; F17.210 Nicotine dependence, cigarettes, uncomplicated; Z79.4 Long term (current) use of insulin; Z79.899 Other long term (current) drug therapy; Z79.02 Long term (current) use of antithrombotics/antiplatelets; Z88.8 Allergy status to other drugs, medicaments and biological substances; Z88.1 Allergy status to other antibiotic agents; Z88.0 Allergy status to penicillin; Z88.2 Allergy status to sulfonamides; Z88.6 Allergy status to analgesic agent
CPT/HCPCS: 96374; J1940

== ENCOUNTER 2020-02-07 23:03 | Emergency (ER) | payer MEDICARE, OTHER ==
[~2020-02-07] VITALS: Ht 154.9 cm; Wt 68.0 kg
[~2020-02-07 23:03] MED LIST changes: +[UNRECOGNIZED DRUG - OTHER] INH
[2020-02-08 00:41] LABS: BASOPHILS ABSOLUTE AUTO 0.04 K/mm3 (0.00-0.23); BASOPHILS PERCENT AUTO 0 % (0-2); EOSINOPHILS PERCENT AUTO 1 % (0-6); Hematocrit 39.2 % (33.0-51.0); Hemoglobin 11.4 g/dL (11.5-16.0); IMMATURE GRAN ABSOLUTE AUTO 0.06 K/mm3 (0.00-0.10); IMMATURE GRAN PERCENT AUTO 1 % (0-1); LYMPHOCYTES ABSOLUTE AUTO 0.91 K/mm3 (0.84-5.20); LYMPHOCYTES PERCENT AUTO 8 % (21-46); MONOCYTES ABSOLUTE AUTO 0.58 K/mm3 (0.16-1.47); MONOCYTES PERCENT AUTO 5 % (4-13); Mean Corpuscular HGB 24.5 pg (26.0-34.0); Mean Corpuscular HGB Conc 29.1 g/dL (31.5-36.5); Mean Corpuscular Volume 84 fL (80-100); Mean Platelet Volume 10.8 fL (9.1-12.4); NEUTROPHILS ABSOLUTE AUTO 9.44 K/mm3 (1.96-9.15); NEUTROPHILS PERCENT AUTO 85 % (41-73); Platelet Count 124 K/mm3 (150-400); RDW Coefficient Variation 17.4 % (11.7-14.2); RDW Standard Deviation 53.8 fL (35.1-46.3); Red Blood Cell Count 4.65 M/mm3 (3.80-5.20); White Blood Cell Count 11.13 K/mm3 (4.00-11.30)
[2020-02-08 00:59] LABS: Alanine Aminotransfer (ALT/SGP 34 U/L (12-78); Albumin, Blood 3.5 g/dL (3.4-5.0); Alk Phos 117 U/L (50-136); Anion Gap 7 mmol/L (6-16); Aspartate Aminotrans (AST/SGOT 34 U/L (12-37); Bilirubin, Total 0.2 mg/dL (0.1-1.0); Blood Urea Nitrogen 17 mg/dL (8-24); CO2, Blood 29 mmol/L (21-32); Calcium, Blood 8.6 mg/dL (8.5-10.1); Chloride, Blood 107 mmol/L (98-108); Creatinine, Blood 0.95 mg/dL (0.40-1.00); Globulin, Blood 3.5 g/dL (2.2-4.0); Glomerular Filtration Rate >60 (60-); Glucose, Blood 134 mg/dL (70-99); Sodium, Blood 143 mmol/L (136-145); Troponin I <0.015 ng/mL (0.000-0.040)
[2020-02-08] MEDS ORDERED: NARCAN4 MG (01:32)
== END 2020-02-08 02:39 | disposition home or self-care (01) ==
LOC: ER 23:03
PROVIDERS: Emergency Medicine
DX: T40.601A Poisoning by unspecified narcotics, accidental (unintentional), initial encounter (principal); R51 Headache; R55 Syncope and collapse; R40.4 Transient alteration of awareness; I13.0 Hypertensive heart and chronic kidney disease with heart failure and stage 1 through stage 4 chronic kidney disease, or unspecified chronic kidney disease; E11.22 Type 2 diabetes mellitus with diabetic chronic kidney disease; N18.9 Chronic kidney disease, unspecified; I50.9 Heart failure, unspecified; J44.9 Chronic obstructive pulmonary disease, unspecified; I25.10 Atherosclerotic heart disease of native coronary artery without angina pectoris; I48.0 Paroxysmal atrial fibrillation; F17.200 Nicotine dependence, unspecified, uncomplicated; Z88.5 Allergy status to narcotic agent; Z91.018 Allergy to other foods; Z88.8 Allergy status to other drugs, medicaments and biological substances; Z88.0 Allergy status to penicillin; Z88.2 Allergy status to sulfonamides; Z79.899 Other long term (current) drug therapy; Z79.01 Long term (current) use of anticoagulants; Z79.4 Long term (current) use of insulin
CPT/HCPCS: 70450; 80053; 83880; 84484; 85025; 93005; 93010; 96374; 96375; 99284-25; J0780; J1200; J2765

== ENCOUNTER → 2020-12-02 | Outpatient (CLI) | payer MEDICARE, OTHER ==
[~2020-12-02] MED LIST changes: +NARCAN4 MG
[2020-12-02 19:39] LABS: U Amphetamine Screen Not Detected; U Barbituate Screen DETECTED; U Benzodiazapine Screen Not Detected; U Buprenorphine Screen Not Detected; U Cannabinoids Screen DETECTED; U Cocaine Screen Not Detected; U Methadone Screen Not Detected; U Methamphetamine Screen Not Detected; U Opiates Screen DETECTED; U Oxycodone Screen Not Detected; U Phencyclidine Screen Not Detected; U Propoxyphene Screen Not Detected
== END | disposition home or self-care (01) ==
LOC: LAB SHORT 18:40 → LAB 18:40
PROVIDERS: Internal Medicine Hematology & Oncology
DX: Z51.81 Encounter for therapeutic drug level monitoring (principal); Z79.899 Other long term (current) drug therapy
CPT/HCPCS: G0480

== ENCOUNTER → 2021-08-25 | Outpatient (CLI) | payer MEDICARE, OTHER ==
[2021-08-25 14:01] LABS: U Amphetamine Screen Not Detected; U Barbituate Screen DETECTED; U Benzodiazapine Screen Not Detected; U Buprenorphine Screen Not Detected; U Cannabinoids Screen DETECTED; U Cocaine Screen Not Detected; U Methadone Screen Not Detected; U Methamphetamine Screen Not Detected; U Phencyclidine Screen Not Detected
[2021-08-25 14:02] LABS: U Opiates Screen DETECTED; U Oxycodone Screen Not Detected; U Propoxyphene Screen Not Detected
== END | disposition home or self-care (01) ==
LOC: LAB 12:29 → LAB SHORT 12:29
PROVIDERS: Internal Medicine Hematology & Oncology
DX: Z51.81 Encounter for therapeutic drug level monitoring (principal); Z79.899 Other long term (current) drug therapy

== ENCOUNTER 2021-09-17 16:53 | Emergency (ER) | payer MEDICARE, OTHER ==
[~2021-09-17] VITALS: Ht 165.1 cm; Wt 56.7 kg
[~2021-09-17 16:53] MED LIST changes: +HUMALOG100 UNIT/1 SC; +XOPENEX HFA15 GM INH
[2021-09-17] MEDS ORDERED: ONDA4ODT MM (18:39)
[2021-09-17] MEDS ORDERED: PSEUDOEPHEDRINE30 M1 PO (18:39)
[2021-09-17] MEDS ORDERED: Mucinex600 MG PO (18:39)
== END 2021-09-17 19:10 | disposition home or self-care (01) ==
LOC: ER 16:53
DX: U07.1 COVID-19 (principal); H93.8X1 Other specified disorders of right ear; I11.0 Hypertensive heart disease with heart failure; I50.9 Heart failure, unspecified; J44.9 Chronic obstructive pulmonary disease, unspecified; I25.10 Atherosclerotic heart disease of native coronary artery without angina pectoris; I48.0 Paroxysmal atrial fibrillation; E78.00 Pure hypercholesterolemia, unspecified; E11.9 Type 2 diabetes mellitus without complications; G47.33 Obstructive sleep apnea (adult) (pediatric); G43.909 Migraine, unspecified, not intractable, without status migrainosus; Z86.73 Personal history of transient ischemic attack (TIA), and cerebral infarction without residual deficits; Z88.5 Allergy status to narcotic agent; Z88.8 Allergy status to other drugs, medicaments and biological substances; Z91.018 Allergy to other foods; Z88.1 Allergy status to other antibiotic agents; Z88.2 Allergy status to sulfonamides; Z91.010 Allergy to peanuts; Z88.0 Allergy status to penicillin; Z79.899 Other long term (current) drug therapy; F17.210 Nicotine dependence, cigarettes, uncomplicated
CPT/HCPCS: 99284

== ENCOUNTER 2021-09-21 19:27 | Inpatient (IN) | payer MEDICARE, OTHER ==
[~2021-09-21] VITALS: Ht 167.6 cm; Wt 66.5 kg
[~2021-09-21 19:27] MED LIST changes: +PSEUDOEPHEDRINE30 M1 PO
[2021-09-21 20:06] LABS: BASOPHILS ABSOLUTE AUTO 0.02 K/mm3 (0.00-0.23); BASOPHILS PERCENT AUTO 0 % (0-2); EOSINOPHILS PERCENT AUTO 0 % (0-6); Hematocrit 39.5 % (33.0-51.0); Hemoglobin 12.1 g/dL (11.5-16.0); IMMATURE GRAN ABSOLUTE AUTO 0.07 K/mm3 (0.00-0.10); IMMATURE GRAN PERCENT AUTO 1 % (0-1); LYMPHOCYTES ABSOLUTE AUTO 0.71 K/mm3 (0.84-5.20); LYMPHOCYTES PERCENT AUTO 7 % (21-46); MONOCYTES ABSOLUTE AUTO 0.27 K/mm3 (0.16-1.47); MONOCYTES PERCENT AUTO 3 % (4-13); Mean Corpuscular HGB 22.3 pg (26.0-34.0); Mean Corpuscular HGB Conc 30.6 g/dL (31.5-36.5); Mean Corpuscular Volume 73 fL (80-100); NEUTROPHILS ABSOLUTE AUTO 8.83 K/mm3 (1.96-9.15); NEUTROPHILS PERCENT AUTO 89 % (41-73); NRBC ABSOLUTE 0.02 K/mm3 (0.00-0.02); NRBC Auto 0.2 /100 WBC (0.0-0.2); Platelet Count 159 K/mm3 (150-400); RDW Coefficient Variation 20.5 % (11.7-14.2); RDW Standard Deviation 51.9 fL (35.1-46.3); Red Blood Cell Count 5.42 M/mm3 (3.80-5.20)
[2021-09-21 20:11] LABS: Base Excess Venous -5.2 mmol/L; Bicarbonate Venous 20.9 mmol/L (24.0-30.0); PCO2 Venous 31.4 mmHg (38-42); PO2 Venous 91.6 mmHg (38-42)
[2021-09-21 20:31] LABS: Alanine Aminotransfer (ALT/SGP 23 U/L (12-78); Albumin, Blood 2.5 g/dL (3.4-5.0); Albumin/Globulin Ratio 0.6 (0.8-1.8); Alk Phos 117 U/L (50-136); Anion Gap 12 mmol/L (6-16); Aspartate Aminotrans (AST/SGOT 60 U/L (12-37); Bilirubin, Total 0.4 mg/dL (0.1-1.0); Blood Urea Nitrogen 9 mg/dL (8-24); Bun/Creatinine Ratio 11.7 (12.0-20.0); CO2, Blood 19 mmol/L (21-32); Calcium, Blood 8.4 mg/dL (8.5-10.1); Chloride, Blood 111 mmol/L (98-108); Creatinine, Blood 0.77 mg/dL (0.40-1.00); Glomerular Filtration Rate >60 (60-); Glucose, Blood 142 mg/dL (70-99); Sodium, Blood 142 mmol/L (136-145); Total Protein, Blood 6.5 g/dL (6.4-8.2); Troponin I <0.015 ng/mL (0.000-0.040)
[2021-09-21 20:39] LABS: C-REACTIVE PROTEIN, EXT RANGE >19.000 mg/dL (0.000-0.300)
[2021-09-21 22:42] LABS: PCO2 Arterial 32.9 mmHg (35-45); PO2 Arterial 54.7 mmHg (80-100)
[2021-09-22 06:46] LABS: Anion Gap 9 mmol/L (6-16); Blood Urea Nitrogen 12 mg/dL (8-24); Bun/Creatinine Ratio 16.4 (12.0-20.0); CO2, Blood 22 mmol/L (21-32); Calcium, Blood 8.2 mg/dL (8.5-10.1); Chloride, Blood 110 mmol/L (98-108); Creatinine, Blood 0.73 mg/dL (0.40-1.00); Glomerular Filtration Rate >60 (60-); Glucose, Blood 133 mg/dL (70-99); Potassium, Blood 4.1 mmol/L (3.5-5.5); Sodium, Blood 141 mmol/L (136-145)
[2021-09-22 07:02] LABS: Hematocrit 37.5 % (33.0-51.0); Hemoglobin 11.2 g/dL (11.5-16.0); Mean Corpuscular HGB 22.2 pg (26.0-34.0); Mean Corpuscular HGB Conc 29.9 g/dL (31.5-36.5); Mean Corpuscular Volume 74 fL (80-100); Platelet Count 155 K/mm3 (150-400); RDW Coefficient Variation 20.2 % (11.7-14.2); Red Blood Cell Count 5.05 M/mm3 (3.80-5.20); White Blood Cell Count 10.48 K/mm3 (4.00-11.30)
[2021-09-22] MEDS ORDERED: Robaxin750 MG PO (15:31)
[2021-09-22] MEDS ORDERED: PREG200 PO (15:34)
[2021-09-22] MEDS ORDERED: PANT40 PO (15:35)
[2021-09-22] MEDS ORDERED: METO10 PO (15:36)
--- NOTE | 2021-09-22 17:33 | NUR ---
PCU ADMIT / SHIFT SUMMARY PT BROUGHT TO PCU3 BY KUNAL FROM ER AT APPROXIMATELY 1500. PT SLIDE OVER FROM [facility] TO U BY FOUR STAFF MEMBERS. PT IS A&OX4. ON V60 HI-MUNIR NC AT 45L 60%. MONITORS SHOWING NSR IN THE 70S.
[2021-09-22 23:48] LABS: Source, Urine Catheter
[2021-09-22 23:58] LABS: Appearance, Urine Hazy (Clear); Bilirubin, Urine Neg (Neg); Blood, Urine 4+ (Neg); Color, Urine Yellow (P-Yellow); Glucose Qualitative, Urine Neg (Neg); Ketones, Urine Neg (Neg); Leukocyte Esterase, Urine 3+ (Neg); Nitrite, Urine Neg (Neg); Protein, Urine 2+ (Neg); Urobilinogen, Urine NORM (Normal); pH, Urine 6.5 (5.0-8.0)
[2021-09-23 00:55] LABS: Bacteria Many /hpf; Squamous Epithelial Cells Mod /hpf (Few)
[2021-09-23 00:56] LABS: Amorphous Light (0-Heavy); Yeast/Fungi Urine Few /hpf
--- NOTE | 2021-09-23 05:31 | NUR ---
SHIFT SUMMARY PT RESTED WELL THROUGH THE NIGHT. ALERT AND ORIENTED, ABLE TO MAKE NEEDS KNOWN. COOPERATIVE WITH PLAN OF CARE. SATS >90% ON HEATED HIGH FLOW - HAD TO INCREASE SETTINGS OVER NIGHT - NOW 50L/75% FIO2. TELE READS NSR -RATE 70. PT DOES DESAT VERY QUICKLY WITH ANY SORT OF ACTIVITY. NONPRODUCTIVE COUGH - BUT VIOLENTLY COUGHING, FORCING HERSELF TO DRY HEAVE. NAUSEA AND COUGH MEDS GIVEN. DRAKE PLACED TO HELP MINIMIZE DESATURATIONS - UOP 500. NO BM. VSS. CALL LIGHT WITHIN REACH, BED IN LOWEST POSITION. WILL CONTINUE TO MONITOR.
--- NOTE | 2021-09-23 18:17 | NUR ---
SHIFT SUMMARY PT IS ALERT AND ORIENTED X 4 BUT HAS BEEN LETHARGIC T/O SHIFT. SHE HAS APPEARED TO BE SLEEPING FOR MAJORITY OF SHIFT BUT EASILY AWAKES TO VERBAL STIMULI. SHE STATED THAT SHE "JUST FEELS LOUSY." SPO2 RANGES FROM 88-95% VIA HHNC, SETTINGS HAVE REMAINED AT 50L, 75% FIO2. WHEN PT IS SLEEPING SHE IS A MOUTH BREATHER AND WILL DESATURATE TO HIGH 80'S. THIS AM TEMPERATURE WAS 99 BUT AT 1600 VITALS DECREASED TO 97. TELEMETRY MONITORIN IN PLACE, PT IS PACED RANGING IN 70'S PER TELE REPORT. PACER IS LOCATED IN LEFT UPPER CHEST WALL. PT REPORTED THAT SHE LIVES AT 7/10 PAIN IN HER BACK THAT WILL SHOOT SHART PAIN DOWN HER LEFT LEG, SHE REPORTED THIS IS CHRONIC PAIN. ACHS CBG MONITORING PER ORDERS, PT DID NOT REQUIRE COVERAGE DURING SHIFT. DRAKE CATHETER IS PLACED AND DRAINING CLEAR/LIGHT YELLOW OUTPUT. IV IN LEFT AC IS SALINE LOCKED. PT WAS NAUSEOUS THIS AM DUE TO HACKING COUGH, MEDICATED PER EMAR. THIS EVENING PT REPORTED NAUSEA AND WAS MEDICATED PER EMAR. PT ALSO REPORTED FEELING ANXIETY AND STATED SHE TAKES XANAX AT HOME. DR. HOWARD CONSULTED BY THIS NURSE AND ORDER FOR XANAX GIVEN. PT REPORTED FEELING "MUCH MORE RELAXED." THIS NURSE AND REHANA CHIRINOS PROVIDED PT BEDBATH THIS AFTERNOON. NO OTHER ACUTE CHANGES NOTED. PT NOW APPEARS TO BE SLEEPING. BED IN LOW/LOCK, CALL LIGHT IN REACH. WILL CONTINUE TO MONITOR UNTIL REPORT GIVEN.
--- NOTE | 2021-09-24 05:46 | NUR ---
shift summary pt rested better through tonight vs the previous night. alert and oriented, able to make needs known. cooperative with plan of care. sats >90% on hfnc, 50L/85% fio2 - o2 needs increased as night went on. tele reads aflutter - rate 70. pt's nausea/coughing much better controlled tonight. pain x2 - see emar. cuenca draining to gravity, evelia care performed - adquate uop. vss. call light within reach, bed in lowest position. will continue to monitor.
--- NOTE | 2021-09-24 17:28 | NUR ---
SHIFT SUMMARY PT ALERT AND ORIENTED. PT RESTING MOST OF SHIFT. BP STABLE. HR PACED AT 70. O2 SATS HAVE REMAINED ABOVE 90% ON HIGH FLOW CANNULA AT 60L AND 75% FIO2 AT THIS TIME. PT HAS NONPRODUCTIVE COUGH AND MEDICATED PER EMAR. PT COMPLAINED OF LEE AND BACK PAIN THIS SHIFT. HEATING PAD APPLIED AND PT MEDICATED PER ORDERS NEEDED. PT ABLE TO REPOSITION HERSELF IN BED. DRAKE PATENT AND DRAINING. WILL CONTINUE TO MONITOR AND REPORT TO ONCOMING RN.
--- NOTE | 2021-09-25 04:07 | NUR ---
SHIFT SUMMARY PT IS ALERT AND ORIENTED. SHE HAS BEEN LETHARGIC T/O THE SHIFT. SHE HAS BEEN NAUSEOUS WHEN COUGHING, SHE REPORTS FEELING "REALLY SICK" AND IN PAIN. CALLED DR FLOREZ FOR NEW MED ORDERS. VITALS HAVE BEEN STABLE. PT HAS ALSO HAS HAD A FEW DESAT EPISODES WITH SATS LOW 81%. HFT IS CURRENTLY AT 65L 80% FIO2 AND WHEN TURNED TO THE RIGHT SIDE HER SATS ARE ABOVE 90%. DRAKE IN PLACE AND DRAINING TO GRAVITY. CALL LIGHT IS WITHIN REACH.
[2021-09-25 08:18] LABS: Anion Gap 13 mmol/L (6-16); Blood Urea Nitrogen 31 mg/dL (8-24); Bun/Creatinine Ratio 36.3 (12.0-20.0); CO2, Blood 30 mmol/L (21-32); Calcium, Blood 8.4 mg/dL (8.5-10.1); Chloride, Blood 91 mmol/L (98-108); Creatinine, Blood 0.85 mg/dL (0.40-1.00); Glomerular Filtration Rate >60 (60-); Glucose, Blood 107 mg/dL (70-99); Potassium, Blood 3.1 mmol/L (3.5-5.5); Sodium, Blood 134 mmol/L (136-145)
--- NOTE | 2021-09-25 17:38 | NUR ---
SHIFT SUMMARY PT ALERT AND ORIENTED. HR PACED AT 70. BP STABLE. PT DID NOT TOLERATE HFT TODAY AND TRANSITIONED TO CPAP OF 10 AND 65% WITH SATS REMAINING ABOVE 90%. DRAKE PATENT AND DRAINING. NO BM THIS SHIFT. PT REPOSITOING HERSELF INDEPENDENTLY. PT DENIES ANY PAIN THIS SHIFT, BUT STATES SHE " FEELS LIKE CRAP". PT MEDICATED FOR NAUSEA THIS AM THAT HAS SINCE SUBSIDED. WILL CONTINUE TO MONITOR AND REPORT TO ONCOMING RN.
--- NOTE | 2021-09-26 05:11 | NUR ---
SHIFT SUMMARY: PATIENT A&O X3, LETHARGIC, AND HAS A HACKING COUGH. ROBITUSSIN CONTRIBUTES TO NAUSEA SO GAVE TESSALON FOR COUGH. PATIENT SUSTAINED O2 SATS >95% ON 50L AIRVO. NO ADVERSE EVENTS THIS SHIFT AND VS STABLE. WILL REPORT TO DAY RN.
[2021-09-26 05:15] LABS: Anion Gap 8 mmol/L (6-16); Blood Urea Nitrogen 40 mg/dL (8-24); Bun/Creatinine Ratio 47.2 (12.0-20.0); CO2, Blood 37 mmol/L (21-32); Calcium, Blood 8.7 mg/dL (8.5-10.1); Chloride, Blood 87 mmol/L (98-108); Creatinine, Blood 0.85 mg/dL (0.40-1.00); Glomerular Filtration Rate >60 (60-); Glucose, Blood 127 mg/dL (70-99); Potassium, Blood 2.4 mmol/L (3.5-5.5); Sodium, Blood 132 mmol/L (136-145)
--- NOTE | 2021-09-26 05:23 | NUR ---
CRITICAL VALUE: RECIEVED CALL FROM THANH IN LAB. PATIENT'S POTASSIUM IS DOWN TO 2.4. PLACED CALL TO ON-CALL MD AND AWAIT ORDERS.
--- NOTE | 2021-09-26 17:39 | NUR ---
SHIFT SUMMARY; ASSUMED CARE AT 0700, LETHARGIC IN BED, AWAKES TO VERBAL STIMULI, SLOW TO ANSWER QUESTIONS BUT ANSWERS APPROPRIATLY. AIR VO IN PLACE 80% 55L. REFUSED BREAKFAST AND LUNCH. REFUSED TO SIT UP OR GET OUT OF BED TODAY. REFUSED AM PO MEDS. STATES "I DON'T FEEL GOOD". RISKS/BENEFITS EXPLAINED WITH CLEAR UNDERSTANDING. AFTERNOON SPONGE BATH BY [employer] DEPARTMENT MANAGER WITH GOWN CHANGE AND ORAL CARE. MEDIPORT ACCESSED WITH TKO, VSS, OX SAT 94-97%. DRAKE IN PLACE DRAINING CLEAR YELLOW URINE TO GRAVITY. NO ACUTE MEDICAL CHANGES ON SHIFT. WILL CONTINUE TO MONITOR AND TREAT UNTIL CHANGE OF SHIFT.
[2021-09-27 04:12] LABS: BASOPHILS ABSOLUTE AUTO 0.04 K/mm3 (0.00-0.23); BASOPHILS PERCENT AUTO 0 % (0-2); EOSINOPHILS PERCENT AUTO 0 % (0-6); Hematocrit 43.1 % (33.0-51.0); Hemoglobin 13.3 g/dL (11.5-16.0); IMMATURE GRAN ABSOLUTE AUTO 0.11 K/mm3 (0.00-0.10); IMMATURE GRAN PERCENT AUTO 1 % (0-1); LYMPHOCYTES ABSOLUTE AUTO 0.71 K/mm3 (0.84-5.20); LYMPHOCYTES PERCENT AUTO 4 % (21-46); MONOCYTES ABSOLUTE AUTO 0.31 K/mm3 (0.16-1.47); MONOCYTES PERCENT AUTO 2 % (4-13); Mean Corpuscular HGB 22.1 pg (26.0-34.0); Mean Corpuscular HGB Conc 30.9 g/dL (31.5-36.5); Mean Corpuscular Volume 72 fL (80-100); NEUTROPHILS ABSOLUTE AUTO 15.06 K/mm3 (1.96-9.15); NEUTROPHILS PERCENT AUTO 93 % (41-73); Platelet Count 338 K/mm3 (150-400); RDW Coefficient Variation 20.1 % (11.7-14.2); RDW Standard Deviation 48.4 fL (35.1-46.3); Red Blood Cell Count 6.02 M/mm3 (3.80-5.20); White Blood Cell Count 16.23 K/mm3 (4.00-11.30)
[2021-09-27 04:30] LABS: Alanine Aminotransfer (ALT/SGP 98 U/L (12-78); Albumin, Blood 2.1 g/dL (3.4-5.0); Albumin/Globulin Ratio 0.4 (0.8-1.8); Alk Phos 241 U/L (50-136); Anion Gap 8 mmol/L (6-16); Aspartate Aminotrans (AST/SGOT 119 U/L (12-37); Bilirubin, Total 1.5 mg/dL (0.1-1.0); Blood Urea Nitrogen 35 mg/dL (8-24); Bun/Creatinine Ratio 48.9 (12.0-20.0); CO2, Blood 35 mmol/L (21-32); Calcium, Blood 9.2 mg/dL (8.5-10.1); Chloride, Blood 86 mmol/L (98-108); Creatinine, Blood 0.72 mg/dL (0.40-1.00); Globulin, Blood 5.5 g/dL (2.2-4.0); Glomerular Filtration Rate >60 (60-); Glucose, Blood 162 mg/dL (70-99); Potassium, Blood 3.2 mmol/L (3.5-5.5); Sodium, Blood 129 mmol/L (136-145); Total Protein, Blood 7.6 g/dL (6.4-8.2)
--- NOTE | 2021-09-27 05:15 | NUR ---
SHIFT SUMMARY: PATIENT ORIENTED TO SELF AND FOLLOWING DIRECTIONS, IS PALE AND LETHARGIC, MOANING, AND RESTLESS. PATIENT STRUGGLED TO MAINTAIN O2 SATS >86% T/O SECOND HALF OF SHIFT DESPITE INCREASING AIRVO. AT 0450 PATIENT WAS PRONED AND HAS MAINTAINED O2 SATS IN LOW 90S ON 65L AND 90% FOR THE PAST HALF HOUR AT THE TIME OF THIS NOTE. NOELLE HAS GOOD OUTPUT, NS RUNNING TKO. WILL CONTINUE TO MONITOR AND REPORT TO DAY RN.
--- NOTE | 2021-09-27 18:20 | NUR ---
PT SUMMARY: PT REMAINS SOB MOSTLY WITH EXERTION ON AIRVO 65L 90% CURRENTLY DESATS TO 88% WAS TITRATED DOWN TO 50L BY RT AND PT DESATS TO 82-87% AND WAS TURNED BACK UP TO 65L. SATS NOW KEPT ABOVE 90%. LUNGS DIMINISHED ALL THROUGH OUT. PT HAS BEEN LETHARGIC AND WEAK BUT IS ABLE TO MOVE IN BED INDEPENDENTLY AND CHANGE POSITION. VITALS HAS BEEN STABLE. TOOK MEDS WHOLE WITH WATER THIS MORNING WITH NO ISSUES, HAS BEEN EATING MEALS ABOUT 50%, REQUESTED POPSICLE THIS AFTERNOON. PAIN MEDS GIVEN X1 FOR BACK PAIN DOSE CHANGED TO 5MG AND PT WAS UPSET ABOUT IT, BUT HAS BEEN EFFECTIVE. DRAKE DRAINING VIA GRAVITY. [employer] ACCESSED RUNNING TKO. NO OTHER ISSUES REPORTED, PT ABLE TO MAKE NEEDS KNOWN, WILL REPORT TO ONCOMING SHIFT
[2021-09-28 04:13] LABS: Hematocrit 43.3 % (33.0-51.0); Hemoglobin 13.2 g/dL (11.5-16.0); Mean Corpuscular HGB 21.9 pg (26.0-34.0); Mean Corpuscular HGB Conc 30.5 g/dL (31.5-36.5); Mean Corpuscular Volume 72 fL (80-100); Platelet Count 400 K/mm3 (150-400); RDW Coefficient Variation 20.1 % (11.7-14.2); RDW Standard Deviation 48.4 fL (35.1-46.3); Red Blood Cell Count 6.04 M/mm3 (3.80-5.20)
[2021-09-28 04:16] LABS: BASOPHILS ABSOLUTE AUTO 0.04 K/mm3 (0.00-0.23); BASOPHILS PERCENT AUTO 0 % (0-2); EOSINOPHILS ABSOLUTE AUTO 0.04 K/mm3 (0.00-0.68); EOSINOPHILS PERCENT AUTO 0 % (0-6); IMMATURE GRAN ABSOLUTE AUTO 0.22 K/mm3 (0.00-0.10); IMMATURE GRAN PERCENT AUTO 1 % (0-1); LYMPHOCYTES ABSOLUTE AUTO 0.84 K/mm3 (0.84-5.20); LYMPHOCYTES PERCENT AUTO 4 % (21-46); MONOCYTES ABSOLUTE AUTO 0.34 K/mm3 (0.16-1.47); MONOCYTES PERCENT AUTO 2 % (4-13); NEUTROPHILS ABSOLUTE AUTO 17.65 K/mm3 (1.96-9.15); NEUTROPHILS PERCENT AUTO 92 % (41-73); White Blood Cell Count 19.13 K/mm3 (4.00-11.30)
[2021-09-28 04:29] LABS: Anion Gap 9 mmol/L (6-16); Blood Urea Nitrogen 47 mg/dL (8-24); Bun/Creatinine Ratio 60.3 (12.0-20.0); CO2, Blood 34 mmol/L (21-32); Calcium, Blood 9.3 mg/dL (8.5-10.1); Chloride, Blood 84 mmol/L (98-108); Creatinine, Blood 0.78 mg/dL (0.40-1.00); Glomerular Filtration Rate >60 (60-); Glucose, Blood 137 mg/dL (70-99); Potassium, Blood 3.6 mmol/L (3.5-5.5); Sodium, Blood 127 mmol/L (136-145)
--- NOTE | 2021-09-28 06:15 | NUR ---
SHIFT SUMMARY: PATIENT IS VERY WEAK, LETHARGIC, AND COMMUNICATES IN SOFT MOANS. LESS RESTLESS BUT MORE LETHARGIC THAN YESTERDAY. TRANSITIONED FROM AIRVO TO CPAP AND HAS MAINTAINED >92% O2 SATS ON CPAP. CAREGIVER CATHERINE CALL AT 2345 FOR AN UPDATE AND PLANS TO COME IN DURING VISITING HOURS. DISCUSSED SODIUM LEVELS TRENDING DOWN WITH DR. GUZMAN, ADVISED TO HAVE DAY MD ADDRESS. WILL CONTINUE TO MONITOR AND REPORT TO ONCOMING RN.
--- NOTE | 2021-09-28 17:48 | NUR ---
PT SUMMARY: NO ACUTE CHANGE. VITALS HRR UNCHANGED PACED/AFLUTTER AT 70'S, PT DENIES CHEST PAIN. WAS ABLE TO TITRATE PT DOWN TO 55L 80% FIO2 ON HEATED HI MUNIR SPO2 NOW KEPT ABOVE 92%, PT DESATS TO 88% WITH EXERTION, RECOVERS QUICK. PT IN GOOD SPIRIT TODAY EATING AND DRINKING ADEQUATELY, RECEIVED A BED BATH TODAY AND HAD A GOOD RESULT FOR A BOWEL MOVEMENT. PT HAS BEEN MOVING AND REPOSITIONING SELF IN BED WITH NO ISSUES, CALLS APPROPRIATELY. LASIX WAS CUT DOWN TO 20MG/DAY PER PROVIDER DUE TO HYPONATREMIA. BP SYSTOLIC 115-130'S. PT DENIES ANY PAIN FOR THE SHIFT, NO OTHER ISSUES REPORTED, [facility] RUNNING NOELLE ALVARENGA DRAINING PATENT VIA GRAVITY. WILL REPORT TO ONCOMING SHIFT
[2021-09-29 03:50] LABS: BASOPHILS ABSOLUTE AUTO 0.03 K/mm3 (0.00-0.23); BASOPHILS PERCENT AUTO 0 % (0-2); EOSINOPHILS ABSOLUTE AUTO 0.05 K/mm3 (0.00-0.68); EOSINOPHILS PERCENT AUTO 0 % (0-6); Hematocrit 43.6 % (33.0-51.0); Hemoglobin 13.2 g/dL (11.5-16.0); IMMATURE GRAN ABSOLUTE AUTO 0.19 K/mm3 (0.00-0.10); IMMATURE GRAN PERCENT AUTO 1 % (0-1); LYMPHOCYTES PERCENT AUTO 4 % (21-46); MONOCYTES ABSOLUTE AUTO 0.42 K/mm3 (0.16-1.47); MONOCYTES PERCENT AUTO 2 % (4-13); Mean Corpuscular HGB 22.1 pg (26.0-34.0); Mean Corpuscular HGB Conc 30.3 g/dL (31.5-36.5); Mean Corpuscular Volume 73 fL (80-100); NEUTROPHILS ABSOLUTE AUTO 15.87 K/mm3 (1.96-9.15); NEUTROPHILS PERCENT AUTO 92 % (41-73); Platelet Count 373 K/mm3 (150-400); RDW Coefficient Variation 20.3 % (11.7-14.2); RDW Standard Deviation 49.2 fL (35.1-46.3); Red Blood Cell Count 5.98 M/mm3 (3.80-5.20); White Blood Cell Count 17.26 K/mm3 (4.00-11.30)
[2021-09-29 03:51] LABS: Mean Platelet Volume 11.2 fL (9.1-12.4)
[2021-09-29 04:26] LABS: Alanine Aminotransfer (ALT/SGP 131 U/L (12-78); Albumin, Blood 2.1 g/dL (3.4-5.0); Albumin/Globulin Ratio 0.4 (0.8-1.8); Alk Phos 253 U/L (50-136); Anion Gap 9 mmol/L (6-16); Aspartate Aminotrans (AST/SGOT 188 U/L (12-37); Blood Urea Nitrogen 39 mg/dL (8-24); Bun/Creatinine Ratio 59.7 (12.0-20.0); CO2, Blood 33 mmol/L (21-32); Calcium, Blood 8.7 mg/dL (8.5-10.1); Chloride, Blood 87 mmol/L (98-108); Creatinine, Blood 0.65 mg/dL (0.40-1.00); Globulin, Blood 5.1 g/dL (2.2-4.0); Glomerular Filtration Rate >60 (60-); Glucose, Blood 130 mg/dL (70-99); Sodium, Blood 129 mmol/L (136-145); Total Protein, Blood 7.2 g/dL (6.4-8.2)
--- NOTE | 2021-09-29 06:08 | NUR ---
SHIFT SUMMARY NO ACUTE EVENS THIS SHIFT. PT ALERT AND ORIENTED X4. ON CPAP 10 80% FIO2 WHILE SLEEPING, AIRVO 55L 80% FIO2 WHILE AWAKE. WAS STARTING TO DESAT TO MID 80'S AND FEEL SOB TOWARDS MIDNIGHT ON AIRVO. SATS BETTER WHILE PRONE OR ON SIDE. WITH CPAP ON MAINTAINS SATS OVER 94%. DRAKE IN PLACE DRAINING DADNRE COLORED URINE TO GRAVITY. MEDIPORT TKO RUNNING AT 10ML/HR. NO C/O PAIN OR DISCOMFORT THIS SHIFT. IN BED SLEEPING WITH CALL ALARM AT SIDE. WILL CONTINUE TO MONITOR UNTIL REPORT GIVEN TO DAYSHIFT RN
--- NOTE | 2021-09-29 17:49 | NUR ---
SHIFT SUMMARY PT ALERT AND ORIENTED X 4. DROWSY DURING SHIFT. REPORTS PAIN IN BACK, 04/26. MEDICATED, SEE EMAR. PT REPORTS RELIEF. HR STABLE. BP STABLE. OXYGEN SATURATION MAINTAINED ABOVE 92% ON AIRVO AT 60 L AND 70% FIO2. PT ABLE TO TURN SELF IN BED. PT'S DRAKE BEGAN LEAKING IN BRIEF. CHECKED FOR 10 ML IN BALLOON, ATTEMPTED TO IRRIGATE WITH STERILE WATER. UNABLE TO DO SO. DRAKE REMOVED. NEW DRAKE PLACED BY STUDENT RN WITH CLINICAL INSTRUCTOR IN ROOM. DRAKE PATENT AND DRAINING TO GRAVITY. NO CP OR PRESSURE. WILL CONT TO MONITOR UNTIL RPEORT GIVEN TO NIGHTSHIFT RN.
--- NOTE | 2021-09-30 05:15 | NUR ---
SHIFT SUMMARY PT ALERT AND ORIENTED X4. LETHARGIC. HR STABLE, BP STABLE. ON 60L 70% FIO2 WHILE AWAKE, AND CPAP WHILE ASLEEP. MAINTAINING SATS OVER 92%. PT CHANGES POSITIONS ON HER OWN, ALTERNATES BETWEEN HALF PRONING, ON SIDE, AND ON BACK. C/O BACK PAIN 9/10 RELIEVED PER EMAR. DRAKE IN PLACE DRAINING DANDRE COLORED URINE TO GRAVITY. IN BED SLEEPING WITH CALL ALARM AT SIDE
--- NOTE | 2021-09-30 17:28 | NUR ---
SHITF SUMMARY PATIENT IS A/OX4, BUT VERY SLEEPY TODAY. FALT AFFECT. PATIENT SLEPT OFF AND ON THROUGHOUT THE DAY. PATIENT LATEST BP IS SOFT. VSS. SPO2 >90% ON AIRVO 60L 70%. DRAKE CATH IN PLACE DRAINING WITH GRAVITY, DANDRE COLORATION. PATIENT REPOSITIONS INDEPENDTLY.NO ACUTE CHANGES THIS SHIFT. CALL LIGHT WITHIN REACH AND BED IN LOWEST POSITION. WILL CONTNUE TO MONITOR AND PROVIDE CARE UNTIL HAND OFF WITH NEXT SHIFT.
[2021-10-01 04:48] LABS: Hematocrit 43.8 % (33.0-51.0); Hemoglobin 13.2 g/dL (11.5-16.0); Mean Corpuscular HGB 22.1 pg (26.0-34.0); Mean Corpuscular HGB Conc 30.1 g/dL (31.5-36.5); Mean Corpuscular Volume 73 fL (80-100); Platelet Count 407 K/mm3 (150-400); RDW Coefficient Variation 20.3 % (11.7-14.2); RDW Standard Deviation 49.3 fL (35.1-46.3); Red Blood Cell Count 5.97 M/mm3 (3.80-5.20); White Blood Cell Count 19.67 K/mm3 (4.00-11.30)
[2021-10-01 04:54] LABS: Mean Platelet Volume 11.5 fL (9.1-12.4)
[2021-10-01 05:05] LABS: Alanine Aminotransfer (ALT/SGP 118 U/L (12-78); Albumin, Blood 2.2 g/dL (3.4-5.0); Albumin/Globulin Ratio 0.4 (0.8-1.8); Alk Phos 206 U/L (50-136); Anion Gap 11 mmol/L (6-16); Aspartate Aminotrans (AST/SGOT 97 U/L (12-37); Bilirubin, Total 0.7 mg/dL (0.1-1.0); Blood Urea Nitrogen 52 mg/dL (8-24); Bun/Creatinine Ratio 61.2 (12.0-20.0); CO2, Blood 28 mmol/L (21-32); Calcium, Blood 8.6 mg/dL (8.5-10.1); Chloride, Blood 88 mmol/L (98-108); Creatinine, Blood 0.85 mg/dL (0.40-1.00); Ferritin, Serum 474 ng/mL (8-252); Globulin, Blood 5.3 g/dL (2.2-4.0); Glomerular Filtration Rate >60 (60-); Glucose, Blood 190 mg/dL (70-99); Potassium, Blood 3.4 mmol/L (3.5-5.5); Sodium, Blood 127 mmol/L (136-145); Total Protein, Blood 7.5 g/dL (6.4-8.2)
--- NOTE | 2021-10-01 05:43 | NUR ---
END OF SHIFT SUMMARY: PATIENT HAS BEEN ON AIRVO WITH SOME IMPROVEMENT ON THE FIO2. ENCOURAGED REPOSITIONING AND PRONING, PATIENT TOLERATED SIDE LAYING THROUGHOUT THE NIGHT. WAS ABLE TO EAT SNAKCS T/O THE NIGHT. DENIES CHEST PAIN. PAIN MEDICATION CURRENTLY IS BARELY COVERING PAIN ENDORSED BY THE PATIENT WILL INFORM ONCOMING RN, PROVIDER HAD JUST DECREASED PAIN MEDS ON 09/30/21. STILL BEDREST, SLEEPY BUT WAS ABLE TO CONVERSATE BETTER, SPO2 HAS BEEN>94 % THROUGH THE SHIFT. DRAKE DRAINING TO GRAVITY. GENERALLY WEAK, BLOOD PRESSURE HAS BEEN 110'S DURING SHIFT, HELD METOPROLOL, PATIENT DID NOT INCREASE AND RATE HAS BEEN CONTROLLED. PACEMAKER, PACED AFLUTTER. MEDIPORT FLUID RATE OF 15ML/HR. WILL CONTINUE TO MONITOR
--- NOTE | 2021-10-01 08:09 | NUR ---
CARE ASSUMPTION PATIENT IS ALERT AND ORIENTATED X4. PATIENT REPORTS BACK PAIN 9/10 AND RECEIVED PAON MED PER EMAR, AND REPOSITIONED. PATIENT REPORTS NO CHEST PAIN/PRESSURE, HEADACHE, NO NUMBNESS OR TINGLING IN UPPER EXTREMITIES. PATIENT DOES REPORT NUMBNESS AND TINGLING IN LOWER EXTREMITIES, THAT SHE STATES SHE HAS. PATIENT VSS. SPO2 >90% ON AIRVO 60L 60%. PATIENT SITTING IN BED EATING BREAKFAST. NS AT 15MLS INFUSING INTO PORT ACCESS. DRAKE CATH DRAINING WITH GRAVITY, YELLOW COLORATION. CALL LIGHT WITHIN REACH AND BED IN LOWEST POSITION. WILL CONTINUE TO MONITOR AND PROVIDE CARE.
--- NOTE | 2021-10-01 14:51 | NUR ---
Review of plan of care with Primary RN Rhianna. Pt showing some improvement today with plan to get Pt up to chair for dinner. Pt doing some proning but is mostly lays on her side. Family calls for updates. No new concerns reported at this time. Palliative Care will remain available.
--- NOTE | 2021-10-01 17:38 | NUR ---
SHIFT SUMMARY VSS. SPO2 >90% ON AIRVO 45L 45%. PATIENT A/OX4. NO ACUTE CHANGES THIS SHIFT. FEOLY DRAINING WITH GRAVITY. PORT ACCESS INFUSING AT 15MLS WITH NS. CALL LIGHT WITHIN REACH AND BED IN LOWEST POSITION. WILL CONTINUE TO MONITOR AND PROVIDE CARE UNTIL HAND OFF WITH NEXT SHIFT.
[2021-10-02 04:22] LABS: Hematocrit 43.7 % (33.0-51.0); Hemoglobin 13.4 g/dL (11.5-16.0); Mean Corpuscular HGB 22.3 pg (26.0-34.0); Mean Corpuscular HGB Conc 30.7 g/dL (31.5-36.5); Mean Corpuscular Volume 73 fL (80-100); Platelet Count 386 K/mm3 (150-400); RDW Coefficient Variation 20.1 % (11.7-14.2); RDW Standard Deviation 49.2 fL (35.1-46.3); White Blood Cell Count 20.23 K/mm3 (4.00-11.30)
[2021-10-02 04:27] LABS: Mean Platelet Volume 11.8 fL (9.1-12.4)
[2021-10-02 04:45] LABS: Alanine Aminotransfer (ALT/SGP 124 U/L (12-78); Albumin, Blood 2.4 g/dL (3.4-5.0); Albumin/Globulin Ratio 0.5 (0.8-1.8); Alk Phos 190 U/L (50-136); Anion Gap 10 mmol/L (6-16); Aspartate Aminotrans (AST/SGOT 80 U/L (12-37); Bilirubin, Total 0.6 mg/dL (0.1-1.0); Blood Urea Nitrogen 46 mg/dL (8-24); Bun/Creatinine Ratio 68.4 (12.0-20.0); CO2, Blood 27 mmol/L (21-32); Chloride, Blood 91 mmol/L (98-108); Creatinine, Blood 0.67 mg/dL (0.40-1.00); Glomerular Filtration Rate >60 (60-); Glucose, Blood 137 mg/dL (70-99); Magnesium, Blood 2.3 mg/dL (1.6-2.4); Potassium, Blood 3.4 mmol/L (3.5-5.5); Sodium, Blood 128 mmol/L (136-145); Thyroid Stimulating Hormone 0.818 uIU/mL (0.360-4.800); Total Protein, Blood 7.4 g/dL (6.4-8.2)
--- NOTE | 2021-10-02 05:53 | NUR ---
END OF SHIFT SUMMARY: PATIENT HAS DECREASED ON THE AMOUNT OF FLOW TO 45% WITH FIO2 55% VIA AIRVO, PATIENT SELF REPOSITIONED AND USED THE CALL LIGHT WHEN SHE NEEDED ASSISTANCE TO REPOSITION. PATIENT ORAL INTAKE HAS IMPROVED ALONG WITH APPETITE. PATIENT WAS RESTING MOST OF THE NIGHT WITH GOOD PAIN CONTROL ONCE SHE FOUND A COMFORTABLE POSITION. STILL AFLUTTER PACED AT 70, PORT INFUSING NS. DRAKE DRAINING TO GRAVITY WELL. WILL CONTINUE TO MONITOR
--- NOTE | 2021-10-02 07:35 | NUR ---
CARE ASSUMPTION PATIENT ALERT AND ORIENTATED X4. VSS. PATIENT REPORTS BACK PAIN 8/, AND WILL RECEIVE PAIN MEDS WITH MORNING MEDS AND APPLIED A HEAT PACK TO HER BACK. PATIENT REPORTS NUMBNESS AND TINGLING IN LOWER EXTREMITIES, THAT IS BASELINE. PATIENT REPORTS NO CHEST PAIN/PRESSURE, OR HEADACHE. PATIENT SITTING UP IN BED. PATIENT CALL LIGHT WIHIN REACH AND BED IN LOWEST POSITION. WILL CONTINUE TO MONITOR AND PROVIDE CARE.
--- NOTE | 2021-10-02 17:59 | NUR ---
SHIFT SUMMARY PATIENT A/OX4. VSS. SPO2 >90% ON AIRVO 45L 50%. NO ACUTE CHANGES THIS SHIFT. PATIENT RESTING IN BED WITH CALL LIGHT WITHIN REACH AND BED IN LOWEST POSITION. WILL CONTINUE TO MONITOR AND PROVIDE CARE UNTIL HAND OFF WITH NEXT SHIFT.
[2021-10-03 05:33] LABS: Hematocrit 42.1 % (33.0-51.0); Hemoglobin 12.9 g/dL (11.5-16.0); Mean Corpuscular HGB 22.6 pg (26.0-34.0); Mean Corpuscular HGB Conc 30.6 g/dL (31.5-36.5); Mean Corpuscular Volume 74 fL (80-100); Platelet Count 350 K/mm3 (150-400); RDW Coefficient Variation 20.5 % (11.7-14.2); Red Blood Cell Count 5.72 M/mm3 (3.80-5.20); White Blood Cell Count 17.76 K/mm3 (4.00-11.30)
--- NOTE | 2021-10-03 05:36 | NUR ---
SHIFT SUMMARY NOACUTE CHANGES THIS SHIFT. AXO. VSS. WAS ABLE TO TITRATE DOWN TO 40L AND 40% THIS SHIFT WHILE PATIENT WAS ASLEEP. NOW BACK UP TO BEGINNING RATE OF 45L 50-55%. SPO2 92%. REMAINS PACED 70 WITH UNDERLYING AFLUTTER. FOELY PATENT AD DRAINING. MEDIPORT WITH TKO AT 15-20MLS/HR NS. DRAWS WELL. PT TURNING SELF IN BED. USES CALL LIGHT APPROPRIATELY.
[2021-10-03 06:08] LABS: Alanine Aminotransfer (ALT/SGP 107 U/L (12-78); Albumin, Blood 2.3 g/dL (3.4-5.0); Albumin/Globulin Ratio 0.5 (0.8-1.8); Alk Phos 161 U/L (50-136); Anion Gap 6 mmol/L (6-16); Aspartate Aminotrans (AST/SGOT 55 U/L (12-37); Bilirubin, Total 0.6 mg/dL (0.1-1.0); Blood Urea Nitrogen 40 mg/dL (8-24); Bun/Creatinine Ratio 62.7 (12.0-20.0); CO2, Blood 30 mmol/L (21-32); Calcium, Blood 8.7 mg/dL (8.5-10.1); Chloride, Blood 95 mmol/L (98-108); Creatinine, Blood 0.64 mg/dL (0.40-1.00); Globulin, Blood 4.7 g/dL (2.2-4.0); Glomerular Filtration Rate >60 (60-); Glucose, Blood 91 mg/dL (70-99); Potassium, Blood 3.2 mmol/L (3.5-5.5); Sodium, Blood 131 mmol/L (136-145)
--- NOTE | 2021-10-03 08:30 | NUR ---
INITIAL ASSESSMENT: Patient is awake sitting up in bed trying to eat breakfast.Patient states she is "exhausted" this morning. Patient is oriented x4. She reports 7/10 lower back pain, she states this is chronic. AM dose of Oxicodone and Lyrica given. HR irreg, 100% paced with atrial flutter as an underlying rhythm. LS Dim in the bases, biox 91% on 45L high flow FIO2 55%. Patient has dry NPC. BT+. She refused her stool softners, she states she had 2 bowel movements yesterday. PPP. Moses cath patent and draining dark clear yellow urine. VSS. Other am medications given at this time. Patient denies other needs. Call light in reach, will continue to monitor.
--- NOTE | 2021-10-03 14:45 | NUR ---
Update: I went to give patient her pain medications. She was requesting to get OOB to the BSC. She did well, SBA with FWW to the bedside commode. She is very slow moving and appears to be exhausted. She was given a bath and linen change. Patient is back to bed. I was able to titrate her high flow oxygen down to 40L 40%, her oxygen saturations dropped from the mid 90s down to 90-91%, I then titrated her flow back up to 45L. Will continue to monitor and adjust O2 flow.
--- NOTE | 2021-10-03 15:59 | NUR ---
Update: Hubert MCKINNEY was able to trial patient off the high flow. Patients oxygen saturations on 12L high flow are 95-96%. Patient is resting with eyes closed. Denies needs at this time. Call light in reach. Will continue to monitor.
--- NOTE | 2021-10-03 16:00 | NUR ---
Update: RT was able to transition from the AIRVO to a high flow NC at 12L. After the transition the patient became upset stating "you are going to fast, Dr. Cárdenas told me that we would slowly wean my oxygen and you guys just keep turning it down." Patient is tearful. She states she is, "just overwhelmed." Staff resssured patient this is am improvement and she is getting closer to getting out of the hospital. Patient verbalized understanding.
--- NOTE | 2021-10-03 18:19 | NUR ---
Summary: Patient was admitted with COVID pneumonia, she has been here since 09/21. She started the day off on the AIRVO 45L 55% FIO2, we were able to titrate her down to a high flow NC with 12L, her oxygen saturations have been 93-96% on the 12L. Her LS were dim t/o the shift. She has a tenacious PC with thin white sputum. BT+, she refused all bowel care this am stating she had 2 bowel movements yesterday. VSS. Mediport needle changed today. Patient was OOB once today to the BSC she tolerated it well. No other acute changes this shift. Will report to oncoming RN.
--- NOTE | 2021-10-04 05:24 | NUR ---
SHIFT SUMMARY AXO. 100% PACED WITH UNDERLYING AFLUTTER. LESS WITHDRAWN THAN PREVIOUS SHIFT. PT HAD EPSIODE OF HOTN WITH MIDNIGHT VITALS, MANUAL SBP 80. THIS RESOLVED WITHOUT INTERVENTION. PT ASYMPTOMATIC THROUGH THIS. PT ON 11-13L HIFLO NC DEPRENDING ON POSITION IN BED. SPO2 92%. DRAKE PATENT AND DRAINING TO GRAVITY. MEDIPORT INFUSING WITH TKO NS. OTHERWISE, PT REMAINS IN ISOLATION. USES CALL LIGHT APPROPRIATELY.
[2021-10-04 05:33] LABS: Anion Gap 7 mmol/L (6-16); Blood Urea Nitrogen 37 mg/dL (8-24); Bun/Creatinine Ratio 55.5 (12.0-20.0); CO2, Blood 28 mmol/L (21-32); Calcium, Blood 8.3 mg/dL (8.5-10.1); Chloride, Blood 97 mmol/L (98-108); Creatinine, Blood 0.67 mg/dL (0.40-1.00); Glomerular Filtration Rate >60 (60-); Glucose, Blood 93 mg/dL (70-99); Potassium, Blood 3.9 mmol/L (3.5-5.5); Sodium, Blood 132 mmol/L (136-145)
--- NOTE | 2021-10-04 18:06 | NUR ---
END OF SHIFT SUMMARY: PATIENT HAS BEEN STABLE THORUGH THE DAY, BLOOD PRESSURE HAS NOT CHANGED FROM TREND, O2 IS AT 11 L HFNC AND PATIENT TOLERATING SPO2 91%. NO CHEST PAIN AFLUTTER PACED, DRAKE DRAINING TO GRAVITY, GREAT OUTPUT WITH LASIX ON BOARD. IS IMPROVING, GREAT ATTITUDE IN REGARDS TO ILLNESS. IS WILLING TO TRANSFER TO THE CHAIR, TOMORROW, REPOSITIONING SELF OFTEN. MEDIPORT RATE OF 15ML RUNNING TKO. WILL CONTINUE TO MONITOR AT THIS TIME.
--- NOTE | 2021-10-05 05:03 | NUR ---
SHIFT SUMMARY: PATIENT STABLE T/O SHIFT, NO ACUTE CHANGES. IMPROVED APPETITE AND ENGAGEMENT FROM PREVIOUS SHIFTS. TOLERATING NC AT 11L WITH SATS >92%. STATES SHE "STILL FEELS LIKE ANEL AND NOTHING IS HELPING." WILL CONTINUE TO MONITOR.
--- NOTE | 2021-10-05 09:55 | NUR ---
PATIENT ALERT AND ORIENTED X4. PERRLA, ABLE TO ANSWER ALL QUESTIONS APPROPRIATELY. NUMBNESS/TINGLING TO LOWER LEGS. ABLE TO MOVE ALL EXTREMITIES AND TURN SELF IN BED. TELE SHOWING PACED WITH HR IN THE 70'S. DENIES CHEST PAIN/PRESSURE. BP STABLE. UPON SHIFT START PATIENT ON 11L HIGH FLOW NASAL CANNULA SATING MID 80'S. RESPIRATORY CARE CALLED AND PATIENT PLACED ON HEATED HIGH FLOW AT 45L AND 60%. PATIENT MAINTAINING MID 90'S. SIDELYING AT THIS TIME. LUNGS SOUNDING DIMINISHED, NO WHEEZING HEARD. DENIES ABDOMINAL PAIN/NAUSEA. DRAKE CATH IN PLACE DRAINING CLEAR/YELLOW URINE TO GRAVITY. COMLPAINS OF BACK/LEG PAIN AND HEADACHE. MEDICATED PER EMAR WITH SOME RELIEF. TOLERATING PO. TAKING PILLS WHOLE WITH MEDS. ACHS BLOOD SUGARS. CALL LIGHT IN REACH. SLEEPING AT THIS TIME. WILL CONTINUE TO MONITOR.
--- NOTE | 2021-10-05 19:11 | NUR ---
SHIFT SUMMARY: PATIENT REMAINS ALERT AND ORIENTED. SEE PREVIOUS NOTES. ABLE TO TITRATE DOWN TO 9L HIGH FLOW NASAL CANNULA SATING MID 90'S. NO CHANGES IN TELE. PATIENT BEEN STRUGGLING WITH MIGRAINE ALL DAY. MULTIPLE ATTEMPTS WITH MEDICATIONS AND NON PHARMACOLOGICAL INTERVENTIONS WITH VERY MINIMAL RELIEF. DR. HOWARD CALLED, TORDAL ORDERED. PATIENT SLEEPING AT THIS TIME. EATING SMALL AMOUNTS. DRAKE CATH REMAINS IN PLACE DRAINING CLEAR/DANDRE URINE. CALL LIGHT IN REACH. REPORTED OFF TO ONCOMING RN.
--- NOTE | 2021-10-06 06:35 | NUR ---
SHIFT SUMMARY: PATIENT IMPROVING SLIGHTLY - ONLY ONE COMPLAINT OF HEADACHE THAT RESOLVED WITH EVENING PAIN MEDICATION AND REST. VS STABLE T/O SHIFT. O2 TITRATED TO 8L NC, SATS >91%. DRAKE DRAINING WELL; TKO NS RUNNING @15 ML/HR. NO ADVERSE EVENTS THIS SHIFT, WILL REPORT TO DAY RN.
--- NOTE | 2021-10-06 14:00 | NUR ---
PATIENT ALERT AND ORIENTED X4. PERRLA. ABLE TO TURN SELF IN BED AND MOVE ALL EXTREMITIES. COMPLAINS OF CHRONIC BACK PAIN AND HEADACHE THIS AM. MEDICATED PER EMAR. INCREASE OF O2 DEMAND THIS AM, FROM 8L NASAL CANNULA TO 45L AND 55% HIGH FLOW NASAL CANNULA. TITRATING DOWN ABLE. LUNGS SONDING CLEAR AND DIM. OCCASIONAL COUGH. SOB WITH MOVEMENT. TELE SHOWING PACED WITH HR 70'S. DENIES CHEST PAIN/PRESSURE. VITAL SIGNS STABLE. DENIES ABDOMINAL PAIN/NAUSEA. DRAKE CATH IN PLACE DRAINING DANDRE COLORED URINE. TOLERATING PO DIET. TAKING PILLS WHOLE. UP TO RECLINER FOR LUNCH. PATIENT ONLY TOLERATED RECLINER FOR ONE HOUR, BACK TO BED DUE TO BACK PAIN. MEDICATED PER EMAR. NORMAL SALINE RUNNING @ KVO TO basno. CALL LIGHT IN REACH. PATIENT SLEEPING AT THIS TIME. WILL CONTINUE TO MONITOR.
--- NOTE | 2021-10-06 16:29 | NUR ---
UPDATE: ABLE TO TITRATE PATIENT FROM 45L AND 45% ON HIGH FLOW NASAL CANNULA DOWN TO 11L NASAL CANNULA SATING AT 93-94%. WILL CONTINUE TO MONITOR.
--- NOTE | 2021-10-06 17:57 | NUR ---
SHIFT SUMMARY: NO ACUTE CHANGES. PATIENT EATING DINNER AT THIS TIME. TELE REMAINS PACED WITH HR 70. DENIES CHEST PAIN/PRESSURE. VITAL SIGNS STABLE. BP ON SOFTER SIDE. ABLE TO TITRATE PATIENT DOWN TO 10L HIGH FLOW NASAL CANNULA. SATING MID 90'S. PATIENT COMPLAINED OF BACK SPASMS IN AFTERNOON, WHICH HAVE BEEN RELIEVED. UP TO RECLINER X1 TODAY FOR ONE HOUR. PATIENT DID NOT TOLERATE WELL, DUE TO CHRONIC BACK PAIN. DENIES NEEDS AT THIS TIME. CALL LIGHT IN REACH. WILL CONTINUE TO MONITOR AND REPORT OFF TO ONCOMING RN.
[2021-10-07 05:21] LABS: Anion Gap 5 mmol/L (6-16); Blood Urea Nitrogen 23 mg/dL (8-24); Bun/Creatinine Ratio 36.3 (12.0-20.0); CO2, Blood 26 mmol/L (21-32); Calcium, Blood 8.4 mg/dL (8.5-10.1); Chloride, Blood 108 mmol/L (98-108); Creatinine, Blood 0.63 mg/dL (0.40-1.00); Glomerular Filtration Rate >60 (60-); Glucose, Blood 79 mg/dL (70-99); Potassium, Blood 4.2 mmol/L (3.5-5.5); Sodium, Blood 139 mmol/L (136-145)
--- NOTE | 2021-10-07 05:36 | NUR ---
SHIFT SUMMARY: PATIENT HAS MAINTAINED O2 SATS >87 ON 9L NC T/O SHIFT. PATIENT HAS DIFFICULTY GETTING COMFORTABLE IN BED BUT REFUSED COMFORT MEASURES. NEW BAG OF NS TKO RUNNING AT 15 ML/HR. NO ADVERSE EVENTS THIS SHIFT. WILL CONTINUE TO MONITOR AND REPORT TO ONCOMING RN.
--- NOTE | 2021-10-07 08:00 | NUR ---
CARE ASSUMPTION PATIENT IS ALERT AND ORIENTATED X4. VSS. PATIENT REPORTS NUMBNESS AND TINGLING BILATERALLY TO FEET AND REPORTS BACK PAIN 8/10 AND PROVIEED PAIN MED PER EMAR. PATIENT REPORTS MILD HEADACHE. PATIENT HAS NO SHORTNESS OF BREATH, BUT BECOMES SHORT OF BREATH WITH EXERTION. THIS RN DISCUSSED THIS POSSIBLE REMOVEL OF THE DRAKE CATH AND REASONING FOR DRAKE IN PLACE, AND PATIENT STATED LONG SHE WAS ON LASIX AND STILL WEAK THE CATHETER IS STAYING IN. DRAKE IN PLACE DRAINING WITH GRAVITY CLEAR YELLOW COLORATION. SEE SHIFT ASSESSMENT FOR FULL ASSESSMENT OF PATIENT. CALL LIGHT WITHIN REACH AND BED IN LOWEST POSITION. WILL CONTINUE TO MONITOR AND PROVIDE CARE.
--- NOTE | 2021-10-07 17:14 | NUR ---
SHIFT SUMMARY PATIENT A/OX4. PATIENT GOT UP ONCE TODAY TO USE THE BEDSIDE COMODE, BUT OTHER THAN THAT DIDN'T WANT TO. THIS RN ENCOURAGED GETTING UP AT LUNCH AND FOR DINNER, BUT PATIENT REFUSED. NO ACUTE CHANGES THIS SHIFT. PATIENT SPO2 >90% ON 11L HIGH FLOW NASAL CANAL. VSS. CALL LIGHT WITHIN REACH AND BED IN LOWEST POSITION. WILL CONTINUE TO MONITOR AND PROVIDE CARE UNTIL HAND OFF WITH NEXT SHIFT.
--- NOTE | 2021-10-08 05:28 | NUR ---
SHIFT SUMMARY NO ACUTE EVENTS THIS SHIFT. PT ALERT AND ORIENTED X4. LETHARGIC. ON 10L HFNC, TITRATED DOWN FROM 11L, MAINTAINING SATS OVER 93%. BEDREST. DESATS WITH MOVEMENT. C/O 8/10 BACK PAIN AND HEADACHE. MEIDCATED PER EMAR. DRAKE IN PLACE DRAINING YELLOW URINE TO GRAVITY. C/O INSOMNIA. MEDICATED PER EMAR. MEDIPORT TKO INFUSING AT 15ML/HR. IN BED SLEEPING WITH CALL ALARM AT SIDE. WILL CONTINUE TO MONITOR UNTIL REPORT GIVEN TO DAYSHIFT RN
--- NOTE | 2021-10-09 06:43 | NUR ---
SHIFT SUMMARY PT ALERT AND ORIENTED X4. STARTED SHIFT ON 10L HFNC. BP STABLE. HR AFLUTTER PACED 70'S. C/O 8/10 BACK PAIN + HEADACHE, MEDICATED PER EMAR. C/O INSOMNIA AND ANXIETY, MEDICATED PER EMAR. DRAKE IN PLACE DRAINING YELLOW URINE TO GRAVITY. NO COVERAGE NEEDED FOR BLOOD SUGARS. MEDIPORT RUNNING 15ML/HR NS. AT 0240 PT COMPLAINS OF 8/10 LEFT LOWER CHEST PAIN AND SOB . TWO DOSES OF NITRO GIVEN. PAIN UNRELIEVED. PT VISIBILY DISTRESSED. O2 DESATS INTO LOW 80'S DESPITE HFNC TITRATED UP. CHARGE NURSE WALTER NOTIFIED, RT TJ, AND PROVIDER. PT PUT ON 15L NON-REBREATHER. STAT EKG ORDER AND PT SENT FOR CT-PE SCAN. SATS ON 15L NRB MAINTAINED OVER 90%. BP AND HR REMAINED STABLE. CT-PE NEGATIVE FOR PE. PT RETURNED FROM CT AND 50 MCG OF FENTANYL GIVEN FOR MINIMAL RELIEF. PT PLACED ON CPAP AT THIS TIME. TORADOL 30MG GIVEN AND PT MANAGED TO FALL ASLEEP WITH RELIEF FROM PAIN. BP STABLE AND O2 MAINTAINING OVER 95%. PT IN BED SLEEPING WITH CPAP ON. WILL CONTINUE TO MONITOR UNTIL REPORT GIVEN TO DAYSHELENE JEWELL
[2021-10-09 07:06] LABS: BASOPHILS ABSOLUTE AUTO 0.07 K/mm3 (0.00-0.23); BASOPHILS PERCENT AUTO 1 % (0-2); EOSINOPHILS ABSOLUTE AUTO 0.21 K/mm3 (0.00-0.68); EOSINOPHILS PERCENT AUTO 1 % (0-6); Hematocrit 35.7 % (33.0-51.0); Hemoglobin 10.7 g/dL (11.5-16.0); IMMATURE GRAN ABSOLUTE AUTO 0.25 K/mm3 (0.00-0.10); IMMATURE GRAN PERCENT AUTO 2 % (0-1); LYMPHOCYTES ABSOLUTE AUTO 1.71 K/mm3 (0.84-5.20); LYMPHOCYTES PERCENT AUTO 12 % (21-46); MONOCYTES ABSOLUTE AUTO 1.05 K/mm3 (0.16-1.47); MONOCYTES PERCENT AUTO 7 % (4-13); Mean Corpuscular HGB 23.3 pg (26.0-34.0); Mean Corpuscular Volume 78 fL (80-100); Mean Platelet Volume 11.3 fL (9.1-12.4); NEUTROPHILS PERCENT AUTO 78 % (41-73); Platelet Count 292 K/mm3 (150-400); RDW Coefficient Variation 22.4 % (11.7-14.2); RDW Standard Deviation 58.4 fL (35.1-46.3); White Blood Cell Count 14.69 K/mm3 (4.00-11.30)
[2021-10-09 07:18] LABS: Anion Gap 6 mmol/L (6-16); Blood Urea Nitrogen 15 mg/dL (8-24); CO2, Blood 25 mmol/L (21-32); Chloride, Blood 106 mmol/L (98-108); Creatinine, Blood 0.65 mg/dL (0.40-1.00); Glomerular Filtration Rate >60 (60-); Glucose, Blood 123 mg/dL (70-99); Potassium, Blood 4.2 mmol/L (3.5-5.5); Sodium, Blood 137 mmol/L (136-145)
--- NOTE | 2021-10-09 19:14 | NUR ---
PATIENT DENIES FURTHER CHEST PAIN, WAS SLEEPING MOST OF THE DAY, WAS ABLE TO TOLERATE BEING ON NC AND TITRATED DOWN TO 6-7L VIA HFNC, WHICH SPO2>92% EVEN DURING SLEEP. STILL AFLUTTER PACED, NO BM, DRAKE DRAINING DARKER YELLOW URINE. SKIPPED AFTERNOON SCHEDULED PAIN MEDS DUE TO PATIENT SLEEPING SO WELL. NO INSULIN COVERAGE WAS NEEDED TODAY. PATIENT ENDORSING TO FEELING BETTER. WILL CONTINUE TO MONITOR.
--- NOTE | 2021-10-10 05:20 | NUR ---
SHIFT SUMMARY PT ALERT AND ORIENTED X4. CONTINUES TO HAVE CHRONIC BACK PAIN 04/26. RELIEF WITH SCHEDULED OXYCODONE. NO C/O CHEST PAIN TONIGHT. INSOMNIA AND ANXIETY LATE AT NIGHT, RELIEF WITH XANAX. BP STABLE, HR PACED AFLUTTER. O2 SATS MAINTAINING OVER 94% W/ 6L NC. ASLEEP SINCE 2AM. IN BED SLEEPING WITH CALL ALARM AT SIDE. WILL CONTINUE TO MONITOR UNTIL REPORT GIVEN TO DAYSHIFT RN
--- NOTE | 2021-10-10 16:15 | NUR ---
END OF SHIFT SUMMARY: INFUSING TKO 15ML, PATIENT HAS BEEN EVALUATED BY PT. SPO2 DID DROP WITH EXERTION HOWEVER, AFTER WAS ABLE TO BE TITRATED DOWN TO 5L VIA NC, PATIENT HAS BEEN ATRIAL FLUTTER, 100% PACED AT 70. PATIENT PAIN HAS BEEN TOLERABLE ENDORSES BEING ABLE TO BREATH BETTER DUE TO PAIN MED REGIMENT. FELT LIKE SHE IS IMPROVING, SPOKE WITH HOSPITALIST POSSIBLE FLOOR TRANSFER, DEXMETHASONE FROM IV TO PO. PATIENT PRODUCING GREAT URINE OUTPUT WITH LASIX. NO BM TODAY. DENIES CHEST PAIN OR DISCOMFORT. CBGS HAVE NOT NEEDED MEDICATED.
--- NOTE | 2021-10-11 06:20 | NUR ---
SHIFT SUMMARY PATIENT ALERT AND ORIENTED x4 T/O SHIFT. SLEPT OFF AND ON DURING THE NIGHT. VSS. PATIENT REMAINS ON 5.5L NC WITH O2 SATS ABOVE 90%. PACED IN THE 70s. PATIENT DESATS WITH ACTIVITY AND PROLONGED CONVERSATION. ANXIOUS AT TIMES AND REQUESTED PRN XANAX ONCE THIS SHIFT. MEDICATED PER EMAR FOR PAIN. NO OTHER SIGNIFICANT CHANGES TO PATIENT THIS SHIFT. WILL REPORT TO DAY SHIFT RN.
--- NOTE | 2021-10-11 07:45 | NUR ---
INITIAL ASSESSMENT: Patient is awake and lying in bed. She is alert and oriented. She complains of 7/10 lower back pain she states this is chronic, medicated with her home dose of lyricia and oxycodone. HR irreg, paced with underlying flutter. LS DIM in the bases, Biox mid 90s on 5l via NC. BT hypoactive, pt states she will start taking her stool softners this AM. PPP. Patient is talking about PT/OT SNF recommendation, she would rather go home, but is not quite ready, will discuss this with this AM.VSS. AM meds given at this time.
--- NOTE | 2021-10-11 10:30 | NUR ---
Update: Dr. Wang has been to see the patient, she was downgraded to medical status no telemetry. She continues to voice concern about the SNF recommendation, she would rather go home. She is requesting her lasix dose be increased back up to 40 mg, she states in the past she has ran into trouble when they try to titrate her dose down. Dr. Wang is agreeable. Report given to Bren huertas RN. Patient is transferred via bed to room 304.
--- NOTE | 2021-10-11 18:33 | NUR ---
SHIFT SUMMARY- PT IS A/O, PLESANT AND COOPERATIVE. SHE TRANSFERED FROM [facility] THIS AFTERNOON. SHE IS EATING AND DRINKING WELL. SHE IS BEING TREATED FOR CHRONIC PAIN. SHE WAS SLEEPING FOR MUCH OF THIS SHIFT. SHE HAS A DRAKE IN PLACE IT IS PATIENT AND DRAINING WELL. HER BED IS IN THE LOW POSITION AND CALL LIGHT IS WITIN REACH.
--- NOTE | 2021-10-12 00:28 | NUR ---
I SPOKE TO THE PT ABOUT BEGINNING BLADDER TRAINING - PT IS REFUSING AT THIS TIME. PT REPORTS SHE FEELS "LIKE CRAP." PT REPORTS A HISTORY OF MIGRAINE HEADACHES - JUST MEDICATED WITH FIORCET, AND ZOFRAN FOR NAUSEA. WILL ATTEMPT BLADDER TRAINING AGAIN IN THE AM. CALL LIGHT WITHIN REACH. BED IN LOW POSITION.
[2021-10-12 04:32] LABS: Hemoglobin 10.5 g/dL (11.5-16.0); Mean Corpuscular Volume 80 fL (80-100); Mean Platelet Volume 10.9 fL (9.1-12.4); Platelet Count 254 K/mm3 (150-400); RDW Coefficient Variation 23.4 % (11.7-14.2); RDW Standard Deviation 65.7 fL (35.1-46.3); Red Blood Cell Count 4.38 M/mm3 (3.80-5.20)
[2021-10-12 05:08] LABS: Anion Gap 4 mmol/L (6-16); Blood Urea Nitrogen 27 mg/dL (8-24); Bun/Creatinine Ratio 40.8 (12.0-20.0); CO2, Blood 26 mmol/L (21-32); Calcium, Blood 8.6 mg/dL (8.5-10.1); Chloride, Blood 108 mmol/L (98-108); Creatinine, Blood 0.66 mg/dL (0.40-1.00); Glomerular Filtration Rate >60 (60-); Glucose, Blood 81 mg/dL (70-99); Potassium, Blood 4.9 mmol/L (3.5-5.5); Sodium, Blood 138 mmol/L (136-145)
--- NOTE | 2021-10-12 06:40 | NUR ---
PT AGREEABLE TO HAVE DRAKE CLAMPED THIS AM - CLAMPED DRAKE FOR BLADDER TRAINING AT 0640.
--- NOTE | 2021-10-12 07:21 | NUR ---
SHIFT SUMMARY - NO ACUTE CHANGES THIS SHIFT. PT REMAINS ON 6L HIGH FLOW NC - CONTINUOUS BIOX IN PLACE - SATS WNL. PT SLEPT FOR APPX 4-5 HOURS TONIGHT, AFTER 2ND DOSE OF FIORICET GIVEN. PT REPORTED A PAST HISTORY OF MIGRAINES. BLADDER TRAINING BEGAN THIS AM - SEE PREVIOUS NOTE ON TIME STARTED - REPORTED THIS TO AM SHIFT. CALL LIGHT WITHIN REACH. BED IN LOW POSITION. FLUIDS AT BEDSIDE.
--- NOTE | 2021-10-12 12:30 | NUR ---
Received referral from nurse home health care case manager (Ofelia Mas) on 10/12/2021. Patient is to discharge with orders for home health and elected [facility]. Met with patient to further discuss the above. Patient is agreeable to the above. Discussed homebound status definition with patient. Patient verbalized understanding. Discussed what home health is vs what it is not (in home caregivers/housekeeping). Patient verbalized understanding. Discussed the next steps in the process of an initial assessment to determine frequency of visits. Again patient verbalized understanding. Offered a chance for patient to ask questions regarding the above of which there were none. At this time patient has no discharge orders entered. Will continue to monitor and follow for discharge. Ashtyn Braga Referral Liaison
--- NOTE | 2021-10-12 19:20 | NUR ---
SHIFT SUMMARY- PT IS A/O PLESANT AND COOPERATIVE. SHE HAS HAD A PERSISTANT HEADACHE THIS SHIFT. SHE RECIEVED MEDICATIONS FOR. SHE TOOK A SHOWER THIS SHIFT. HER MEDIPORT WAS DEACCESSED. HER DRAKE WAS REMOVED AND SHE WAS ABLE TO VOID. HER BED IS IN THE LOW POSITION AND CALL LIGHT IS WITHIN REACH.
--- NOTE | 2021-10-13 04:06 | NUR ---
TAX ACCOUNTING MANAGER SUMMARY ADMITTED FOR COVID19 (RESOLVED). PT IS FULL CODE. PLAN FOR DC TO SNF. SHE IS CURRENTLY ON 6L BY DC. SHE REPORTS BEING WEAK, BUT IS ENCOURAGED TO GET TO [facility] TO URINATE. PT MEDICATED WITH SCHEDULED PAIN MEDICATION FOR CHRONIC BACK PAIN AND HEADACHE. HAS BEEN RESTING THROUGHOUT THE SHIFT. NO OTHER CONCERNS.
--- NOTE | 2021-10-13 18:14 | NUR ---
SHIFT SUMMARY PT AXO X4, POOR MOTIVATION FOR AMBULATION. LAYING IN BED FOR THE WHOLE SHIFT. COMPLAINED OF MIGRAINE AND BACK PAIN, MEDICATED PER EMAR. NO OTHER CHANGES THIS SHIFT. BED IN LOW POSITION, CALL LIGHT WITHIN REACH. SOME MEDICATIONS HELD FOR BP, SEE MAR. DR ANTHONY AWARE.
--- NOTE | 2021-10-14 06:03 | NUR ---
Patient slept well throughout the night. Patient with low motivation for movement. Plan to go to SNF after discharge. Stable at this time. Call light within reach, bed in low position. We are continue with monitoring patient.
--- NOTE | 2021-10-14 10:51 | NUR ---
Received notification from nurse wild animal caretaker (Ofelia Mas) that patient will be discharged today to a SNF. Notified [facility] clay puddler (Marli Duran) of the above. No further interventions required. Ashtyn Braga Referral Liaison
[2021-10-14] MEDS ORDERED: GUAI600T33 PO (11:33)
[2021-10-14] MEDS ORDERED: BUTALBITAL-ASA1 EACH PO (11:43)
[2021-10-14] MEDS ORDERED: DEXA4 (11:44)
--- NOTE | 2021-10-14 13:41 | NUR ---
SUMMARY/DISCHARGE PT DISCHARGED TO [facility], REPORT TO CINDY NURSE AT [facility], PT TAKEN OUT VIA WHEELCHAIR
== END 2021-10-14 13:15 | DRG 177 ==
LOC: ER 19:27 → ERHOLD 23:08 → PCU 23:08 → MEDS 10-11 10:34
PROVIDERS: Emergency Medicine; Internal Medicine; ADMIT Internal Medicine
PROC: 8E0ZXY6 Isolation (ICD-10-PCS; principal; 2021-09-21)
PROC: 3E0333Z Introduction of Anti-inflammatory into Peripheral Vein, Percutaneous Approach (ICD-10-PCS; 2021-09-21)
PROC: XW0DXM6 Introduction of Baricitinib into Mouth and Pharynx, External Approach, New Technology Group 6 (ICD-10-PCS; 2021-09-21)
PROC: 3E0DX3Z Introduction of Anti-inflammatory into Mouth and Pharynx, External Approach (ICD-10-PCS; 2021-09-21)
PROC: XW033E5 Introduction of Remdesivir Anti-infective into Peripheral Vein, Percutaneous Approach, New Technology Group 5 (ICD-10-PCS; 2021-09-21)
PROC: 5A0955A Assistance with Respiratory Ventilation, Greater than 96 Consecutive Hours, High Flow/Velocity Cannula (ICD-10-PCS; 2021-09-21)
DX: U07.1 COVID-19 (principal); J96.01 Acute respiratory failure with hypoxia; J12.82 Pneumonia due to coronavirus disease 2019; I50.32 Chronic diastolic (congestive) heart failure; I13.0 Hypertensive heart and chronic kidney disease with heart failure and stage 1 through stage 4 chronic kidney disease, or unspecified chronic kidney disease; J44.0 Chronic obstructive pulmonary disease with (acute) lower respiratory infection; I48.20 Chronic atrial fibrillation, unspecified; Z53.20 Procedure and treatment not carried out because of patient's decision for unspecified reasons; I25.10 Atherosclerotic heart disease of native coronary artery without angina pectoris; G47.33 Obstructive sleep apnea (adult) (pediatric); F17.210 Nicotine dependence, cigarettes, uncomplicated; G89.4 Chronic pain syndrome; N18.9 Chronic kidney disease, unspecified; E11.22 Type 2 diabetes mellitus with diabetic chronic kidney disease; I25.5 Ischemic cardiomyopathy; E78.00 Pure hypercholesterolemia, unspecified; F41.8 Other specified anxiety disorders; M79.7 Fibromyalgia; M54.9 Dorsalgia, unspecified; E87.6 Hypokalemia; F11.90 Opioid use, unspecified, uncomplicated; G43.909 Migraine, unspecified, not intractable, without status migrainosus; M19.90 Unspecified osteoarthritis, unspecified site; Z98.1 Arthrodesis status; Z98.51 Tubal ligation status; Z98.891 History of uterine scar from previous surgery; I25.2 Old myocardial infarction; Z95.810 Presence of automatic (implantable) cardiac defibrillator; Z86.73 Personal history of transient ischemic attack (TIA), and cerebral infarction without residual deficits; Z87.11 Personal history of peptic ulcer disease; Z87.442 Personal history of urinary calculi; Z90.49 Acquired absence of other specified parts of digestive tract; Z90.89 Acquired absence of other organs; Z98.890 Other specified postprocedural states; Z88.1 Allergy status to other antibiotic agents; Z88.2 Allergy status to sulfonamides; Z88.8 Allergy status to other drugs, medicaments and biological substances; Z79.02 Long term (current) use of antithrombotics/antiplatelets; Z79.4 Long term (current) use of insulin; Z79.899 Other long term (current) drug therapy
CPT/HCPCS: 36415; 36600; 71045; 71260; 80048; 80053; 81001; 82728; 82803; 82947; 83735; 83880; 84132; 84145; 84443; 84484; 85025; 85027; 85379; 86140; 87077; 87086; 87186; 93005; 93010; 94660; 94762; 96374; 96375; 97110; 97162; 97530; 99285-25; A9270; C9399; J0248; J1100; J1885; J1940; J2405; J2765; J3010; J3480; J7050; M0243; Q9967